=== PATIENT | female | born 1975 | race Caucasian/White ===

== ENCOUNTER → 2017-07-03 13:34 | Outpatient (CLI) | payer OTHER, SELFPAY ==
[2017-07-03 15:07] LABS: Anion Gap 7 (5-15); BUN 10 mg/dL (7-18); BUN/Creat Ratio 12.8 RATIO (10-20); Calcium,Total 8.3 mg/dL (8.5-10.1); Chloride 102 mmol/L (98-107); Creatinine, Serum 0.78 mg/dL (0.55-1.02); EST Glomerular Filtration Rate 86 mL/min (>60); Est Glom Filt Rate - Afr Amer 104 mL/min (>60); Glucose 82 mg/dL (70-110); Potassium 3.9 mmol/L (3.5-5.1); Sodium Level 139 mmol/L (136-145)
== END ==
PROVIDERS: Family Provider Family Medicine; PCP Family Medicine; Visit Provider Family Medicine
DX: R60.9 Edema, unspecified (principal)
CPT/HCPCS: 36415; 80048

== ENCOUNTER → 2017-07-17 10:56 | Outpatient (CLI) | payer OTHER, SELFPAY ==
[2017-07-17 13:10] LABS: Anion Gap 11 (5-15); BUN 9 mg/dL (7-18); Calcium,Total 8.3 mg/dL (8.5-10.1); Chloride 102 mmol/L (98-107); Creatinine, Serum 0.82 mg/dL (0.55-1.02); EST Glomerular Filtration Rate 81 mL/min (>60); Est Glom Filt Rate - Afr Amer 99 mL/min (>60); Glucose 121 mg/dL (74-106); Potassium 3.3 mmol/L (3.5-5.1); Sodium Level 139 mmol/L (136-145)
[2017-07-17 13:15] LABS: BNP,B-Type NATRIURETIC PEPTIDE < 2.0 pg/mL (0-100)
== END ==
PROVIDERS: Family Provider Family Medicine; PCP Family Medicine; Visit Provider Family Medicine
DX: R10.9 Unspecified abdominal pain (principal); R60.9 Edema, unspecified
CPT/HCPCS: 36415; 80048; 83880; 87086; 87088

== ENCOUNTER → 2017-07-28 11:32 | Outpatient (CLI) | payer OTHER, SELFPAY ==
[2017-07-28 14:01] LABS: Anion Gap 4 (5-15); BUN 7 mg/dL (7-18); BUN/Creat Ratio 7.5 RATIO (10-20); Calcium,Total 8.4 mg/dL (8.5-10.1); Chloride 105 mmol/L (98-107); Creatinine, Serum 0.94 mg/dL (0.55-1.02); EST Glomerular Filtration Rate 69 mL/min (>60); Est Glom Filt Rate - Afr Amer 84 mL/min (>60); Glucose 84 mg/dL (74-106); Potassium 4.2 mmol/L (3.5-5.1); Sodium Level 141 mmol/L (136-145)
== END ==
PROVIDERS: Family Provider Family Medicine; PCP Family Medicine; Visit Provider Family Medicine
DX: R60.9 Edema, unspecified (principal)
CPT/HCPCS: 36415; 80048

== ENCOUNTER → 2017-07-30 16:43 | Outpatient (CLI) | payer OTHER, SELFPAY ==
--- NOTE | 2017-07-30 16:46 | RAD_ITS ---
STUDY: X-RAY - ABDOMEN/PELVIS REASON FOR EXAM: Female, 41 years old. Left-sided hip pain TECHNIQUE: 4 views COMPARISON: None. FINDINGS: Normal visualized lung bases. There is an unremarkable bowel gas pattern. There is no demonstrated free abdominal air. The visualized liver, spleen and kidneys are grossly normal in size and morphology. Surgical clips in the pelvis likely from tubal ligation Normal soft tissue structures. Normal visualized osseous structures. RAD/Abd Inc Decub and/or Erect IMPRESSION: Normal x-ray examination of the abdomen and pelvis. Electronically Signed: Karan Santana MD at 10:33 EST , Service support ,
== END ==
PROVIDERS: Family Provider Family Medicine; PCP Family Medicine; Visit Provider Family Medicine
DX: R10.9 Unspecified abdominal pain (principal)
CPT/HCPCS: 74019

== ENCOUNTER → 2017-08-11 08:52 | Outpatient (CLI) | payer OTHER, SELFPAY ==
--- NOTE | 2017-08-11 08:53 | RAD_ITS ---
XR Spine Lumbar Min 4 Views INDICATION: back pain, no injury COMPARISON: None TECHNIQUE: 5 views of the lumbar spine FINDINGS: There is minimal left convex scoliosis of the lumbar spine. There are 5 lumbar type nonrib-bearing vertebral bodies. There is normal lumbar lordosis. Height of the vertebral bodies and intervertebral disc spaces is preserved. There is normal alignment at the facet joints. Cholecystectomy clips are noted. RAD/L/S Spine Min 4 Views IMPRESSION: Minimal left convex scoliosis of the lower spine. Otherwise unremarkable exam. at 1922 Reported and signed by: Bettie Jean MD Electronically Signed: Bettie Jean MD at 18:20 EST Tel , Service support ,
== END ==
PROVIDERS: Family Provider Family Medicine; PCP Family Medicine; Visit Provider Family Medicine
DX: M54.9 Dorsalgia, unspecified (principal)
CPT/HCPCS: 72110

== ENCOUNTER → 2017-08-18 13:28 | Outpatient (CLI) | payer OTHER, SELFPAY ==
--- NOTE | 2017-08-18 13:31 | ECHOCS_ITS ---
Reason For Study: EDEMA Procedure This was a 2D Doppler, Color Flow transthoracic echocardiogram. The study was technically difficult. Due to body habitus. Contrast injection was performed. Exam performed in department. Left Ventricle Normal LV size. Left ventricular systolic function is normal. The estimated ejection fraction is 60 %. Normal diastology for age. No regional wall motion abnormalities noted. Right Ventricle Normal RV size. Normal systolic function. Atria Normal left atrium. Normal right atrium. Mitral Valve Normal mitral valve. Tricuspid Valve Normal tricuspid valve. Mild (1+) tricuspid valve insufficiency. Pulmonary artery systolic pressure is 26 mmHg. Aortic Valve The aortic valve is not well visualized. Pulmonic Valve The pulmonic valve is not well visualized. Great Vessels Normal aortic root. The pulmonary artery is normal size. Normal inferior vena cava. Pericardium/Pleural No pericardial effusion. Medication 22 gauge I.V. with prn adaptor inserted into right arm. Diluted definity 3.0ml given slow IV push to enhance endocardial definition. MMode/2D Measurements & Calculations LVIDd: 5.2 cm IVSd: 1.1 cm Ao root diam: 2.8 cm LVIDs: 3.6 cm LVPWd: 1.4 cm LA dimension: 4.5 cm RVDd: 3.3 cm FS: 31.9 % LAV(MOD-bp): 56.2 ml LAV(MOD-bp) Indexed: 21.8 ml/m2 LA A4 area: 21.2 cm2 LAV(MOD-sp2): 48.1 ml LAV(MOD-sp4): 54.0 ml Doppler Measurements & Calculations MV E max juan josé: 96.8 cm/sec Lat Peak E' Juan José: 20.2 cm/sec Med Peak E' Juan José: 15.3 cm/sec MV A max juan josé: 64.2 cm/sec E/E' lat: 4.8 E/E' med: 6.3 MV E/A: 1.5 Ao V2 max: 161.8 cm/sec LV V1 max: 114.9 cm/sec PA V2 max: 110.2 cm/sec Ao max P.5 mmHg LV V1 max P.3 mmHg TR max juan josé: 229.0 cm/sec TR max P.0 mmHg Interpretation Summary Normal LV size. Left ventricular systolic function is normal. The estimated ejection fraction is 60 %. Normal diastology for age. Mild (1+) tricuspid valve insufficiency. Ordering Physician: Talon Ag Referring Physician: Talon Ag Performed By: Penelope Emerson, EULALIA, RVT
== END ==
PROVIDERS: Family Provider Family Medicine; PCP Family Medicine; Visit Provider Family Medicine
DX: R60.9 Edema, unspecified (principal); I07.1 Rheumatic tricuspid insufficiency
CPT/HCPCS: 93306; Q9957; A4216; C8929

== ENCOUNTER → 2017-09-02 10:14 | Outpatient (CLI) | payer OTHER, SELFPAY ==
--- NOTE | 2017-09-02 10:45 | MRI_ITS ---
STUDY: MRI LUMBAR SPINE WITHOUT CONTRAST REASON FOR EXAM: Female, 41 years old. back pain, leg pain,swelling; nki TECHNIQUE: Standardized fat and water weighted pulse sequences were obtained in the sagittal and axial planes. COMPARISON: X-ray August 11, 2017 FINDINGS: There is an exaggerated lumbar lordosis. There is no substantial scoliosis. Normal conus medullaris that terminates at the L1 level. There is slight retrolisthesis at L5-S1. Disc heights are maintained and discs are normally desiccated. Vertebral body heights are maintained. There is a T12 hemangioma. There is multilevel facet arthropathy and ligamentum flavum hypertrophy. T12/L1: Sagittal images only were obtained. Normal. L1/2: Normal disc. No central canal or neuroforaminal stenosis. L2/3: Normal disc. No central canal or neuroforaminal stenosis. L3/4: Normal disc. No central canal or left neuroforaminal stenosis. There is minimal right neuroforaminal stenosis. L4/5: Normal disc. No central canal or neuroforaminal stenosis. L5/S1: There is minimal diffuse bulge. No central canal or neuroforaminal stenosis. Normal visualized sacral ala. Normal visualized paraspinous soft tissue structures. MRI/Spine Lumbar (Routine) IMPRESSION: There is multilevel facet arthropathy and ligamentum flavum hypertrophy. Mild degenerative disc disease at L5-S1. Electronically Signed: Ivonne Mckenna MD at 12:40 EDT , Service support ,
== END ==
PROVIDERS: Family Provider Family Medicine; PCP Family Medicine; Visit Provider Family Medicine
DX: M54.9 Dorsalgia, unspecified (principal)
CPT/HCPCS: 72148

== ENCOUNTER → 2017-10-03 10:13 | Outpatient (CLI) | payer OTHER, SELFPAY ==
[2017-10-03 12:56] LABS: Chlamydia Trachomatis by PCR Negative (Negative); Neisserai gonorrhoeae by PCR Negative (Negative); Probe Check PASS; Sample Adequacy Control PASS; Specimen Processing Control PASS
== END ==
PROVIDERS: Visit Provider Obstetrics & Gynecology
DX: Z11.3 Encounter for screening for infections with a predominantly sexual mode of transmission (principal)
CPT/HCPCS: 87491; 87591

== ENCOUNTER 2018-03-12 13:27 | Emergency (ER) | payer OTHER, SELFPAY ==
[2018-03-12 13:28] VITALS: BP 131/79; PULSE 81; RESP 15; TEMP 36.7; O2SAT 96; BMI 44.4
--- NOTE | 2018-03-12 13:41 | EKG12_ITS ---
Test Reason : CHEST PAIN Blood Pressure : / mmHG Vent. Rate : 076 BPM Atrial Rate : 076 BPM P-R Int : 134 ms QRS Dur : 108 ms QT Int : 404 ms P-R-T Axes : 043 066 006 degrees QTc Int : 454 ms Normal sinus rhythm Normal ECG Confirmed by ANDRIY CASILLAS, BERTHA ([id number]), primer expeditor and drier MEMO URBINA ([id number]) on 03/16/2018 2:26:51 PM Referred By: DERICK/HARINI Confirmed By:BERTHA ASHRAF MD
--- NOTE | 2018-03-12 13:50 | RAD_ITS ---
STUDY: X-RAY CHEST REASON FOR EXAM: Female, 42 years old. SUDDEN ONSET CHEST PAIN RADIATING UP NECK TECHNIQUE: Single AP portable view of the chest. COMPARISON: None. FINDINGS: The lungs are clear and expanded. There is no demonstrated pleural abnormality. Normal size heart. Normal mediastinum and benjamin. Normal visualized pulmonary arteries. Normal visualized aortic arch and descending thoracic aorta. Normal visualized thoracic spine. Normal visualized ribs, clavicles, and shoulders. There is no demonstrated abnormality of the visualized soft tissue structures of the upper abdomen. RAD/Chest 1 View (Portable) IMPRESSION: Normal x-ray examination of the chest. Electronically Signed: Michael Maier MD at 14:09 EDT Tel , Service support ,
--- NOTE | 2018-03-12 13:55 | ED.DCSUM_ITS ---
- ER Visit Summary Date of Service: 03/12/18 Chief Complaint: [] Left-sided chest pressure today at work History of Present Illness: The patient is a 42 F [] depression hypothyroidism reports she was feeling fine today she works in a factory at a press she was not exerting herself she began experience left-sided chest pressure that went into her left neck she felt tired, notified coworkers and she was brought to the hospital she was given 4 baby aspirin. She indicates the symptoms lasted for a few minutes they have resolved now she is back to baseline she has no symptoms at this time. She has no history of AL PE DVT she indicates had a cardiac echo in the summer related to leg edema that was unremarkable, she is never had a cardiac stress test she has no history of exertional chest pain no fever no cough bowel bladder habits have been normal review of systems are negative and again she is resting comfortably in bed with no symptoms, she was found to have dependent edema related to her size this summer as part of workup for the edema Physical Examination: [] Her vital signs are within normal range she is resting comforting the bed her BMI 45, HEENT exam is unremarkable neck is supple the lungs are clear the heart tones are normal the abdomen is soft nontender the chest wall is nontender her lower extremities reveal 2-3+ symmetric edema that she states is not different she is moving all 4 extremities her chest wall is nontender her skin exam unremarkable pulses are symmetric bilaterally Test Results: [] Emergency Department Course and Treatment: [] EKG shows a sinus rhythm nothing acute we explained the long differential to the patient she understands she states she feels fine and really would just like to go home I explained her that given her symptoms we would recommend admission for further management if the initial ED evaluation was negative, she indicates she understands the risk of sudden cardiac families in the room with her however she reports she is feeling fine does not wish to be admitted but is agreeable to obtaining some screening labs and is willing to stay under ED observation to make sure symptoms do not recur Patient's lab studies are all generally unremarkable see those reports, chest x- ray unremarkable, on reevaluation she remains pain-free she has no symptoms He is in the room, we again strongly recommended admission given her chest pain we discussed the concept of sudden cardiac or from other life- threatening conditions she voiced clear understanding, she is able to read back to me my concerns, she indicated however she did not wish to be admitted she preferred outpatient management, at this time given all the above she will be asked to take an adult strength aspirin every day she will follow with her physicians to have an outpatient stress test and other management options pursued and she does agree to return for further management should her pain recur. In addition she indicates because of financial reasons she would like to go back to work even though I suggest that she not do that, and she is asking that I give her a light work slip, and she understands that for me light work basically means that she will sit in a chair and answer a phone or similar activity. Treatment Plan: [] Disposition: [] Home stable patient refused admission will leave AMA Impression: [] Chest pain etiology unclear This note was generated with [employer] dictation software. It may contain incorrect words, spelling, and punctuation that were not noted in review of the chart prior to signing ED Disposition - Plan for ED Patient: Chief Complaint: Chest Pain Referrals: Talon Ag MD [Primary Care Provider] -
[2018-03-12 14:09] LABS: Basophil# 0.02 X10^3/uL; Basophil% 0.3 % (0-1); Eosinophil# 0.19 X10^3/uL; Eosinophils% 2.8 % (0-5); Hematocrit 42.3 % (37-47); Hemoglobin 13.6 g/dl (12.0-15.0); Mean Corp Hgb Conc 32.2 g/gl (32-36); Mean Corpuscular Hgb 31.4 pg (27.0-32.0); Mean Corpuscular Volume 97.7 fL (81-99); Mean Platelet Vol. 11.2 fl (6.2-12.0); Monocyte# 0.46 X10^3/uL; Monocyte% 6.8 % (0-10); POSITIVE COUNT NO; POSITIVE DIFFERENTIAL NO; POSITIVE MORPHOLOGY NO; Platelet Count 221 K/mm3 (150-450); RBC Distribution Width CV 14.9 % (11.6-14.6); RBC Distribution Width SD 51.9 fl (35.1-43.9); Red Blood Count 4.33 M/mm3 (4.2-5.4); White Blood Count 6.8 K/mm3 (4.4-11.0)
[2018-03-12] MEDS: 0.9% Normal Saline 1,000 ML 150 ML IV (14:14)
[2018-03-12] MEDS: Ondansetron 4 MG/2 ML Vial IV (14:15)
[2018-03-12 14:22] LABS: Anion Gap 7 (5-15); BUN 6 mg/dL (7-18); BUN/Creat Ratio 6.6 RATIO (10-20); Calcium,Total 8.7 mg/dL (8.5-10.1); Chloride 105 mmol/L (98-107); EST Glomerular Filtration Rate 72 mL/min (>60); Est Glom Filt Rate - Afr Amer 87 mL/min (>60); Glucose 92 mg/dL (74-106); Potassium 3.7 mmol/L (3.5-5.1); Sodium Level 139 mmol/L (136-145)
--- NOTE | 2018-03-12 15:26 | ED.DEP ---
ED Disposition - Plan for ED Patient: Chief Complaint: Chest Pain Instructions: ED Chest Pain Atypical Unkn Cause Referrals: Talon Ag MD [Primary Care Provider] - Additional Instructions: Must follow-up with your outpatient providers to obtain further cardiac evaluation return to the ED if your chest pain reoccurs or if you feel sick in any way
[2018-03-12 15:42] VITALS: BP 107/83; PULSE 75; RESP 18; O2SAT 95
--- NOTE | 2018-03-12 15:43 | ED.RN ---
REVIEWED D/C INSTRUCTIONS, FOLLOW UP CARE, AND S/S THAT WOULD WARRANT A RETURN TO THE ED WITH PT. PT VERBALIZED AN UNDERSTANDING AND DENIES FURTHER QUESTIONS FOR THIS RN. PT SKIN P/W/D, RESP EVEN AND UNLABORED, PT A&O X 3, NO DISTRESS NOTED. PT AMBULATED OUT OF ED, GAIT STEADY.
== END 2018-03-12 15:44 | disposition home or self-care (01) ==
LOC: ED 14:50
PROVIDERS: Emergency Provider Emergency Medicine; Family Provider Family Medicine; PCP Family Medicine
DX: R07.9 Chest pain, unspecified (principal); F32.9 Major depressive disorder, single episode, unspecified; E03.9 Hypothyroidism, unspecified
CPT/HCPCS: 71045; 80048; 84484; 85025; 85379; 93005; 99285; J7030; J2405

== ENCOUNTER → 2018-03-24 06:23 | Outpatient (CLI) | payer OTHER, SELFPAY ==
--- NOTE | 2018-03-24 12:23 | STRESSREP ---
Stress Test Report Date: 03/24/2018 Procedure: Exercise tolerance test/imaging study Indications: Chest pain Consent: Per the patient Procedure: The patient exercised on a Sanjay protocol for 6 minutes completing Stage II achieving a peak heart rate of 151 bpm (85 % predicted maximal heart rate) with a peak blood pressure 182/98 mmHg and a peak MET capacity of 7 METs. The baseline ECG demonstrated normal sinus rhythm; subtle nonspecific ST segment abnormality. The peak exercise ECG demonstrated approximately 1 mm of horizontal/downsloping ST segment depression in leads II, III, aVF, and V4 through V6 with gradual resolution towards baseline in recovery. There were no cardiac dysrhythmias pretest, during exercise, or recovery. The functional capacity was considered average. There was no complaint of chest discomfort during exercise or recovery. The examination was discontinued secondary to dyspnea. Impression: 1. Technically adequate (percent predicted maximal heart rate greater than 85%) exercise tolerance test 2. Peak exercise ECG demonstrated approximately 1 mm of horizontal/downsloping ST segment depression in leads II, III, aVF, and V4 through V6 with gradual resolution towards baseline in recovery 3. There were no cardiac dysrhythmias pretest, during exercise, or recovery 4. Nuclear images pending Myocardial perfusion imaging study: Technique: The patient was injected with 14.8 mCi of technetium 99m Cardiolite and subsequently rest SPECT Cardiolite nuclear imaging was obtained in the horizontal long, vertical long, and short axis views. The patient exercised on a Sanjay protocol for 6 minutes completing Stage 2 achieving a peak heart rate of 151 bpm (85 % predicted maximal heart rate) with a peak blood pressure 182/98 mmHg and a peak MET capacity of 7 METs. The patient was injected with 44.7 mCi of technetium 99m Cardiolite and subsequently stress SPECT Cardiolite nuclear imaging was obtained in the horizontal long, vertical long, and short axis views. A gated Cardiolite study at peak stress was obtained. Interpretation: Rest and stress SPECT Cardiolite nuclear imaging status post realignment, normalization, and attenuation correction, status post stress of the appearance of subtle diminished tracer uptake in portions of the basal towards mid anterior and anteroseptal segments. There is end systolic thickening and brightening. The gated Cardiolite study demonstrates myocardial thickening and inward wall motion. The reported LVEF is 66 %. Impression: 1. Rest and stress SPECT Cardiolite nuclear imaging demonstrate status post stress the appearance of subtle diminished tracer uptake in portions of the basal towards mid anterior and anteroseptal segments potentially compatible shifting soft tissue attenuation/artifact, however, an area of myocardial ischemia cannot necessarily be excluded. 2. The gated Cardiolite study reports an LVEF of 66 %. This note was generated with [employer] software. It may contain incorrect words, spelling, and punctuation that were not noted in checking the note before signing.
--- NOTE | 2018-03-24 12:30 | STRESSREP_ITS ---
Stress Test Report Date: 03/24/2018 Procedure: Exercise tolerance test/imaging study Indications: Chest pain Consent: Per the patient Procedure: The patient exercised on a Sanjay protocol for 6 minutes completing Stage II achieving a peak heart rate of 151 bpm (85 % predicted maximal heart rate) with a peak blood pressure 182/98 mmHg and a peak MET capacity of 7 METs. The baseline ECG demonstrated normal sinus rhythm; subtle nonspecific ST segment abnormality. The peak exercise ECG demonstrated approximately 1 mm of horizontal/downsloping ST segment depression in leads II, III, aVF, and V4 through V6 with gradual resolution towards baseline in recovery. There were no cardiac dysrhythmias pretest, during exercise, or recovery. The functional capacity was considered average. There was no complaint of chest discomfort during exercise or recovery. The examination was discontinued secondary to dyspnea. Impression: 1. Technically adequate (percent predicted maximal heart rate greater than 85%) exercise tolerance test 2. Peak exercise ECG demonstrated approximately 1 mm of horizontal/downsloping ST segment depression in leads II, III, aVF, and V4 through V6 with gradual resolution towards baseline in recovery 3. There were no cardiac dysrhythmias pretest, during exercise, or recovery 4. Nuclear images pending Myocardial perfusion imaging study: Technique: The patient was injected with 14.8 mCi of technetium 99m Cardiolite and subsequently rest SPECT Cardiolite nuclear imaging was obtained in the horizontal long, vertical long, and short axis views. The patient exercised on a Sanjay protocol for 6 minutes completing Stage 2 achieving a peak heart rate of 151 bpm (85 % predicted maximal heart rate) with a peak blood pressure 182/98 mmHg and a peak MET capacity of 7 METs. The patient was injected with 44.7 mCi of technetium 99m Cardiolite and subsequently stress SPECT Cardiolite nuclear imaging was obtained in the horizontal long, vertical long, and short axis views. A gated Cardiolite study at peak stress was obtained. Interpretation: Rest and stress SPECT Cardiolite nuclear imaging status post realignment, n ormalization, and attenuation correction, status post stress of the appearance of subtle diminished tracer uptake in portions of the basal towards mid anterior and anteroseptal segments. There is end systolic thickening and brightening. The gated Cardiolite study demonstrates myocardial thickening and inward wall motion. The reported LVEF is 66 %. Impression: 1. Rest and stress SPECT Cardiolite nuclear imaging demonstrate status post stress the appearance of subtle diminished tracer uptake in portions of the basal towards mid anterior and anteroseptal segments potentially compatible shif ting soft tissue attenuation/artifact, however, an area of myocardial ischemia cannot necessarily be excluded. 2. The gated Cardiolite study reports an LVEF of 66 %. This note was generated with [employer] software. It may contain incorrect words, spelling, and punctuation that were not noted in checking the note before signing.
== END ==
PROVIDERS: Family Provider Family Medicine; PCP Family Medicine; Referring Provider Family Medicine; Visit Provider Family Medicine
DX: R07.9 Chest pain, unspecified (principal)
CPT/HCPCS: 78452; 93017; A9500; A4216

== ENCOUNTER → 2018-04-04 07:11 | Outpatient (CLI) | payer OTHER, SELFPAY ==
--- NOTE | 2018-04-04 07:20 | RAD_ITS ---
STUDY: X-RAY CHEST REASON FOR EXAM: Female, 42 years old. Chest pain. TECHNIQUE: PA and lateral views of the chest. COMPARISON: 03/12/2018 FINDINGS: The lungs are somewhat underexpanded. There is basilar minimally increased interstitial thickening/infiltrates again noted, right side more than the left. There is no demonstrated pleural abnormality. Normal size heart. Normal mediastinum and benjamin. Normal visualized pulmonary arteries. Normal visualized aortic arch and descending thoracic aorta. Normal visualized ribs, clavicles, and shoulders. There is no demonstrated abnormality of the visualized soft tissue structures of the upper abdomen. RAD/Chest PA and Lateral IMPRESSION: Bibasilar minimally increased interstitial thickening/infiltrates again noted right side more than the left. No consolidation or vascular congestion. Electronically Signed: Toni Ospina MD at 7:38 EDT Tel , Service support ,
[2018-04-04 08:10] LABS: Absolute Lymphocyte Count 1.51 X10^3/ul (0.83-4.51); Absolute Neutrophil Count 5.1 X10^3/uL (2.0-7.7); Basophil# 0.02 X10^3/uL; Basophil% 0.3 % (0-1); Eosinophil# 0.17 X10^3/uL; Eosinophils% 2.4 % (0-5); Hematocrit 41.8 % (37-47); Lymphocyte # 1.51 X10^3/ul (4.0); Lymphocyte % 20.9 % (19-41); Mean Corp Hgb Conc 31.1 g/gl (32-36); Mean Corpuscular Hgb 30.7 pg (27.0-32.0); Mean Corpuscular Volume 98.6 fL (81-99); Mean Platelet Vol. 10.9 fl (6.2-12.0); Monocyte# 0.39 X10^3/uL; Monocyte% 5.4 % (0-10); Neutrophil # 5.12 X10^3/uL (2.7-7.7); Neutrophil % 70.9 % (47-70); Platelet Count 218 K/mm3 (150-450); RBC Distribution Width CV 14.6 % (11.6-14.6); RBC Distribution Width SD 51.9 fl (35.1-43.9); Red Blood Count 4.24 M/mm3 (4.2-5.4); White Blood Count 7.2 K/mm3 (4.4-11.0)
[2018-04-04 08:12] LABS: POSITIVE COUNT NO; POSITIVE DIFFERENTIAL NO; POSITIVE MORPHOLOGY NO
[2018-04-04 08:27] LABS: Prothrombin Time (Protime)PT. 12.9 SECONDS (11.7-14.9)
[2018-04-04 08:28] LABS: Partial Thromboplast Time 30.2 Seconds (24.1-36.2)
[2018-04-04 08:33] LABS: AST(SGOT) 14 U/L (15-37); Alanine Aminotransfer ALT/SGPT 21 U/L (13-56); Albumin, Serum 3.4 g/dL (3.2-5.0); Alkaline Phosphatase 77 U/L (45-117); Anion Gap 5 (5-15); BUN 10 mg/dL (7-18); BUN/Creat Ratio 11.5 RATIO (10-20); Bilirubin, Direct 0.07 mg/dL (0.00-0.30); Calcium,Total 8.4 mg/dL (8.5-10.1); Chloride 107 mmol/L (98-107); Cholesterol 188 mg/dL (200); Creatinine, Serum 0.87 mg/dL (0.55-1.02); EST Glomerular Filtration Rate 75 mL/min (>60); Est Glom Filt Rate - Afr Amer 91 mL/min (>60); Globulin 4.2 g/dL (2.2-4.2); Glucose 90 mg/dL (74-106); High Density Lipoprotein 40 mg/dL; Potassium 4.2 mmol/L (3.5-5.1); Protein, Total 7.6 g/dL (6.4-8.2); Sodium Level 140 mmol/L (136-145); Triglycerides 139 mg/dL; Very Low Density Lipoprotein 28 mg/dL (5-40)
== END ==
PROVIDERS: Family Provider Family Medicine; PCP Family Medicine; Referring Provider Internal Medicine Cardiovascular Disease; Visit Provider Internal Medicine Cardiovascular Disease
DX: R07.9 Chest pain, unspecified (principal); R94.39 Abnormal result of other cardiovascular function study
CPT/HCPCS: 71046; 80048; 80061; 80076; 85025; 85610; 85730

== ENCOUNTER 2018-04-07 09:50 | Day surgery (SDC) | payer OTHER, SELFPAY ==
[2018-04-06 08:57] VITALS: BMI 47.0
[2018-04-07 09:56] LABS: Pregnancy, Serum, hCG Quali. NEGATIVE Negative (0-9 Nonpreg)
--- NOTE | 2018-04-07 12:11 | CL.D_ITS ---
Patient Name: JAXON ALDRIDGE Study Date: 04/07/2018 Performing: Talon Gotti MD Ht: 68.11 inches 173 cm : 1975 Wt: 308.65 lbs 140 kg Age: 42 Gender: female BSA: 2.46 PROCEDURE(S) PERFORMED KV12-PFE/COR/LV CLINICAL PROFILE AND INDICATIONS Indications: Suspected CAD Heart Failure: None Stress/Imaging Stress Test w/SPECT MPI: Yes Result: PositiveStress Test with SPECT MPI: Positive Angina Classification Anginal Classification w/in 2 Weeks: CCS III CAD Presentations: Other: Chest Pain CONCLUSIONS Elevated Left Ventricular End Diastolic Pressure (mild) Normal LV size, wall motion,and systolic function LVEF: by LV gram 65 % Normal coronary arteries RECOMMENDATIONS Risk factor modification Medical therapy Follow up with primary care physician DESCRIPTION OF PROCEDURE The patient arrived to the procedure lab. The risks and benefits of the procedure as well as a full d escription of our services here and current unavailability of surgical backup were fully explained to the patient and/or their significant other prior to the catheterization. The Timeout was completed, verifying the correct patient and procedure. The patient's procedural site was prepped and draped in the usual fashion. Local anesthetic was given subcutaneously to right radial region with Lidocaine 2% . Using a modified Seldinger technique, arterial access was obtained via the right radial artery, a 6 Fr sheath was inserted. Left Coronary Artery selective angiography was performed in multiple views u sing a 5 Fr. 4.0 [place] catheter. Right Coronary Artery selective angiography was then performed in mu ltiple views using a 5 Fr. 4.0 [place] catheter. Left Ventriculography was performed in DE JESUS projection using a 5 Fr. Pigtail catheter. LV to AO pullback pressures were then recorded.The arterial sheath was pulled and a TR Band was applied for hemostasis w/ 18ml air CORONARY ANGIOGRAPHY DOMINANCE: Right Dominant LEFT HEART ASSESSMENT Left Ventricular Ejection Fraction: by LV Gram 65 % Normal LV wall motion Elevated Left Ventricular End Diastolic Pressure LVEDP: 16 mmHg LEFT MAIN: Angiographically normal LEFT ANTERIOR DECENDING ARTERY: LAD: mid to distal: medium to small caliber vessel, Angiographically normal DIAGONAL 1: Large caliber long vessel: Angiographically normal CIRCUMFLEX ARTERY: Angiographically normal RIGHT CORONARY ARTERY: Vergy Large Dominant Vessel: Angiographically normal VALVE FINDINGS: Normal Aortic Valve function Normal Mitral Valve function AORTIC ROOT: Angiographically normal COMPLICATIONS No Complications PROCEDURE MEDICATIONS Versed 1 mg IV Fentanyl 50 mcg IV Fentanyl 50 mcg IV Versed 1 mg IV Oxygen: 2 L/min via nasal cannula Heparin diluted in 23cc Heparinized saline. Patient given 10cc IA of this solution. 04/07/2018 11:22 :13 Verapamil 2.5mg, Ntg 100mcgs, 2000 units of Heparin diluted in 23cc Heparinized saline. Patient give n 10cc IA of this solution. 04/07/2018 11:22:13 SUMMARY OF HEMODYNAMIC DATA Time AIR REST ECG 10:10:29 ECG 10:11:01 AO 112/77 (91) SA 11:24:55 LV 129/-1, 17 11:31:16 LV 123/2, 16 11:31:22 LV 122/0, 21 11:32:33 LVp 134/0, 18 11:32:37 AOp 123/76 (96) 11:32:42 Signed By Talon Gotti MD On 04/07/2018 12:10:15 Talon Gotti MD
== END 2018-04-07 14:25 | disposition home or self-care (01) ==
LOC: CLSP 09:50
PROVIDERS: Family Provider Family Medicine; PCP Family Medicine; Referring Provider Internal Medicine Cardiovascular Disease; Visit Provider Internal Medicine Cardiovascular Disease
DX: R07.9 Chest pain, unspecified (principal); R94.39 Abnormal result of other cardiovascular function study; R06.02 Shortness of breath; M79.7 Fibromyalgia; F17.200 Nicotine dependence, unspecified, uncomplicated
CPT/HCPCS: 84703; 93458; 99152; 99153; J7040; Q9967; C1769; C1894

== ENCOUNTER → 2018-05-15 17:57 | Outpatient (CLI) | payer OTHER, SELFPAY ==
[2018-05-06 16:02] VITALS: BMI 46.3
[2018-05-15 19:55] LABS: Chlamydia Trachomatis by PCR Negative (Negative); Neisserai gonorrhoeae by PCR Negative (Negative); Probe Check PASS; Sample Adequacy Control PASS; Specimen Processing Control PASS
[2018-05-22 16:19] LABS: HPV HC, High Risk Negative (Negative)
[2018-05-22 16:20] LABS: HPV Reflexed? NOT INDICATED
== END ==
PROVIDERS: Family Provider Family Medicine; PCP Family Medicine; Referring Provider Obstetrics & Gynecology; Visit Provider Obstetrics & Gynecology
DX: Z12.4 Encounter for screening for malignant neoplasm of cervix (principal); Z11.3 Encounter for screening for infections with a predominantly sexual mode of transmission
CPT/HCPCS: 87491; 87591; 88175; G0145

== ENCOUNTER → 2018-07-17 14:39 | Outpatient (CLI) | payer OTHER, SELFPAY ==
[2018-05-06 16:02] VITALS: BMI 46.3
--- NOTE | 2018-07-17 14:43 | BI_ITS ---
MAMMOGRAPHY - BILATERAL SCREENING REASON FOR EXAM: Female, 42 years old. Routine annual screening examination. PERTINENT HISTORY: Non-contributory. TECHNIQUE: Digital bilateral breast torrey (3D mammographic acquisition) in the CC and MLO projections. 2-D mediolateral oblique (MLO) and craniocaudad (CC) views of both breasts were obtained. CAD: Full Field Digital Mammography with Computer Added Detection was performed. COMPARISON: Comparison is made with prior study dated July 02, 2012. FINDINGS: Breast Composition: The breasts are almost entirely fatty. There are no dominant masses or suspicious calcifications. Stable 4.4 mm x 4.9 mm well-defined nodule in the upper lateral portion of the right breast. This may represent either a small cyst or small lymph node. No other significant abnormalities are identified. There has been no significant change since the prior study. BI/SCREENING MAMM (CAD), BILAT IMPRESSION: Stable bilateral screening mammogram. Yearly follow-up mammogram recommended. (A) ASSESSMENT CATEGORY: BIRADS Category 2: Benign. A letter regarding these results will be sent to the patient by the facility within 30 days. Approximately 10% of breast cancers are not detected by mammography. A normal mammogram should not delay biopsy of a clinically suspicious abnormality. [id number] Electronically Signed: Elroy Gallardo MD at 9:03 EST , Service support ,
== END ==
PROVIDERS: Family Provider Family Medicine; PCP Family Medicine; Referring Provider Obstetrics & Gynecology; Visit Provider Obstetrics & Gynecology
DX: Z12.31 Encounter for screening mammogram for malignant neoplasm of breast (principal)
CPT/HCPCS: 77063; 77067

== ENCOUNTER → 2018-11-25 | Outpatient (CLI) | payer OTHER, SELFPAY ==
[2018-05-06 16:02] VITALS: BMI 46.3
[2018-11-25 17:43] LABS: Absolute Lymphocyte Count 1.85 X10^3/ul (0.83-4.51); Absolute Neutrophil Count 3.5 X10^3/uL (2.0-7.7); Basophil# 0.03 X10^3/uL; Basophil% 0.5 % (0-1); Eosinophil# 0.21 X10^3/uL; Eosinophils% 3.5 % (0-5); Hematocrit 41.1 % (37-47); Hemoglobin 12.8 g/dl (12.0-15.0); Lymphocyte # 1.85 X10^3/ul (4.0); Lymphocyte % 30.8 % (19-41); Mean Corp Hgb Conc 31.1 g/gl (32-36); Mean Corpuscular Hgb 29.2 pg (27.0-32.0); Mean Corpuscular Volume 93.6 fL (81-99); Mean Platelet Vol. 10.7 fl (6.2-12.0); Monocyte# 0.42 X10^3/uL; Neutrophil # 3.49 X10^3/uL (2.7-7.7); Platelet Count 255 K/mm3 (150-450); RBC Distribution Width CV 14.7 % (11.6-14.6); RBC Distribution Width SD 48.1 fl (35.1-43.9); Red Blood Count 4.39 M/mm3 (4.2-5.4)
[2018-11-25 17:55] LABS: POSITIVE COUNT NO; POSITIVE DIFFERENTIAL NO; POSITIVE MORPHOLOGY NO
[2018-11-25 18:19] LABS: ALB/GLOB Ratio 1.1 RATIO (0.9-2.4); AST(SGOT) 12 U/L (15-37); Alanine Aminotransfer ALT/SGPT 15 U/L (13-56); Albumin, Serum 3.6 g/dL (3.2-5.0); Alkaline Phosphatase 73 U/L (45-117); Anion Gap 4 (5-15); BUN 8 mg/dL (7-18); Calcium,Total 8.3 mg/dL (8.5-10.1); Chloride 105 mmol/L (98-107); Creatinine, Serum 0.89 mg/dL (0.55-1.02); EST Glomerular Filtration Rate 74 mL/min (>60); Est Glom Filt Rate - Afr Amer 89 mL/min (>60); Globulin 3.3 g/dL (2.2-4.2); Glucose 80 mg/dL (74-106); Potassium 3.9 mmol/L (3.5-5.1); Protein, Total 6.9 g/dL (6.4-8.2); Sodium Level 138 mmol/L (136-145)
== END | disposition home or self-care (01) ==
LOC: MFPLAB 16:22
PROVIDERS: Family Provider Family Medicine; PCP Family Medicine; Referring Provider Family Medicine; Visit Provider Family Medicine
DX: R10.9 Unspecified abdominal pain (principal)
CPT/HCPCS: 36415; 80053; 85025

== ENCOUNTER → 2018-11-27 13:09 | Outpatient (CLI) | payer OTHER, SELFPAY ==
[2018-05-06 16:02] VITALS: BMI 46.3
--- NOTE | 2018-11-27 13:12 | CT_ITS ---
STUDY: CT ABDOMEN AND PELVIS WITH CONTRAST REASON FOR EXAM: Female, 42 years old. Diffuse abdominal pain RADIATION DOSAGE (If Supplied By Facility): CTDIvol = ( 18.74 ) mGy, DLP = ( 1317.48 ) mGycm TECHNIQUE: Transaxial images were obtained from the dome of the diaphragm to the symphysis pubis with oral contrast. 100 ml of Isovue 300 contrast was administered. Sagittal and coronal images were reconstructed. Individualized dose optimization techniques were used for this CT. COMPARISON: 03/16/2015 FINDINGS: The visualized lung bases are clear. The visualized portions of the heart and pericardium are within normal limits. The patient is status post cholecystectomy. The liver is within normal limits. There are no suspicious hepatic lesions. The spleen is normal in size. The pancreas is within normal limits. The adrenal glands are within normal limits. There are no renal or ureteral stones. There is no hydronephrosis. There are no focal renal lesions. Normal visualized stomach. There is no bowel obstruction or inflammation. The appendix is visualized and appears normal. There is a small fat-containing umbilical hernia. There is no bowel containing hernia. The aorta is normal in caliber. There is no abdominal or pelvic free air, free fluid, fluid collection or lymphadenopathy. There are no destructive osseous lesions. CT/Abdomen/Pelvis WITH Contrast IMPRESSION: No acute abdominal or pelvic pathology. Small fat-containing umbilical hernia. Electronically Signed: Vladimir Hewitt, at 15:21 EDT Tel , Service support ,
== END ==
LOC: CT 13:11
PROVIDERS: Family Provider Family Medicine; PCP Family Medicine; Referring Provider Family Medicine; Visit Provider Family Medicine
DX: R10.9 Unspecified abdominal pain (principal)
CPT/HCPCS: 74177; Q9967

== ENCOUNTER → 2019-01-16 10:05 | Outpatient (CLI) | payer OTHER, SELFPAY ==
[2018-05-06 16:02] VITALS: BMI 46.3
[2019-01-16 11:12] LABS: Anion Gap 5 (5-15); BUN 7 mg/dL (7-18); Calcium,Total 8.5 mg/dL (8.5-10.1); Chloride 108 mmol/L (98-107); Cholesterol 182 mg/dL (200); Creatinine, Serum 0.87 mg/dL (0.55-1.02); EST Glomerular Filtration Rate 75 mL/min (>60); Est Glom Filt Rate - Afr Amer 91 mL/min (>60); Glucose 90 mg/dL (74-106); High Density Lipoprotein 37 mg/dL; Potassium 3.9 mmol/L (3.5-5.1); Sodium Level 140 mmol/L (136-145); Thyroid Stim Hormone (TSH) 9.89 uIU/mL (0.358-3.74); Triglycerides 162 mg/dL; Very Low Density Lipoprotein 32 mg/dL (5-40)
[2019-01-18 10:59] LABS: Vitamin D,25 Hydroxy 10.4 ng/mL (29.95-100.01)
== END ==
PROVIDERS: Family Provider Family Medicine; PCP Family Medicine; Referring Provider Family Medicine; Visit Provider Family Medicine
DX: Z00.00 Encounter for general adult medical examination without abnormal findings (principal); E03.9 Hypothyroidism, unspecified
CPT/HCPCS: 36415; 80048; 80061; 82306; 84443

== ENCOUNTER → 2019-12-24 09:49 | Outpatient (CLI) | payer OTHER, SELFPAY ==
[2018-05-06 16:02] VITALS: BMI 46.3
[2019-12-24 12:12] LABS: Absolute Lymphocyte Count 1.65 X10^3/uL (0.83-4.51); Absolute Neutrophil Count 4.5 X10^3/uL (2.0-7.7); Basophil# 0.04 X10^3/uL; Basophil% 0.6 % (0-1); Eosinophil# 0.15 X10^3/uL; Eosinophils% 2.2 % (0-5); Hematocrit 40.3 % (37-47); Hemoglobin 12.8 g/dL (12.0-15.0); Lymphocyte # 1.65 X10^3/ul (4.0); Lymphocyte % 24.6 % (19-41); Mean Corp Hgb Conc 31.8 g/dL (32-36); Mean Corpuscular Hgb 31.1 pg (27.0-32.0); Mean Corpuscular Volume 98.1 fL (81-99); Mean Platelet Vol. 11.7 fl (6.2-12.0); Monocyte# 0.39 X10^3/uL; Monocyte% 5.8 % (0-10); NRBC Flagged by Analyzer 0 % (0-5); Neutrophil # 4.46 X10^3/uL (2.7-7.7); Neutrophil % 66.5 % (47-70); Platelet Count 242 K/mm3 (150-450); RBC Distribution Width CV 14.6 % (11.6-14.6); RBC Distribution Width SD 52.5 fl (35.1-43.9); Red Blood Count 4.11 M/mm3 (4.2-5.4); White Blood Count 6.7 K/mm3 (4.4-11.0)
[2019-12-24 12:39] LABS: Anion Gap 5 (5-15); BUN 7 mg/dL (7-18); BUN/Creat Ratio 8.6 RATIO (10-20); Calcium,Total 7.9 mg/dL (8.5-10.1); Chloride 105 mmol/L (98-107); Creatinine, Serum 0.81 mg/dL (0.55-1.02); EST Glomerular Filtration Rate 81 mL/min (>60); Est Glom Filt Rate - Afr Amer 98 mL/min (>60); Free T3 2.4 pg/mL (2.18-3.98); Glucose 132 mg/dL (74-106); Potassium 3.6 mmol/L (3.5-5.1); Sodium Level 136 mmol/L (136-145); T4 Total, Thyroxin 5.6 ug/dL (4.8-13.9); Thyroid Stim Hormone (TSH) 8.77 uIU/mL (0.358-3.74)
== END ==
PROVIDERS: PCP Family Medicine; Visit Provider Family Medicine
DX: E03.9 Hypothyroidism, unspecified (principal); R53.83 Other fatigue
CPT/HCPCS: 36415; 80048; 84436; 84443; 84481; 85025

== ENCOUNTER → 2020-01-21 09:40 | Outpatient (CLI) | payer OTHER, SELFPAY ==
[2018-05-06 16:02] VITALS: BMI 46.3
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
== END ==
LOC: MTLAB 09:42 → MTRAD 09:42
PROVIDERS: PCP Family Medicine; Referring Provider Family Medicine; Visit Provider Family Medicine
DX: S89.91XA Unspecified injury of right lower leg, initial encounter (principal)
CPT/HCPCS: 73562

== ENCOUNTER → 2020-02-12 08:52 | Outpatient (CLI) | payer OTHER, SELFPAY ==
[2018-05-06 16:02] VITALS: BMI 46.3
[2020-02-12 09:56] LABS: Anion Gap 2 (5-15); BUN 10 mg/dL (7-18); BUN/Creat Ratio 10.6 RATIO (10-20); Calcium,Total 8.5 mg/dL (8.5-10.1); Chloride 107 mmol/L (98-107); Creatinine, Serum 0.94 mg/dL (0.55-1.02); EST Glomerular Filtration Rate 68 mL/min (>60); Est Glom Filt Rate - Afr Amer 83 mL/min (>60); Glucose 96 mg/dL (74-106); Potassium 4.5 mmol/L (3.5-5.1); Sodium Level 140 mmol/L (136-145); Thyroid Stim Hormone (TSH) 6.09 uIU/mL (0.358-3.74)
== END ==
PROVIDERS: PCP Family Medicine; Referring Provider Family Medicine; Visit Provider Family Medicine
DX: E03.9 Hypothyroidism, unspecified (principal); R73.01 Impaired fasting glucose
CPT/HCPCS: 36415; 80048; 84443

== ENCOUNTER 2020-10-19 09:51 | Day surgery (SDC) | payer OTHER, SELFPAY ==
[2020-10-10 08:37] VITALS: BMI 46.3
--- NOTE | 2020-10-18 10:30 | EKG12_ITS ---
Test Reason : PRE OP Blood Pressure : / mmHG Vent. Rate : 082 BPM Atrial Rate : 082 BPM P-R Int : 134 ms QRS Dur : 102 ms QT Int : 394 ms P-R-T Axes : 060 058 020 degrees QTc Int : 460 ms Normal sinus rhythm Low voltage QRS Nonspecific ST abnormality Confirmed by DANIEL CASILLAS, ADRIEN ([id number]), photographic editor JOANN HERMAN ([id number]) on 10/19/2020 1:53:50 PM Referred By: Lillian Gallo Confirmed By:ADRIEN SANCHEZ MD
[2020-10-18 11:18] LABS: Hematocrit 41.9 % (37-47); Hemoglobin 12.9 g/dL (12.0-15.0); Mean Corp Hgb Conc 30.8 g/dL (32-36); Mean Corpuscular Hgb 29.1 pg (27.0-32.0); Mean Corpuscular Volume 94.4 fL (81-99); Mean Platelet Vol. 10.6 fl (6.2-12.0); Platelet Count 267 K/mm3 (150-450); RBC Distribution Width CV 14.4 % (11.6-14.6); RBC Distribution Width SD 49.8 fl (35.1-43.9); Red Blood Count 4.44 M/mm3 (4.2-5.4); White Blood Count 7.1 K/mm3 (4.4-11.0)
[2020-10-18 11:25] LABS: Prothrombin Time (Protime)PT. 12.4 SECONDS (11.7-14.9)
[2020-10-18 11:26] LABS: Partial Thromboplast Time 31.4 Seconds (24.1-36.2)
[2020-10-18 11:54] LABS: AST(SGOT) 11 U/L (15-37); Alanine Aminotransfer ALT/SGPT 19 U/L (13-56); Albumin, Serum 3.5 g/dL (3.2-5.0); Alkaline Phosphatase 77 U/L (45-117); Bilirubin, Direct 0.11 mg/dL (0.00-0.30); Globulin 4.1 g/dL (2.2-4.2); Protein, Total 7.6 g/dL (6.4-8.2); Thyroid Stim Hormone (TSH) 7.47 uIU/mL (0.358-3.74)
[2020-10-19] VITALS (9 sets, daily range): BP systolic 123–161; BP diastolic 76–92; PULSE 86–106; RESP 18–24; TEMP 36.6–37.7; O2SAT 85–99; BMI 40.8
--- NOTE | 2020-10-19 09:04 | HP_ITS ---
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 Lillian Gallo MD) Abnormal stress test Anxiety Chest pain Depression Fatigue Fibromyalgia Nausea Umbilical pain Surgical History (Updated 10/10/20 @ 08:34 by Desire López) History of cholecystectomy History of colonoscopy History of eye surgery History of lumpectomy of left breast History of tubal ligation Family History (Updated 10/10/20 @ 08:34 by Desire López) Father Heart disease Hypertension Aunt Heart disease Uncle Heart disease Mother Cancer Social History (Updated 10/10/20 @ 08:35 by Desire López) Smoking Status: Current every day smoker alcohol intake: current details: rare substance use type: does not use caffeine: Yes what type of physical activity do you participate in: none frequency: does not exercise HPI HPI HPI: JAXON ALDRIDGE, is a 44 F who presents to the office today for HPI HPI HPI: JAXON ALDRIDGE is a 44 F who presents to the office today for hernia at her umbilicus. Patient states she has noticed this for about 2 years states it has increased in size more recently. Occasionally gets some sharp pain at the area and then have some nausea. Patient states occasionally it can go back in but patient has not tried to push it back in for quite a while. Patient has had a previous laparoscopic cholecystectomy and also a tubal ligation. Hernias at the site of previous incision. Patient did have a CAT scan from 2019 that did show this hernia. ROS General General: Yes weight change and fatigue; No appetite, colon cancer, breast cancer or weakness HEENT HEENT: Yes eye surgery; No difficulty swallowing, eye injury, swollen glands or hoarseness Endo Endocrine: Yes thyroid disease; No diabetes mellitus, thyroid cancer, Hair loss, heat intolerance or cold intolerance Skin Skin: No rash or changing moles Musc Musculoskeletal: No back problems, arthritis, rheumatoid arthritis, gout or joint pain Cardio Cardiovascular: No pacemaker, heart disease, atrial fibrillation, high blood pressure, heart attack, heart stent, palpitations, shortness of breat with exertion or chest pain Psych Psychiatric: Yes depression and anxiety; No hearing voices Resp Respiratory: No shortness of breath, No sleep apnea, No cough, No COPD, No asthma, No emphysema and No wheezing Gastro Gastrointestinal: Yes abdominal pain, Yes nausea or vomiting, No diarrhea, No constipation, No blood in stool, No acid reflux, No hemorrhoids, No ulcers, No gallbladder problem and No black,tarry stools Shady Hematologic: No blood thinners, No blood disorders, No bleeding, No anemia and No blood clots Neuro Neurologic: No weakness Exam Const General: cooperative, healthy appearing, comfortable and no acute distress Neck Neck: normal visual inspection Resp Effort & Inspection: normal respiratory effort Cardio Rate: regular rate GI Inspection: non-distended and obesity Palpation: soft, no guarding, hernia (Incisional at umbilicus unable to completely reduce due to discomfort) and tender (At incisional hernia) Skin General: no rashes or lesions noted Neuro General: patient oriented x3 Psych Affect: normal affect COVID (Procedure Consent) Procedure Criteria Procedure Criteria: Yes Elective The surgeon/proceduralist and patient have discussed in detail the risk of exposure to and/or potential harm posed by the COVID-19 virus with having a surgery/procedure at this time versus the risk of? delaying the surgery/procedure. It is not possible to know either the risk of delaying the surgery or procedure or chance of getting an infection with perfect accuracy, but a joint decision was made between the patient and the surgeon/proceduralist ?to proceed at this time with the scheduled surgery/procedure as indicated on the consent form. Assessment and Plan Assessment and Plan (1) Incisional hernia of anterior abdominal wall without obstruction or gangrene: Status: Acute Plan - Dr. Lillian Gallo MD: Asked patient to hold her Excedrin/ASA for 5 days before surgery Plan to do an incisional hernia repair with mesh. Reviewed the procedure with the patient including the risks, including but not limited to infection, bleeding, injury to the small bowel, and recurrence. All questions were answered. Also, discussed risk of strangulated bowel. Cautioned the patient that if she has N/V, ABD distention, increased umbilical pain or changes of the skin over the hernia she needs to go to the ER. Patient no further question this time. Lillian Gallo M.D. Pager: [phone] [facility] [address] [place] [address], [address] [place] [address] Office: [phone] Coding Level of Care Code Off vis,new,level 3 Diagnoses Incisional hernia of anterior abdominal wall without obstruction or gangrene K43.2
--- NOTE | 2020-10-19 11:01 | HP.PCM_ITS ---
History and Physical Date of Admission: 10/19/20 Date of Service: 10/10/20 MR#:[id number]: [id number][id number] Provider:Devi Yoo/Sex: 44/F [facility] Intake Vital Signs 10/10/20 08:35 10/10/20 08:37 Height 5 ft 7 in Weight: 284 lb BMI 44.4 46.3 BP 127/87 H Blood Pressure Location Rt brachial Position Sitting Respiration 16 Pulse 80 Pulse Source Monitor Temp 97.8 F Temp Source Temporal Pulse Oximetry (%) 100 Oxygen Delivery Method room air Intake Visit Reasons: Umbilical Hernia Chief Complaint: Umbilical hernia 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 Lillian Gallo MD) Abnormal stress test Anxiety Chest pain Depression Fatigue Fibromyalgia Nausea Umbilical pain Surgical History (Updated 10/10/20 @ 08:34 by Desire López) History of cholecystectomy History of colonoscopy History of eye surgery History of lumpectomy of left breast History of tubal ligation Family History (Updated 10/10/20 @ 08:34 by Desire López) Father Heart disease Hypertension Aunt Heart disease Uncle Heart disease Mother Cancer Social History (Updated 10/10/20 @ 08:35 by Desire López) Smoking Status: Current every day smoker alcohol intake: current details: rare substance use type: does not use caffeine: Yes what type of physical activity do you participate in: none frequency: does not exercise HPI HPI HPI: JAXON ALDRIDGE, is a 44 F who presents to the office today for HPI HPI HPI: JAXON ALDRIDGE is a 44 F who presents to the office today for hernia at her umbilicus. Patient states she has noticed this for about 2 years states it has increased in size more recently. Occasionally gets some sharp pain at the area and then have some nausea. Patient states occasionally it can go back in but patient has not tried to push it back in for quite a while. Patient has had a previous laparoscopic cholecystectomy and also a tubal ligation. Hernias at the site of previous incision. Patient did have a CAT scan from 2019 that did show this hernia. ROS General General: Yes weight change and fatigue; No appetite, colon cancer, breast cancer or weakness HEENT HEENT: Yes eye surgery; No difficulty swallowing, eye injury, swollen glands or hoarseness Endo Endocrine: Yes thyroid disease; No diabetes mellitus, thyroid cancer, Hair loss, heat intolerance or cold intolerance Skin Skin: No rash or changing moles Musc Musculoskeletal: No back problems, arthritis, rheumatoid arthritis, gout or joint pain Cardio Cardiovascular: No pacemaker, heart disease, atrial fibrillation, high blood pressure, heart attack, heart stent, palpitations, shortness of breat with exertion or chest pain Psych Psychiatric: Yes depression and anxiety; No hearing voices Resp Respiratory: No shortness of breath, No sleep apnea, No cough, No COPD, No asthma, No emphysema and No wheezing Gastro Gastrointestinal: Yes abdominal pain, Yes nausea or vomiting, No diarrhea, No constipation, No blood in stool, No acid reflux, No hemorrhoids, No ulcers, No gallbladder problem and No black,tarry stools Shady Hematologic: No blood thinners, No blood disorders, No bleeding, No anemia and No blood clots Neuro Neurologic: No weakness Exam Const General: cooperative, healthy appearing, comfortable and no acute distress Neck Neck: normal visual inspection Resp Effort & Inspection: normal respiratory effort Cardio Rate: regular rate GI Inspection: non-distended and obesity Palpation: soft, no guarding, hernia (Incisional at umbilicus unable to completely reduce due to discomfort) and tender (At incisional hernia) Skin General: no rashes or lesions noted Neuro General: patient oriented x3 Psych Affect: normal affect COVID (Procedure Consent) Procedure Criteria Procedure Criteria: Yes Elective The surgeon/proceduralist and patient have discussed in detail the risk of exposure to and/or potential harm posed by the COVID-19 virus with having a surgery/procedure at this time versus the risk of delaying the surgery/procedure. It is not possible to know either the risk of delaying the surgery or procedure or chance of getting an infection with perfect accuracy, but a joint decision was made between the patient and the surgeon/proceduralist to proceed at this time with the scheduled surgery/procedure as indicated on the consent form. Assessment and Plan Assessment and Plan (1) Incisional hernia of anterior abdominal wall without obstruction or gangrene: Status: Acute Plan - Dr. Lillian Gallo MD: Asked patient to hold her Excedrin/ASA for 5 days before surgery Plan to do an incisional hernia repair with mesh. Reviewed the procedure with the patient including the risks, including but not limited to infection, bleeding, injury to the small bowel, and recurrence. All questions were answered. Also, discussed risk of strangulated bowel. Cautioned the patient that if she has N/V, ABD distention, increased umbilical pain or changes of the skin over the hernia she needs to go to the ER. Patient no further question this time. Lillian Gallo M.D. Pager: [phone] [facility] [address] [place] [address], [address] [place] [address] Office: [phone] Coding Level of Care Code Off vis,new,level 3 Diagnoses Incisional hernia of anterior abdominal wall without obstruction or gangrene K43.2 10/10/20 0912<Electronically signed by Lillian Gallo MD>Date Lillian Gallo MD
[2020-10-19] MEDS: Lactated Ringers 1,000 ML 100 ML IV ×2 (11:10→12:30)
--- NOTE | 2020-10-19 11:30 | HERN_PTH ---
PATIENT: JAXON ALDRIDGE LOC: [facility] U#:[id number] AGE/SX: 44/F ROOM: RE10/19/[address]: Dr. Lillian Gallo MD : 1975 BED: DIS: 10/19/2020 SPEC #: [id number] RECD: 10/19/20 13:20 STATUS: LUCNIA REEugene #: [id number] FLIP: 10/19/20 11:[address]: Lillian Gallo DEPT: SURGICAL PATHOLOGY RECD BY: Mulu Caldwell ENTERED: 10/19/20 13:56 SP TYPE: Hernia OTHR DR: Dr. Talon Ag MD Tissues: HERNIA Procedures: Surgery Specimen Level II HEADER OPERATION: Incisional hernia repair with mesh PRE-OP DIAGNOSIS: Incisional hernia of anterior abdominal wall TISSUE SUBMITTED: Hernia sac MICROSCOPIC DIAGNOSIS Hernia sac: Pieces of fibroadipose and fibroconnective tissue, consistent with hernia sac with focal mild chronic inflammation. SJ:curtis 10/20/2020 MICROSCOPIC DESCRIPTION Slides are reviewed. GROSS DESCRIPTION Received in fixative is one container labeled with the patient's name and designated hernia sac. The specimen consists of two pieces of cortes-pink soft tissue measuring in aggregate 6 x 2.5 x 0.5 cm. No mass lesion is identified. Multimedia Specialist sections are submitted in one cassette. / HARINI:curtis 10/19/20 TC:2 CPT: 26684
[2020-10-19] MEDS: Bupiv/Epi 0.25% 30 ML Vial (12:20)
--- NOTE | 2020-10-19 12:25 | OP.PCM_ITS ---
Report of Operation Date of Procedure: 10/19/20 Pre-Operative Diagnosis: Incarcerated incisional hernia Post-Operative Diagnosis: Same Surgery/Procedure Performed:: Insert incarcerated incisional hernia repair with mesh technical director: Romy Miller Type of Anesthesia: General/Supplemental Anesthesiologist: Phoenix Moreira Special Medications: Ancef 3 g IV x1 Specimen's removed: Hernia sac Estimated Blood Loss (mL): < 10 cc Fluids Replaced: Per anesthesia Description of Procedure: Patient was brought into the room placed supine on the operating table. Correct patient, procedure, site, positioning, special, was verified prior to procedure. General anesthesia was induced. The abdomen was prepped draped in usual sterile fashion. A curvilinear incision was made below the umbilicus with a 15 blade scalpel. This was deepened with electrocautery. A hemostat was used to go around the stalk of the umbilicus and Metzenbaum scissors was used to carefully divide the hernia sac from the skin of the umbilicus. The intra-abdominal fat as well as omentum was reduced back into the abdomen. The fascia around the hernia defect was cleared and the hernia defect measured 1.5 cm x 1.[address] hernia patch medium 6.4 cm (lot [id number] ref [id number]) was used. 1-0 Nurolon suture was used to secure the tails of the mesh to the fascia, defect was also closed with 2 eoyefm-ez-murdj 1-0 Nurolon sutures. The wound was irrigated with saline. Hemostasis was assured. The skin of the umbilicus was secured to the fascia using 3-0 Vicryl suture interrupted. The incision was closed with 3-0 Vicryl subdermal interrupted sutures and the skin was closed with interrupted 4-0 Monocryl sutures. Steri-Strips and Tegaderm and OpSite were placed over the incision once sterile cotton balls were placed in the umbilicus. Patient was extubated. Patient tolerated procedure well and was taken to the postanesthesia care unit in stable condition. Grafts/Implants Used: Ventralex ST hernia patch medium 6.4 cm (lot [id number] ref [id number]) Complications None
--- NOTE | 2020-10-19 12:29 | EX.PCM.DISCH ---
Discharge Instructions Diet Discharge Diet: Light diet - advance as tolerated Activity Discharge Activity: May not drive while taking narcotic pain medications. May shower in (days): 5 (Keep umbilical dressing clean dry and intact for 5 days. Okay to tape off with a Ziploc bag to shower. Or lower shower and upper sponge bath.) Lifting Restrictions: no lifting >20 lbs x 2 wks, no strenuous exercise for 4 wks Additional Activity Instructions:: - Dressing / Incision Call your doctor if your incision/area has: Continuous Slow Oozing, Sudden Increased Bleeding, Increased Pain/ Swelling, Increased Redness, Foul Smelling Discharge and Swelling at the incision site Call your doctor if you observe: Fever of 101 or Higher Remove Dressing in: 5 days (After 5 days okay to remove surgical dressing. Place cotton ball or rolled up gauze in bellybutton and retape daily for 2 more days.) Cleanse incision/area with: Do not get Incision Wet (for 5 days) Additional Dressing/Incision Instructions:: Steri-Strips will fall off in 7 to 10 days, if they do not fall off okay to remove after 10 days. Follow Up Care Please Follow Up With: Lillian Gallo MD When: Call the office for a follow-up appointment 2 weeks; after 5 PM and on the weekends call [phone] with any concerns. Test Results: Test results from this visit will be discussed in further detail at your follow-up appointment, if applicable. Discharge Plan Admission Primary Reason for Your Visit: Incarcerated incisional hernia Attending Provider: Lillian Gallo Primary Care Provider: Talon Ag Instructions Patient Instructions: ED Chest Pain, Noncardiac Discharge Orders/Prescriptions Prescriptions: New oxycodone-acetaminophen [Percocet] 5-325 mg tablet 1 - 2 tab PO Q6H PRN (Reason: pain) 3 Days Qty: 14 RF: 0 Continued levothyroxine 75 mcg tablet 75 mcg PO DAILY RF: 0 Held Excedrin Extra Strength 250-250-65 mg tablet 3 tab PO Q6H PRN (Reason: pain) Qty: 1 RF: 0 Hold Instructions: Resume on 10/23/20. Hold 2 to 3 days after surgery Referrals / Follow Up: Talon Ag MD [Primary Care Provider] - Disposition Disposition (needs filled in before D/C Order can be placed): Home, self care
[2020-10-19] MEDS: Ipratropium/Albuterol Sulfate 3 ML AMPUL.NEB INHALATION (13:15)
== END 2020-10-19 14:39 | disposition home or self-care (01) ==
LOC: SDC 09:51 → AC 09:52
PROVIDERS: Anesthesiology; PCP Family Medicine; Referring Provider Surgery; Visit Provider Surgery
PROC: (CPT 49561; principal; 2020-10-19 11:15)
DX: K43.2 Incisional hernia without obstruction or gangrene (principal); F17.200 Nicotine dependence, unspecified, uncomplicated; Z90.49 Acquired absence of other specified parts of digestive tract
CPT/HCPCS: 00832; 49561; 49568; 36415; 80076; 84443; 85027; 85610; 85730; 87426; 88302; 93005; 94640; C1781; C9803; J7120; J2405

== ENCOUNTER → 2021-03-31 09:29 | Outpatient (CLI) | payer OTHER, SELFPAY ==
[2021-03-31 10:34] LABS: Anion Gap 4 (5-15); BUN 8 mg/dL (7-18); BUN/Creat Ratio 9.2 RATIO (10-20); Calcium,Total 8.4 mg/dL (8.5-10.1); Chloride 106 mmol/L (98-107); Cholesterol 183 mg/dL (200); Creatinine, Serum 0.87 mg/dL (0.55-1.02); EST Glomerular Filtration Rate 75 mL/min (>60); Est Glom Filt Rate - Afr Amer 90 mL/min (>60); Free T3 2.4 pg/mL (2.18-3.98); Glucose 95 mg/dL (74-106); High Density Lipoprotein 41 mg/dL; Potassium 4.1 mmol/L (3.5-5.1); Sodium Level 141 mmol/L (136-145); T4 Free Direct 0.61 ng/dL (0.76-1.46); Triglycerides 167 mg/dL; Very Low Density Lipoprotein 33 mg/dL (5-40)
== END ==
PROVIDERS: PCP Family Medicine; Referring Provider Family Medicine; Visit Provider Family Medicine
DX: Z00.00 Encounter for general adult medical examination without abnormal findings (principal); E03.9 Hypothyroidism, unspecified
CPT/HCPCS: 36415; 80048; 80061; 84439; 84443; 84481

== ENCOUNTER 2021-06-19 10:58 | Outpatient (CLI) | payer OTHER, SELFPAY | END 2021-06-19 23:59 | disposition short-term general hospital (02) | LOC: LABSPEC 10:59 | PROVIDERS: PCP Family Medicine; Visit Provider Physician Assistant Surgical | DX: Z20.822 Contact with and (suspected) exposure to COVID-19 (principal) | CPT/HCPCS: 87635; U0003; U0005 ==

== ENCOUNTER → 2021-10-10 | Outpatient (CLI) | payer OTHER, SELFPAY ==
[2021-10-10 17:55] LABS: Absolute Neutrophil Count 3.5 X10^3/uL (2.0-7.7); Basophil# 0.04 X10^3/uL; Basophil% 0.6 % (0-1); Eosinophil# 0.21 X10^3/uL; Eosinophils% 3.4 % (0-5); Hematocrit 41.2 % (37-47); Hemoglobin 12.8 g/dL (12.0-15.0); Lymphocyte % 32.4 % (19-41); Mean Corp Hgb Conc 31.1 g/dL (32-36); Mean Corpuscular Hgb 28.8 pg (27.0-32.0); Mean Corpuscular Volume 92.8 fL (81-99); Mean Platelet Vol. 11.4 fl (6.2-12.0); Monocyte# 0.42 X10^3/uL; Monocyte% 6.8 % (0-10); NRBC Flagged by Analyzer 0 % (0-5); Neutrophil % 56.6 % (47-70); Platelet Count 249 K/mm3 (150-450); RBC Distribution Width CV 14.7 % (11.6-14.6); RBC Distribution Width SD 50.6 fl (35.1-43.9); Red Blood Count 4.44 M/mm3 (4.2-5.4); White Blood Count 6.2 K/mm3 (4.4-11.0)
[2021-10-10 18:19] LABS: Anion Gap 4 (5-15); BUN 10 mg/dL (7-18); BUN/Creat Ratio 11.3 RATIO (10-20); Calcium,Total 8.9 mg/dL (8.5-10.1); Chloride 108 mmol/L (98-107); Creatinine, Serum 0.88 mg/dL (0.55-1.02); EST Glomerular Filtration Rate 73 mL/min (>60); Est Glom Filt Rate - Afr Amer 88 mL/min (>60); Free T3 2.3 pg/mL (2.18-3.98); Glucose 81 mg/dL (74-106); Potassium 3.6 mmol/L (3.5-5.1); Sodium Level 139 mmol/L (136-145); Thyroid Stim Hormone (TSH) 8.05 uIU/mL (0.358-3.74)
== END | disposition home or self-care (01) ==
LOC: MTLAB 16:11
PROVIDERS: PCP Family Medicine; Referring Provider Family Medicine; Visit Provider Family Medicine
DX: E03.9 Hypothyroidism, unspecified (principal); R53.83 Other fatigue
CPT/HCPCS: 36415; 80048; 84439; 84443; 84481; 85025

== ENCOUNTER → 2021-10-26 | Outpatient (CLI) | payer OTHER, SELFPAY ==
[2021-11-01 08:20] LABS: HPV Reflexed? NOT INDICATED
== END | disposition home or self-care (01) ==
PROVIDERS: PCP Family Medicine; Referring Provider Nurse Practitioner Family; Visit Provider Nurse Practitioner Family
DX: Z12.4 Encounter for screening for malignant neoplasm of cervix (principal)
CPT/HCPCS: 88175; G0145

== ENCOUNTER → 2022-04-19 | Outpatient (CLI) | payer OTHER, SELFPAY ==
[2022-04-19 10:00] LABS: Absolute Lymphocyte Count 1.79 X10^3/uL (0.83-4.51); Absolute Neutrophil Count 6.2 X10^3/uL (2.0-7.7); Basophil# 0.05 X10^3/uL; Basophil% 0.6 % (0-1); Eosinophil# 0.23 X10^3/uL; Eosinophils% 2.6 % (0-5); Hematocrit 37.6 % (37-47); Hemoglobin 11.9 g/dL (12.0-15.0); Lymphocyte # 1.79 X10^3/ul (0.83-4.51); Lymphocyte % 20.5 % (19-41); Mean Corp Hgb Conc 31.6 g/dL (32-36); Mean Corpuscular Hgb 28.7 pg (27.0-32.0); Mean Corpuscular Volume 90.8 fL (81-99); Mean Platelet Vol. 11.2 fl (6.2-12.0); Monocyte# 0.51 X10^3/uL; Monocyte% 5.8 % (0-10); NRBC Flagged by Analyzer 0 % (0-5); Neutrophil # 6.15 X10^3/uL (2.7-7.7); Neutrophil % 70.4 % (47-70); Platelet Count 235 K/mm3 (150-450); RBC Distribution Width CV 14.7 % (11.6-14.6); RBC Distribution Width SD 49.2 fl (35.1-43.9); Red Blood Count 4.14 M/mm3 (4.2-5.4); White Blood Count 8.7 K/mm3 (4.4-11.0)
[2022-04-19 10:40] LABS: Anion Gap 8 (5-15); BUN 12 mg/dL (7-18); BUN/Creat Ratio 15.8 RATIO (10-20); Calcium,Total 8.4 mg/dL (8.5-10.1); Chloride 107 mmol/L (98-107); Cholesterol 143 mg/dL (200); Creatinine, Serum 0.76 mg/dL (0.55-1.02); EST Glomerular Filtration Rate 87 mL/min (>60); Est Glom Filt Rate - Afr Amer 105 mL/min (>60); Free T3 1.9 pg/mL (2.18-3.98); Glucose 108 mg/dL (74-106); High Density Lipoprotein 41 mg/dL; Potassium 3.9 mmol/L (3.5-5.1); Sodium Level 139 mmol/L (136-145); T4 Free Direct 0.82 ng/dL (0.76-1.46); Triglycerides 114 mg/dL; Very Low Density Lipoprotein 23 mg/dL (5-40)
== END | disposition home or self-care (01) ==
LOC: MTLAB 07:12
PROVIDERS: PCP Family Medicine; Referring Provider Family Medicine; Visit Provider Family Medicine
DX: Z00.00 Encounter for general adult medical examination without abnormal findings (principal); E03.9 Hypothyroidism, unspecified; N92.0 Excessive and frequent menstruation with regular cycle
CPT/HCPCS: 36415; 80048; 80061; 84439; 84443; 84481; 85025

== ENCOUNTER → 2022-08-12 | Outpatient (CLI) | payer OTHER, SELFPAY ==
[2022-08-12 18:08] LABS: Free T3 1.6 pg/mL (2.18-3.98); T4 Free Direct 0.73 ng/dL (0.76-1.46); Thyroid Stim Hormone (TSH) 9.67 uIU/mL (0.358-3.74)
== END | disposition home or self-care (01) ==
LOC: MFPLAB 15:43
PROVIDERS: PCP Family Medicine; Visit Provider Family Medicine
DX: E03.9 Hypothyroidism, unspecified (principal)
CPT/HCPCS: 36415; 84439; 84443; 84481

== ENCOUNTER → 2023-02-13 | Outpatient (CLI) | payer OTHER, SELFPAY ==
[2023-02-13 18:02] LABS: Anion Gap 7 (5-15); BUN 16 mg/dL (7-18); Calcium,Total 8.9 mg/dL (8.5-10.1); Chloride 107 mmol/L (98-107); Cholesterol 200 mg/dL (200); Creatinine, Serum 0.94 mg/dL (0.55-1.02); EST Glomerular Filtration Rate 68 mL/min (>60); Est Glom Filt Rate - Afr Amer 82 mL/min (>60); Free T3 2.4 pg/mL (2.18-3.98); Glucose 91 mg/dL (74-106); High Density Lipoprotein 45 mg/dL; Potassium 3.8 mmol/L (3.5-5.1); Sodium Level 139 mmol/L (136-145); T4 Free Direct 0.79 ng/dL (0.76-1.46); Triglycerides 195 mg/dL; Very Low Density Lipoprotein 39 mg/dL (5-40)
== END | disposition home or self-care (01) ==
LOC: MFPLAB 16:11
PROVIDERS: PCP Family Medicine; Visit Provider Family Medicine
DX: Z00.00 Encounter for general adult medical examination without abnormal findings (principal); E03.9 Hypothyroidism, unspecified
CPT/HCPCS: 36415; 80048; 80061; 84439; 84443; 84481

== ENCOUNTER → 2023-06-25 | Outpatient (CLI) | payer OTHER, SELFPAY ==
--- OUTSIDE RECORDS SUMMARY | 2023-06-25 09:30 | XMS RPT_ITS | CCD ---
Author Name Unknown Address [address] [place] [address] Organization [facility] Care Team Providers Care Photovoltaic Subcontractor Name Role Phone Rodolfo Sheth Unavailable EVANGELINA INTERIANO Unavailable Unavailable ADRIEN ENCISO Unavailable Unavailable LANDRY RAMIREZ Unavailable Unavailable ADRIEN ENCISO Unavailable Unavailable JOSE SANTOS (MANAGER INTELLIGENCE) Unavailable Unavailable JOSE SANTOS (MANAGER INTELLIGENCE) Unavailable Unavailable Saloni Marinelli Unavailable Rodolfo Sheth Unavailable Medications Completed/Discontinued Medications Medication Drug Class(es) Dates Sig (Normalized) Sig (Original) DULoxetine 30 mg delayed release oral capsule (3 sources) Serotonin and Norepinephrine Reuptake Inhibitor Start: 06-07-2016 CYMBALTA 30 MG CPEP DULOXETINE HCL [id number] Rodolfo Sheth FLUoxetine 40 mg oral capsule (3 sources) Serotonin Reuptake Inhibitor Start: 06-07-2016 PROZAC 40 MG CAPS FLUOXETINE HCL [id number] Rodolfo Sheth levothyroxine sodium 0.125 mg oral tablet (3 sources) l-Thyroxine Start: 06-07-2016 LEVOTHYROXINE SODIUM 125 MCG TABS LEVOTHYROXINE SODIUM [id number] Rodolfo Sheth Problems Active Problems Problem Classification Problem Date Documented Da te Episodic/Chronic Joint disorders and dislocations; trauma-related (3 sources) Derangement of knee; Translations: [Unspecified internal derangement of right knee] Onset: 06-07-2016 06-17-2016 Chronic Past or Other Problems Problem Classification Problem Date Documented Da te Episodic/Chronic Joint disorders and dislocations; trauma-related (3 sources) Other tear of lateral meniscus, current injury, right knee, initial encounter; Translations: [Other tear of lateral meniscus, current injury, right knee, initial encounter] Onset: 06-07-2016 06-17-2016 Episodic Other connective tissue disease (5 sources) Impingement syndrome of shoulder region; Translations: [Pain in left shoulder] Onset: 06-07-2016 08-12-2016 Episodic Other connective tissue disease (3 sources) Disorder of rotator cuff; Translations: [Bicipital tendinitis, left shoulder] Onset: 07-22-2016 12-30-2016 Episodic Other connective tissue disease (2 sources) Bicipital tendinitis, left shoulder; Translations: [Bicipital tendinitis, left shoulder] Onset: 07-22-2016 08-12-2016 Episodic Other non-traumatic joint disorders (2 sources) Pain in left shoulder; Translations: [Pain in left shoulder] Onset: 07-22-2016 07-22-2016 Episodic Other non-traumatic joint disorders (2 sources) Knee pain; Translations: [Pain in right knee] Onset: 06-07-2016 06-07-2016 Episodic Sprains and strains (3 sources) Strain of muscle(s) and tendon(s) of the rotator cuff of left shoulder, initial encounter; Translations: [Strain of muscle(s) and tendon(s) of the rotator cuff of left shoulder, initial encounter] Onset: 07-22-2016 08-12-2016 Episodic Unclassified (1 source) Encounter for screening mammogram for malignant neoplasm of breast; Translations: [Encounter for screening mammogram for malignant neoplasm of breast] Onset: 04-07-2017 Episodic Results Test Name Value Interpretation Reference Range Facil it Vital Signs Date Time Vital Sign Value Performing Clinician Timmy delgado 06-07-2016 15:11-0500 BMI (Body Mass Index) 48.65 kg/m2 [facility] Work Phone: 06-07-2016 15:11-0500 Height 172.72 cm [facility] Work Phone: 06-07-2016 15:11-0500 Weight 145.15 kg [facility] Work Phone: Encounters Encounter Date Encounter Type Care Provider Facility Start: 07-27-2017 End: 07-27-2017 Emergency department patient visit LANDRY RAMIREZ Facility:B Start: 06-16-2017 End: 06-16-2017 Emergency department patient visit EVANGELINA INTERIANO Facility:B Start: 04-07-2017 End: 04-07-2017 Ambulatory JOSE (MANAGER INTELLIGENCE) [facility] Start: 03-03-2017 End: 03-03-2017 Ambulatory JOSE (MANAGER INTELLIGENCE) [facility] Procedures Date Procedure Procedure Detail Performing Clinician Start: 09-02-2016 End: 09-15-2016 Drain/inject, joint/bursa Rodolfo Sheth Work Phone: Start: 06-07-2016 End: 06-17-2016 Drain/inject, joint/bursa Rodolfo Sheth Work Phone: Plan of Treatment Date Care Activity Detail Author Start: 01-09-2017 End: 01-09-2017 Appointment Appointment [facility] Work Phone: Start: 12-30-2016 End: 12-30-2016 Mri joint upr extrem w/o dye MRI Joint Upper Extremity [facility] Work Phone: Start: 07-31-2016 End: 07-31-2016 Physical Therapy General Physical Therapy [facility], [address] [place] [address], [phone] [facility] Work Phone: Start: 07-22-2016 End: 07-22-2016 X-ray exam of shoulder X-Ray, Shoulder [facility] Work Phone: Patient Education KNEE%20[facility] Work Phone: Payers Date Payer Category Payer Unknown [id number] Summary Purpose Family History No Family History Records FoundNo Family History Records Found Advance Directives No Advanced Directives Records FoundNo Advanced Directives Records Found Additional Source Comments INFORMATION SOURCE (unrecogn ized section and content) DATE CREATED AUTHOR AUTHOR'S BASILIA ROLLINSGABRIEL 12/02/2017 [facility] FOR RECORDS PERTAINING TO PATIENTS WHO ARE OR HAVE BEEN ENROLLED IN A CHEMICAL DEPENDENCY/SUBSTANCEABUSE PROGRAM, SOME INFORMATION MAY BE OMITTED. This clinical summary was aggregated from multiple sources. Caution should be exercised in using it in the provision of clinical care. This summary normalizes information from multiple sources, and as a consequence, information in this document may materially change the coding, format and clinical context of patient data. In addition, data may be omitted in some cases. CLINICAL DECISIONS SHOULD BE BASED ON THE PRIMARY CLINICAL RECORDS. [employer] provides no warranty or guarantee of the accuracy or completeness of information in this document.
[2023-06-25 11:07] LABS: Anion Gap 3 (5-15); BUN 10 mg/dL (7-18); BUN/Creat Ratio 12.2 RATIO (10-20); Calcium,Total 9.6 mg/dL (8.5-10.1); Chloride 110 mmol/L (98-107); Creatinine, Serum 0.82 mg/dL (0.55-1.02); EST Glomerular Filtration Rate 79 mL/min (>60); Est Glom Filt Rate - Afr Amer 96 mL/min (>60); Glucose 88 mg/dL (74-106); Potassium 4.3 mmol/L (3.5-5.1); Sodium Level 140 mmol/L (136-145)
== END | disposition home or self-care (01) ==
LOC: MFPLAB 08:55
PROVIDERS: PCP Family Medicine; Visit Provider Family Medicine
DX: R60.9 Edema, unspecified (principal)
CPT/HCPCS: 36415; 80048

== ENCOUNTER → 2023-07-25 | Outpatient (CLI) | payer OTHER, SELFPAY ==
--- OUTSIDE RECORDS SUMMARY | 2023-07-25 10:41 | XMS RPT_ITS | CCD ---
Author Name Unknown Address [address] [place] [address] Organization [facility] Care Team Providers Care Shellfish Processing Laborer Name Role Phone Rodolfo Sheth Unavailable EVANGELINA INTERIANO Unavailable Unavailable ADRIEN ENCISO Unavailable Unavailable LANDRY RAMIREZ Unavailable Unavailable ADRIEN ENCISO Unavailable Unavailable JOSE SANTOS (LEVER MILLER) Unavailable Unavailable JOSE SANTOS (LEVER MILLER) Unavailable Unavailable Saloni Marinelli Unavailable Rodolfo Sheth Unavailable Medications Completed/Discontinued Medications Medication Drug Class(es) Dates Sig (Normalized) Sig (Original) DULoxetine 30 mg delayed release oral capsule (3 sources) Serotonin and Norepinephrine Reuptake Inhibitor Start: 06-07-2016 CYMBALTA 30 MG CPEP DULOXETINE HCL [id number] Rodolfo Sheth FLUoxetine 40 mg oral capsule (3 sources) Serotonin Reuptake Inhibitor Start: 06-07-2016 PROZAC 40 MG CAPS FLUOXETINE HCL [id number] Rodolfo Sheth levothyroxine sodium 0.125 mg oral tablet (3 sources) l-Thyroxine Start: 06-07-2016 LEVOTHYROXINE SODIUM 125 MCG TABS LEVOTHYROXINE SODIUM [id number] Rodolfo Sheth Problems Active Problems Problem Classification [...] 15:11-0500 BMI (Body Mass Index) 48.65 kg/m2 [facility] Work Phone: 06-07-2016 15:11-0500 Height 172.72 cm [facility] Work Phone: 06-07-2016 15:11-0500 Weight 145.15 kg [facility] Work Phone: Encounters Encounter Date Encounter Type Care Provider Facility Start: 07-27-2017 End: 07-27-2017 Emergency department patient visit LANDRY RAMIREZ Facility:B Start: 06-16-2017 End: 06-16-2017 Emergency department patient visit EVANGELINA INTERIANO Facility:B Start: 04-07-2017 End: 04-07-2017 Ambulatory JOSE (LEVER MILLER) [facility] Start: 03-03-2017 End: 03-03-2017 Ambulatory JOSE (LEVER MILLER) [facility] Procedures Date Procedure Procedure Detail Performing Clinician [...] Therapy General Physical Therapy General Rehab Services, [address] [place] [address], [id number] [facility] Work Phone: Start: 07-22-2016 End: 07-22-2016 X-ray exam of shoulder X-Ray, Shoulder [facility] Work Phone: Patient Education KNEE%20[facility]IN [facility] Work Phone: Payers Date Payer Category Payer Unknown [id number] Summary Purpose Family History No Family History Records FoundNo Family History Records Found Advance Directives No Advanced Directives Records FoundNo Advanced Directives Records Found Additional Source Comments INFORMATION SOURCE (unrecogn ized section and content) DATE CREATED AUTHOR AUTHOR'S BASILIA WORKMAN 12/02/2017 [facility] FOR RECORDS PERTAINING TO PATIENTS WHO [...] BE BASED ON THE PRIMARY CLINICAL RECORDS. [facility] [employer] provides no warranty or guarantee of the accuracy or completeness of information in this document.
[2023-07-25 13:49] LABS: Anion Gap 5 (5-15); BUN 11 mg/dL (7-18); BUN/Creat Ratio 13.2 RATIO (10-20); Calcium,Total 9.3 mg/dL (8.5-10.1); Chloride 111 mmol/L (98-107); Creatinine, Serum 0.83 mg/dL (0.55-1.02); EST Glomerular Filtration Rate 78 mL/min (>60); Est Glom Filt Rate - Afr Amer 94 mL/min (>60); Glucose 96 mg/dL (74-106); Sodium Level 140 mmol/L (136-145)
== END | disposition home or self-care (01) ==
LOC: MTLAB 10:19
PROVIDERS: PCP Family Medicine; Referring Provider Family Medicine; Visit Provider Family Medicine
DX: R60.9 Edema, unspecified (principal)
CPT/HCPCS: 36415; 80048

== ENCOUNTER → 2023-08-06 | Outpatient (CLI) | payer OTHER, SELFPAY ==
--- NOTE | 2023-08-06 12:35 | US_ITS ---
STUDY: ULTRASOUND BREAST - LEFT REASON FOR EXAM: Female, 47 years old. Nipple discharge. TECHNIQUE: Axial and longitudinal images of the LEFT breast were performed with a high resolution ultrasound transducer. # OF IMAGES: 15 COMPARISON: Bilateral mammogram dated 07/02/2012 and left breast ultrasound dated 07/02/2012. Bilateral screening mammogram performed today. FINDINGS: LEFT Breast: Examination of the retroareolar region shows normal proximal and fatty replaced breast tissue. Sebaceous cyst described on prior ultrasound is no longer present. US/Breast Limited Unilateral IMPRESSION: No abnormality identified. Yearly follow-up screening mammogram recommended. ASSESSMENT CATEGORY: BIRADS Category 2: Benign. A letter regarding these results will be sent to the patient by the facility within 30 days. Electronically Signed: José Miguel Graham MD at 15:06 EST ,
--- NOTE | 2023-08-06 12:35 | BI_ITS ---
MAMMOGRAPHY - BILATERAL DIAGNOSTIC REASON FOR EXAM: Female, 47 years old. Left breast lump with nipple discharge. PERTINENT HISTORY: Aunt with breast cancer. TECHNIQUE: Digital bilateral breast torrey (3D mammographic acquisition) in the CC and MLO projections. 2-D mediolateral oblique (MLO) and craniocaudad (CC) views of both breasts were obtained. CAD: Full Field Digital Mammography with Computer Added Detection was performed. COMPARISON: Comparison is made with prior study of July 2018. FINDINGS: Breast Composition: The breasts are almost entirely fatty. There are no dominant masses or suspicious calcifications. Stable small benign-appearing left axillary lymph nodes. No other significant abnormalities are identified. There has been no significant change since the prior study. BI/DIAG MAMM W/CAD, BILAT IMPRESSION: Stable bilateral diagnostic mammogram. With the patient''s history of a left retroareolar palpable lump, correlation with ultrasound is recommended. ASSESSMENT CATEGORY: BIRADS Category 0: Incomplete. Need additional imaging evaluation. A letter regarding these results will be sent to the patient by the facility within 30 days. Approximately 10% of breast cancers are not detected by mammography. A normal mammogram should not delay biopsy of a clinically suspicious abnormality. Electronically Signed: Elroy Gallardo MD at 13:37 EST ,
== END | disposition home or self-care (01) ==
PROVIDERS: PCP Family Medicine; Referring Provider Family Medicine; Visit Provider Family Medicine
DX: N63.20 Unspecified lump in the left breast, unspecified quadrant (principal); Z80.3 Family history of malignant neoplasm of breast
CPT/HCPCS: 76642; 77062; 77066; G0279

== ENCOUNTER → 2023-08-23 | Outpatient (CLI) | payer OTHER, SELFPAY ==
--- OUTSIDE RECORDS SUMMARY | 2023-08-23 08:19 | XMS RPT_ITS | CCD ---
Author Name Unknown Address [address] [place] [address] Organization [facility] Care Team Providers Care Rn Intern Name Role Phone Rodolfo Sheth Unavailable EVANGELINA INTERIANO Unavailable Unavailable ADRIEN ENCISO Unavailable Unavailable LANDRY RAMIREZ Unavailable Unavailable ADRIEN ENCISO Unavailable Unavailable JOSE SANTOS (RELIGIOUS EDUCATION TEACHER) Unavailable Unavailable JOSE SANTOS (RELIGIOUS EDUCATION TEACHER) Unavailable Unavailable Saloni Marinelli Unavailable Rodolfo Sheth Unavailable Medications Completed/Discontinued Medications Medication Drug Class(es) Dates Sig (Normalized) Sig (Original) DULoxetine 30 mg delayed release oral capsule (3 sources) Serotonin and Norepinephrine Reuptake Inhibitor Start: 06-07-2016 CYMBALTA 30 MG CPEP DULOXETINE HCL [id number] Rodolfo Sheth FLUoxetine 40 mg oral capsule (3 sources) Serotonin Reuptake Inhibitor Start: 06-07-2016 PROZAC 40 MG CAPS FLUOXETINE HCL [id number] Rodolfo Sheth levothyroxine sodium 0.125 mg oral tablet (3 sources) l-Thyroxine Start: 06-07-2016 LEVOTHYROXINE SODIUM 125 MCG TABS LEVOTHYROXINE SODIUM [id number] Rodolfo Sheth Problems Active Problems Problem Classification [...] Test Name Value Interpretation Reference Range Facil ity
[2023-08-23 10:04] LABS: Anion Gap 6 (5-15); BUN 11 mg/dL (7-18); BUN/Creat Ratio 12.9 RATIO (10-20); Calcium,Total 8.9 mg/dL (8.5-10.1); Chloride 104 mmol/L (98-107); Cholesterol 228 mg/dL (200); Creatinine, Serum 0.86 mg/dL (0.55-1.02); EST Glomerular Filtration Rate 75 mL/min (>60); Est Glom Filt Rate - Afr Amer 91 mL/min (>60); Free T3 2.2 pg/mL (2.18-3.98); Glucose 89 mg/dL (74-106); High Density Lipoprotein 55 mg/dL; Sodium Level 139 mmol/L (136-145); T4 Free Direct 0.78 ng/dL (0.76-1.46); Thyroid Stim Hormone (TSH) 7.81 uIU/mL (0.358-3.74); Triglycerides 216 mg/dL; Very Low Density Lipoprotein 43 mg/dL (5-40)
== END | disposition home or self-care (01) ==
LOC: LAB 08:16
PROVIDERS: PCP Family Medicine; Referring Provider Family Medicine; Visit Provider Family Medicine
DX: Z00.00 Encounter for general adult medical examination without abnormal findings (principal); E03.9 Hypothyroidism, unspecified
CPT/HCPCS: 36415; 80048; 80061; 84439; 84443; 84481

== ENCOUNTER → 2023-12-27 | Outpatient (CLI) | payer OTHER, SELFPAY ==
[2023-12-27 09:16] LABS: ALB/GLOB Ratio 0.8 RATIO (0.9-2.4); AST(SGOT) 25 U/L (15-37); Alanine Aminotransfer ALT/SGPT 20 U/L (13-56); Albumin, Serum 3.3 g/dL (3.2-5.0); Alkaline Phosphatase 80 U/L (45-117); Anion Gap 5 (5-15); BUN 8 mg/dL (7-18); BUN/Creat Ratio 9.2 RATIO (10-20); Calcium,Total 8.8 mg/dL (8.5-10.1); Chloride 108 mmol/L (98-107); Cholesterol 185 mg/dL (200); Creatinine, Serum 0.87 mg/dL (0.55-1.02); EST Glomerular Filtration Rate 74 mL/min (>60); Est Glom Filt Rate - Afr Amer 89 mL/min (>60); Free T3 2.1 pg/mL (2.18-3.98); Globulin 4.3 g/dL (2.2-4.2); Glucose 104 mg/dL (74-106); High Density Lipoprotein 48 mg/dL; Potassium 4.6 mmol/L (3.5-5.1); Protein, Total 7.6 g/dL (6.4-8.2); Sodium Level 139 mmol/L (136-145); T4 Free Direct 0.81 ng/dL (0.76-1.46); Thyroid Stim Hormone (TSH) 9.36 uIU/mL (0.358-3.74); Triglycerides 179 mg/dL; Very Low Density Lipoprotein 36 mg/dL (5-40)
== END | disposition home or self-care (01) ==
LOC: LAB 08:04
PROVIDERS: PCP Family Medicine; Referring Provider Family Medicine; Visit Provider Family Medicine
DX: E78.5 Hyperlipidemia, unspecified (principal); E03.9 Hypothyroidism, unspecified
CPT/HCPCS: 36415; 80053; 80061; 84439; 84443; 84481

== ENCOUNTER → 2024-01-07 | Outpatient (CLI) | payer OTHER, SELFPAY ==
--- NOTE | 2024-01-07 16:50 | US_ITS ---
INDICATION: Abnormal uterine bleeding EXAMINATION: Ultrasound US Pelvis Non-OB Complete TECHNIQUE: Transabdominal and transvaginal pelvic ultrasound was performed. Grayscale, spectral waveform, and color flow Doppler evaluation of the adnexa. COMPARISON: No relevant prior comparison study available FINDINGS: UTERUS: Anteverted. The uterus measures 10.6 x 5.8 x 4.6 cm. There is no uterine mass. The endometrial stripe measures 7 mm in AP diameter which is within normal limits. RIGHT OVARY: Not visualized. LEFT OVARY: 2.2 x 1.7 x 1.3 cm. Non-enlarged, normal echogenicity. There is normal arterial inflow and venous outflow present in the left ovary. FREE FLUID: None. US/Pelvic (Non ) IMPRESSION: 1. No significant abnormality. 2. Nonvisualization of the left ovary. Electronically Signed: Rick Ceja MD at 11:09 EDT ,
== END | disposition home or self-care (01) ==
LOC: US 16:44
PROVIDERS: PCP Family Medicine; Referring Provider Family Medicine; Visit Provider Family Medicine
DX: N93.9 Abnormal uterine and vaginal bleeding, unspecified (principal)
CPT/HCPCS: 76856

== ENCOUNTER → 2024-02-02 | Outpatient (CLI) | payer OTHER, SELFPAY ==
--- NOTE | 2024-02-02 16:57 | RAD_ITS ---
INDICATION: PAIN EXAMINATION/TECHNIQUE: X-RAY - LEFT XR Foot Min 3 Views 3 VIEWS COMPARISON: No relevant prior comparison study available FINDINGS: SOFT TISSUES: No soft tissue swelling or gas. No radiopaque foreign body. BONES/JOINTS: There is normal bony alignment. Mild osteophyte formation. No fracture or dislocation. There is a plantar spur.. . No sclerotic or destructive changes observed. RAD/Foot min 3 Views IMPRESSION: 1. Mild degenerative change and osteophyte formation in the midfoot. Plantar spur also noted. 2. No acute fracture dislocation or destructive bony process. Electronically Signed: Levi Hawley MD at 21:37 EDT ,
== END | disposition home or self-care (01) ==
LOC: MTRAD 16:56
PROVIDERS: PCP Family Medicine; Referring Provider Family Medicine; Visit Provider Family Medicine
DX: M79.673 Pain in unspecified foot (principal)
CPT/HCPCS: 73630

== ENCOUNTER 2024-06-01 07:00 | Outpatient (RCR) | payer OTHER, SELFPAY ==
--- NOTE | 2024-05-05 19:01 | HP.PTEVAL_ITS ---
Patient's Visit Information Visit Information Visit Information: JAXON ALDRIDGE is a 48 year old F referred to Physical Therapy by Dr. 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 Date of Evaluation: 05/05/24 Physical Therapist: MASOUD Chawla Visit Plan Frequency: 2-3x /Week Duration: 6 Weeks Plan: 2-3X/ week for 6 weeks for stretching of the L piriformis, 90/90 nerve root stretching, Prone to JESSICA and progression, core stability, MT if needed to L piriformis, gait training, balance and ankle stabilization, ankle strength, US if needed for pain on the L foot with HEP HEP: Standing wall calf stretch, LTR, Prone to JESSICA, seated piriformis stretch, seated toe towel curls, and ankle DF/PF Subjective Subjective: She has orthotics and they are helping. Her pain is mostly in the L foot. This has been going on for a long time and it got to the point she could not walk or tie her shoe. She has had the orthotics for about 2 months and she is on her feet a lot and has bought a second pain. She is not stretching. Right now she she has 3/10 pain from her back down her whole leg. The sciatic started the whole foot pain. No images were done on her back. She has LBP but pain is mostly in her buttocks and her whole L leg is just achy. She gets sharp pain if she does too much bending/twisting etc. Sometimes she will be sitting there and get a sharp pain all the way down the leg. She gets tingling mostly in her leg. The pain sometimes wakes her up at night. She thinks that transitioning from sitting to standing hurts the worse. Sitting increases her pain more than walking as far as the sciatica goes. Pain L hip/L leg pain: Pain Intensity (Out of 10): 2 L foot pain: Pain Intensity (Out of 10): 4 R foot pain: Pain Intensity (Out of 10): 0 Objective Objective: Gait: walks with decrease stance time on the L LE L ankle DF 0 and PF 42 degrees.... with DF pt felt a big pull in her calf. Patellar DTR: 0/3 B + SLUMP test on the L for pain down the whole L leg and + SLR on the L for pain on the L side Prone to JESSICA X 10... less pull the more she did. LE MMT: R hip flex 8.7 and L 8.1 R knee ext 8.8 and L 7.2 R knee flex 6 and L 6.5 Palpation: increase tenderness over L piriformis, greater trochanter, and IT band Worked on bringing L knee to R shoulder and able to loosen up some with less pain but pain at first LTR: pt had increase pain at first but did loosen up the more she did Pt walked out after eval and felt much looser Balance/Special Test Scores Lower Extremity Functional Score: 25 Goals Goal 1:: I HEP Goal Time Frame: 6-8 Weeks Goal 2:: Decrease L leg and foot pain by 50% Goal Time Frame: 6-8 Weeks Goal 3:: Be able to stretch L piriformis without pain and increase ROM Goal Time Frame: 6-8 Weeks Goal 4:: Walk with no antalgic gait Goal Time Frame: 6-8 Weeks Rehabilitation Potential Rehabilitation Potential: Good Anticipated Interventions Patient/Client Instruction: Educate patient on: Condition and Plan of Care For the Purpose of:: To decrease pain, To increase ROM, To improve nutrient delivery to tissue, To improve muscle performance and motor function, To improve ability to perform ADL's, To increase tolerance to activity/condition/position, To improve performance and independence with ADL's, To decrease level of supervision to perform tasks, To improve ability of physical actions for home/community/work/leisure, To improve gait and locomotor functions, To improve health of tissue, To decrease soft tissue restriction, To increase flexibil ity/ROM, To improve balance and To improve safety with gait Therapeutic Exercise to Include: Strength training, Endurance training, Balance training, Postural training, Flexibilty training, Gait and locomotor training, Neuromotor development, Active ROM and Dynamic Lumbar Stabilization For the Purpose of:: To decrease pain, To increase ROM, To improve nutrient delivery to tissue, To improve muscle performance and motor function, To improve ability to perform ADL's, To increase tolerance to activity/condition/position, To improve performance and independence with ADL's, To improve ability of physical actions for home/community/work/leisure, To improve gait and locomotor functions, To improve health of tissue, To increase flexibility/ROM, To improve endurance and To improve safety with gait Functional Training to Include: Gait training For the Purpose of:: To improve gait and locomotor functions Manual Therapy Techniques to Include: Passive ROM and Soft tissue mobilization For the Purpose of:: To decrease pain, To increase ROM, To improve nutrient delivery to tissue and To improve muscle performance and motor function Cryotherapy (ice pack, ice massage): Yes Thermo therapy (hot pack): Yes Ultrasound (thermal/non thermal): Yes For the Purpose of:: To decrease pain, To decrease swelling/inflammation, To increase ROM and To improve nutrient delivery to tissue Text: Thank you for the opportunity to evaluate your patient. For Medicare and Medicare HMO plans, please review the plan of care and approve it. It will need to be FAXED BACK to us at [phone] for Medicare purposes. For Medicare only, by signing this I certify the plan of care. Please let me know if there are questions or concerns regarding this plan of care. Physician Signature: Date:
--- NOTE | 2024-06-01 07:35 | HP.PTDCSUM ---
Discharge Summary D/C summary: It has been my pleasure to treat JAXON ALDRIDGE referred by Dr. 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 Discharge Date: 06/01/24 Please see the following information for a summary of their discharge status. Subjective Subjective: Pt is doing better and PT seems to be working. The pain is less frequent. It bothers her if she sits too long. She feels that the stretching with the towel helps a lot. Pt wants to continue to do her HEP for now. Pain L hip/L leg pain: Pain Intensity (Out of 10): 3 L foot pain: Pain Intensity (Out of 10): 3 R foot pain: Pain Intensity (Out of 10): Unrated Overall Improvement % Improvement: 80 Objective Objective/Function: Gait: walks with shorter stride length but equal stance time Piriformis stretch: Pt is still pretty tight B but worse L than R. Stairs: hard to ascend the step with the L leg but able to go up and down recip with 2 hand rails Pt reports full understanding of HEP Goals Goal 1:: I HEP Goal Progress: Goal Met Goal 2:: Decrease L leg and foot pain by 50% Goal Progress: Goal Met Goal 3:: Be able to stretch L piriformis without pain and increase ROM Goal Progress: Progressing Goal 4:: Walk with no antalgic gait Goal Progress: Goal Met Plan Plan: DC PT to HEP per pt request. D/C Information Discharge Comments: DC PT to HEP d/c sentence: If there are questions or concerns regarding this patient's physical therapy, please feel free to call me at [phone]. Thank you for the referral of this patient. Sincerely, Gertrude Westbrook, MPT Balance/Gait/Functional tests Balance/Special Test Scores Lower Extremity Functional Score: 34 Improvement % Improvement: 80
== END 2024-06-01 09:18 | disposition home or self-care (01) ==
LOC: PT 07:00
PROVIDERS: PCP Family Medicine; Referring Provider Student in an Organized Health Care Education/Training Program; Visit Provider Student in an Organized Health Care Education/Training Program
DX: M19.90 Unspecified osteoarthritis, unspecified site (principal); M54.30 Sciatica, unspecified side; M21.6X1 Other acquired deformities of right foot; M21.6X2 Other acquired deformities of left foot
CPT/HCPCS: 97110; 97162; 97530

== ENCOUNTER → 2024-06-22 | Outpatient (CLI) | payer OTHER, SELFPAY ==
--- NOTE | 2024-06-22 09:58 | RAD_ITS ---
INDICATION: ABDOMINAL PAIN EXAMINATION/TECHNIQUE: X-RAY - XR Abdomen 1 View COMPARISON: CT dated November 27, 2018 FINDINGS: BOWEL GAS PATTERN: Non-obstructive. No bowel or stomach distention. FREE AIR: Not assessed on a single supine view. ORGANOMEGALY: Not seen. CALCIFICATIONS: No abnormal calcifications observed. LOWER CHEST: No acute pathology. BONES AND SOFT TISSUES: No acute pathology. There are surgical clips within the right upper quadrant consistent with prior cholecystectomy. There are tubal ligation clips in place. RAD/Abdomen Single View IMPRESSION: Nonspecific bowel gas pattern. Electronically Signed: Kathy Otto MD at 9:06 EST ,
[2024-06-22 13:08] LABS: ALB/GLOB Ratio 0.8 RATIO (0.9-2.4); AST(SGOT) 8 U/L (15-37); Alanine Aminotransfer ALT/SGPT 17 U/L (13-56); Albumin, Serum 3.3 g/dL (3.2-5.0); Alkaline Phosphatase 88 U/L (45-117); Anion Gap 2 (5-15); BUN 9 mg/dL (7-18); BUN/Creat Ratio 10.5 RATIO (10-20); Calcium,Total 9.4 mg/dL (8.5-10.1); Chloride 105 mmol/L (98-107); Creatinine, Serum 0.85 mg/dL (0.55-1.02); EST Glomerular Filtration Rate 75 mL/min (>60); Est Glom Filt Rate - Afr Amer 91 mL/min (>60); Globulin 4.4 g/dL (2.2-4.2); Glucose 95 mg/dL (74-106); Lipase 29 U/L (13-75); Potassium 3.9 mmol/L (3.5-5.1); Protein, Total 7.7 g/dL (6.4-8.2); Sodium Level 137 mmol/L (136-145)
[2024-06-22 15:11] LABS: Absolute Neutrophil Count 5.1 X10^3/uL (2.0-7.7); Basophil# 0.05 X10^3/uL; Basophil% 0.6 % (0-1); Eosinophil# 0.24 X10^3/uL; Hematocrit 41.9 % (37-47); Hemoglobin 13.2 g/dL (12.0-15.0); Lymphocyte % 25.4 % (19-41); Mean Corp Hgb Conc 31.5 g/dL (32-36); Mean Corpuscular Volume 95.2 fL (81-99); Mean Platelet Vol. 11.2 fl (6.2-12.0); Monocyte# 0.42 X10^3/uL; Monocyte% 5.3 % (0-10); NRBC Flagged by Analyzer 0 % (0-5); Neutrophil # 5.13 X10^3/uL (2.7-7.7); Neutrophil % 65.3 % (47-70); Platelet Count 229 K/mm3 (150-450); RBC Distribution Width CV 14.6 % (11.6-14.6); RBC Distribution Width SD 51.1 fl (35.1-43.9); White Blood Count 7.9 K/mm3 (4.4-11.0)
== END | disposition home or self-care (01) ==
PROVIDERS: PCP Family Medicine
DX: R10.32 Left lower quadrant pain (principal)

== ENCOUNTER → 2024-11-18 | Outpatient (CLI) | payer OTHER, SELFPAY ==
[2024-11-18 18:24] LABS: Cholesterol 180 mg/dL (<=200); Free T3 2.7 pg/mL (2.18-3.98); High Density Lipoprotein 42 mg/dL; Low Density Lipoprotein Calc. 113 mg/dL; Triglycerides 124 mg/dL; Very Low Density Lipoprotein 25 mg/dL (5-40); cholesterol:hdl ratio screen 4.26
[2024-11-18 18:26] LABS: Anion Gap 13 (5-15); BUN 11 mg/dL (4-19); BUN/Creat Ratio 13.2 RATIO (10-20); Carbon Dioxide 23.3 mmol/L (21.0-32.0); Chloride 104 mmol/L (98-108); Creatinine, Serum 0.81 mg/dL (0.70-1.20); EST Glomerular Filtration Rate 90 (>60); Glucose 89 mg/dL (70-99); Potassium 4.1 mmol/L (3.3-5.1); Sodium Level 140 mmol/L (133-145)
== END | disposition home or self-care (01) ==
LOC: MFPLAB 16:47
PROVIDERS: PCP Family Medicine; Referring Provider Family Medicine; Visit Provider Family Medicine
DX: E03.9 Hypothyroidism, unspecified (principal); E66.9 Obesity, unspecified
CPT/HCPCS: 36415; 80048; 80061; 84439; 84443; 84481

== ENCOUNTER → 2024-12-22 | Outpatient (CLI) | payer OTHER, SELFPAY ==
--- NOTE | 2024-12-22 16:46 | RAD_ITS ---
EXAM: XR Bilateral Hips With Pelvis When Performed, 2 or 3 Views CLINICAL INDICATION: PAIN TECHNIQUE: Three or four views of the bilateral hips with pelvis when performed. COMPARISON: No relevant prior studies available. FINDINGS: BONES/JOINTS: Mild degenerative change of the hip joints, bilaterally. No acute fracture. No dislocation. SOFT TISSUES: Unremarkable. RAD/Hips B/L min 2 views w/ Pelvis IMPRESSION: Degenerative changes as above. Reading Location: [facility]
--- NOTE | 2024-12-22 16:46 | RAD_ITS ---
EXAM: XR Bilateral Hips With Pelvis When Performed, 2 or 3 Views CLINICAL INDICATION: PAIN TECHNIQUE: Three or four views of the bilateral hips with pelvis when performed. COMPARISON: No relevant prior studies available. FINDINGS: BONES/JOINTS: Mild degenerative change of the hip joints, bilaterally. No acute fracture. No dislocation. SOFT TISSUES: Unremarkable. RAD/Hips B/L min 2 views w/ Pelvis IMPRESSION: Degenerative changes as above. Reading Location: [facility]
== END | disposition home or self-care (01) ==
LOC: MTRAD 16:42
PROVIDERS: PCP Family Medicine; Referring Provider Family Medicine; Visit Provider Family Medicine
DX: M25.551 Pain in right hip (principal)
CPT/HCPCS: 73521

== ENCOUNTER 2024-12-23 10:41 | Emergency (ER) | payer OTHER, SELFPAY ==
[2024-12-23 10:42] VITALS: BP 145/93; PULSE 82; RESP 16; TEMP 36.7; O2SAT 94; BMI 44.0
--- NOTE | 2024-12-23 11:08 | EDS_ITS ---
<Statement entered by Erick Hunt DO - 12/23/24 16:41> Patient was seen and examined with physician sales office assistant Latasha All components of the history and physical confirmed and agreed. History of present illness and physical exam: Patient is a 48-year-old female past medical hypothyroidism, anxiety who presented to the emergency department chief complaint of lightheadedness that occurred while she was at work earlier today. States that she got her job around 8 AM and notes that her job is very physical and states that she took her first break around 9:30 AM and started to feel weak and lightheaded. She states that when she stood up both of her legs felt rubbery and felt like she may pass out so she sat down and therefore she did not do so. She denies any chest pain shortness of breath dizziness during this episode. Per the patient the boss called EMS to brought her here for further evaluation management. States that recently she injured her right hip while at work and took a muscle relaxer latest night as well as meloxicam this morning. Review of systems: Agree with above Physical exam: Agree with above MDM Patient is a 48-year-old female who presented to the emergency department the chief complaint of lightheadedness and near syncope. On the differential diagnose includes but not limited to near syncope, orthostatic hypotension, dehydration, electrolyte abnormality, arrhythmia. Once workup is obtained reviewed she will be reevaluated. Patient CBC reviewed showed no evidence leukocytosis white blood count about 7, he was 12.8, platelet count 213. Patient sodium is normal 141, potassium normal 4.3, creatinine normal at 0.91. Patient test was negative. Patient's EKG reviewed and showed sinus rhythm rate of 83 bpm. Patient on reevaluation is feeling much better she would like to go home at this point in time. She is advised to continue to hydrate orally with plenty of fluids and return with worsening symptoms or any other concerns. She is agreeable to plan all course concerns answered she was discharged home in stable condition. Final impression: Lightheadedness Dehydration Near syncope Disposition: Patient will be discharged home in stable condition Supervising attending attestation: Erick Hunt D.O. HPI History of Present Illness Chief Complaint: Dizziness Narrative Narrative: 48-year-old female with past medical history of hypothyroidism, anxiety presents with lightheadedness that occurred at work. 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 She states the job is very physical and not her first break around 9:30 AM she started to feel weak and lightheaded. When she stood up both legs felt rubbery like she might pass out so she sat down. She had no chest pain, shortness breath, palpitations or syncope. No headache or nausea or vomiting or abdominal pain. No recent black or bloody stools or urinary symptoms. Her boss called EMS who brought her in for evaluation. Patient states a couple days ago she injured her right hip at work and took a muscle relaxer last night and tressa oxicam this morning. [facility] Medical History (Updated 12/23/24 @ 12:00 by ROSANA Velasquez) Respiratory clearance examination, encounter for Loose, teeth Bipolar disorder Blister Hypothyroidism Chronic cough Hoarseness Smoker Pain aggravated by walking Edema Hx of echocardiogram Easy bruising Migraine headache Back pain Injury of head and neck Fatigue Anxiety Depression Nausea Umbilical pain Fibromyalgia Abnormal stress test Chest pain Home Medications ?Medication ?Instructions ?Recorded ?Last Taken ?Type vedicvd-ernaufcztdwta-leapxavw 250 3 tab PO Q6H PRN pa in #1 TAB 05/06/18 Unknown Rx mg-250 mg-65 mg tablet (Excedrin Extra Strength) Held on 10/19/20. Instructions: Resume on 10/23/20. Hold 2 to 3 days after surgery buspirone 7.5 mg tablet 7.5 mg PO BID 08/26/23 Unkno wn History duloxetine 30 mg capsule,delayed 30 mg PO DAILY Unknown History release fluoxetine 20 mg capsule (Prozac) 20 mg PO BID 4 Unknown History furosemide 20 mg tablet 20 mg PO QDAY 08/26/23 Unkno wn History levothyroxine 125 mcg tablet 125 mcg PO QDAY 08/26/23 Unknown History levothyroxine 150 mcg tablet 150 mcg PO QDAY 08/26/23 Unknown History meloxicam 15 mg tablet 15 mg PO QDAY 08/26/23 Unkno wn History norgestimate-ethinyl estradiol 1 tab PO QDAY 08/26/23 Unknown History 0.18mg/0.215mg/0.25mg-0.035mg(28)tablet (Tri-Linyah) oxybutynin chloride 5 mg tablet 5 mg PO QDAY 08/26/23 Unknown History spironolactone 50 mg tablet 50 mg PO DAILY 08/26/23 Un known History (Aldactone) terbinafine HCl 250 mg tablet 250 mg PO QDAY 08/26/23 Unknown History Allergy/AdvReac Type Severity Reaction Status Date / Time No Known Allergies Allergy Verified 12/23/24 10:46 Family History Father Heart disease Hypertension Aunt Heart disease Uncle Heart disease Mother Cancer Surgical History History of umbilical hernia repair (~11/2020) Hx of cardiac catheterization History of colonoscopy History of tubal ligation History of cholecystectomy History of lumpectomy of left breast History of eye surgery Social History Smoking Status: Current every day smoker tobacco type: cigarettes alcohol intake: current details: rare substance use type: does not use caffeine: Yes what type of physical activity do you participate in: none frequency: does not exercise ROS ROS ED ROS Narrative Constitutional: Negative for fever, chills, malaise. CVS: Negative for palpitations, chest pain, syncope. Respiratory: Negative for shortness of breath, cough. GI: Negative for abdominal pain, nausea, vomiting. EXAM Physical Exam Narrative Exam Narrative: CONST: Patient sitting in no acute distress. EYES: Normal inspection. NECK: Normal inspection. RESP: No respiratory distress, CTAB. CVS: Regular rate and rhythm, no murmur, no gallop. ABD: Soft and nontender, no guarding or rebound, nondistended. SKIN: Color normal, no rash, warm, dry, intact. EXTREMITIES: Normal appearance, no pedal edema. NEURO: Alert and answering questions appropriately. PSYCH: Normal affect. Const Vital Signs: 12/23/24 10:42 12/23/24 12:41 Temperature 98.1 F Temperature Source Oral Pulse Rate 82 Pulse Rate [Lying] 78 Pulse Rate [Sitting (for 1 minute prior to obtaining)] 83 Pulse Rate [Standing (for 1 minute prior to obtaining)] 83 Respiratory Rate 16 Blood Pressure 145/93 H Blood Pressure [Lying] 123/77 H Blood Pressure [Sitting (for 1 minute prior to obtaining)] 150/95 H Blood Pressure [Standing (for 1 minute prior to obtaining)] 138/89 H Blood Pressure Mean 110 Blood Pressure Mean [Lying] 92 Blood Pressure Mean [Sitting (for 1 minute prior to obtaining)] 113 Blood Pressure Mean [Standing (for 1 minute prior to obtaining)] 105 Pulse Ox 94 Oxygen Delivery Method Room Air MDM MDM MDM Narrative Medical decision making narrative: Differential includes but not limited to dehydration, orthostatic hypotension, electrolyte derangement, arrhythmia 48-year-old female who was at work for several hours and felt lightheaded and both legs felt weak. No syncope. No chest pain or shortness of breath. She is awake and alert no distress. Vital stable. Overall her exam is benign. Orthostatic vital signs were negative and she was given IV fluids while blood work was obtained. CBC and BMP are unremarkable. negative. Again she has no OCP, SOB, palpitations etc. so I do not think cardiac workup is indicated. After fluids she feels better is ambulatory in the department and comfortable with discharge. I discussed return precautions and she was discharged in stable condition. History & Record Review Discussion w/independent historian: Patient Additional record(s) reviewed:: Prior ED visit and Prior labs Lab Data Attestation: I reviewed the patient's lab results. Labs: Laboratory Results - last 24 hr 12/23/24 11:15 WBC 7.0 RBC 4.28 Hgb 12.8 Hct 40.5 MCV 94.6 MCH 29.9 MCHC 31.6 L RDW Std Deviation 51.7 H RDW Coeff of New 14.8 H Plt Count 213 MPV 10.4 Immature Gran % (Auto) 0.100 Neut % (Auto) 64.5 Lymph % (Auto) 23.4 [place] % (Auto) 7.9 Eos % (Auto) 3.4 Baso % (Auto) 0.7 Absolute Neuts (auto) 4.5 Absolute Lymphs (auto) 1.63 Nucleated RBC % 0 Sodium 141 Potassium 4.3 Chloride 103 Carbon Dioxide 27.2 Anion Gap 11 BUN 13 Creatinine 0.91 Estim Creat Clear Calc 107.36 Est GFR (MDRD) Non-Af 77 BUN/Creatinine Ratio 14.4 Glucose 99 Calcium 9.2 Serum , Qual NEGATIVE EKG Initial EKG: Attestation: I personally reviewed and interpreted this EKG as follows: Interpretation: Sinus Rhythm and No Acute Injury Pattern Comments: Normal sinus rhythm 83 bpm Normal intervals, no acute ischemic changes Discharge Plan Triage Chief Complaint: Dizziness ED Midlevel Provider: Latasha Joe ED Provider: Erick Hunt Dx/Rx/DC Orders Clinical Impression: Lightheadedness Instructions: Dizziness Fainting Causes Prescriptions: No Action Excedrin Extra Strength 250-250-65 mg tablet 3 tab PO Q6H PRN (Reason: pain) Qty: 1 0RF Rx Instructions: 3 tablets in the AM and 2 tablets in the PM levothyroxine 150 mcg tablet 150 mcg PO QDAY oxybutynin chloride 5 mg tablet 5 mg PO QDAY furosemide 20 mg tablet 20 mg PO QDAY norgestimate-ethinyl estradiol [Tri-Linyah] 0.18/0.215/0.25 mg-35 mcg (28) tablet 1 tab PO QDAY buspirone 7.5 mg tablet 7.5 mg PO BID meloxicam 15 mg tablet 15 mg PO QDAY levothyroxine 125 mcg tablet 125 mcg PO QDAY terbinafine HCl 250 mg tablet 250 mg PO QDAY spironolactone [Aldactone] 50 mg tablet 50 mg PO DAILY duloxetine 30 mg capsule,delayed release(DR/EC) 30 mg PO DAILY fluoxetine [Prozac] 20 mg capsule 20 mg PO BID Rx Instructions: administer in the morning and at noon/midday Primary Care Provider: Talon Ag Referrals: Talon Ag MD [Primary Care Provider] - Activity Restrictions/Additional Instructions: All of your blood work and EKG look normal. I suspect you may have been dehydrated. Rest, drink plenty fluids, return if any symptoms worsen. Print Language: Chadian Disposition Disposition: Home, Self Care
[2024-12-23 11:26] LABS: Hematocrit 40.5 % (37-47); Hemoglobin 12.8 g/dL (12.0-15.0); Immature Granulocytes Count 0.010 X10^3/uL (0.0-0.0); Mean Corp Hgb Conc 31.6 g/dL (32-36); Mean Corpuscular Volume 94.6 fL (81-99); Mean Platelet Vol. 10.4 fl (6.2-12.0); NRBC Flagged by Analyzer 0 % (0-5); Platelet Count 213 K/mm3 (150-450); RBC Distribution Width CV 14.8 % (11.6-14.6); RBC Distribution Width SD 51.7 fl (35.1-43.9); Red Blood Count 4.28 M/mm3 (4.2-5.4); White Blood Count 7.0 K/mm3 (4.4-11.0)
[2024-12-23 11:40] LABS: Internal QC Validated? YES +Cl - CLEAR BKGD; Pregnancy, Serum, hCG Quali. NEGATIVE Negative; Record Kit Lot#, Serum Preg. 0000962302
[2024-12-23 11:45] LABS: Anion Gap 11 (5-15); BUN 13 mg/dL (4-19); BUN/Creat Ratio 14.4 RATIO (10-20); Calcium,Total 9.2 mg/dL (7.6-11.0); Carbon Dioxide 27.2 mmol/L (21.0-32.0); Chloride 103 mmol/L (98-108); Estimated Creatinine Clearance 107.36 ml/min (50-250); Glucose 99 mg/dL (70-99); Potassium 4.3 mmol/L (3.3-5.1)
[2024-12-23] MEDS: 0.9% Normal Saline (1000mL) 1,000 ML 999 ML IV (12:05)
[2024-12-23 12:41] VITALS: BP 123/77; BP 135/83; BP 138/89; BP 150/95; PULSE 78; PULSE 83; RESP 16; O2SAT 97
[2024-12-23 13:39] VITALS: BP 131/88; PULSE 71; RESP 16; TEMP 36.8; O2SAT 99
== END 2024-12-23 13:39 | disposition home or self-care (01) ==
PROVIDERS: Physician Assistant; Emergency Provider Emergency Medicine; PCP Family Medicine; Visit Provider Emergency Medicine
DX: R42 Dizziness and giddiness (principal); E86.0 Dehydration; R55 Syncope and collapse; F41.9 Anxiety disorder, unspecified; E03.9 Hypothyroidism, unspecified; Z90.49 Acquired absence of other specified parts of digestive tract; Z98.51 Tubal ligation status; F17.210 Nicotine dependence, cigarettes, uncomplicated; M79.7 Fibromyalgia; F32.A Depression, unspecified
CPT/HCPCS: 80048; 84703; 85025; 93005; 96360; 99285; A4216

== ENCOUNTER → 2025-03-01 | Outpatient (CLI) | payer OTHER, SELFPAY ==
--- OUTSIDE RECORDS SUMMARY | 2025-03-01 07:10 | XMS RPT_ITS | CCD ---
Author Organization [facility] Providers Care Varnisher Apprentice Name Role Phone Rodolfo Sheth Unavailable EVANGELINA INTERIANO Unavailable Unavailable TALON ENCISO Unavailable Unavailable LANDRY RAMIREZ Unavailable Unavailable TALON ENCISO Unavailable Unavailable WICHO SANTOS (QUANTITATIVE SOFTWARE ENGINEER) Unavailable Unavailable WICHO SANTOS (QUANTITATIVE SOFTWARE ENGINEER) Unavailable Unavailable Saloni Marinelli Unavailable Rodolfo Sheth Unavailable Dr. Talon Enciso Primary Care Provider [phone] Talon Enciso Referring Provider Dr. Jaswant Lee Attending Provider Dr. Talon Enciso Primary Care Provider Ancelmo, Dr. Hanley Referring Provider Dr. Lillian Gallo Attending Provider Ancelmo CASILLAS, Dr. Hanley Primary Care Provider [phone] Dr. Talon Enciso MD Attending Provider [phone] Ancelmo CASILLAS, Dr. Hanley Referring Provider [phone] Erick Hunt DO Emergency Provider [phone] Vladimir Gonzalez Attending Unavailable Ancelmo, Talon Primary Care Unavailable Enciso, Talon Referring Unavailable Vladimir Gonzalez Attending Unavailable Ancelmo, Talon Primary Care Unavailable Enciso, Talon Referring Unavailable Erick Hunt Attending Unavailable Enciso, Talon Primary Care Unavailable Enciso, Talon Referring Unavailable Enciso, Talon Attending Unavailable Enciso, Talon Primary Care Unavailable Enciso, Talon Referring Unavailable Enciso, Talon Attending Unavailable Enciso, Talon Primary Care Unavailable Enciso, Talon Primary Care Unavailable Enciso, Talon Referring Unavailable Enciso, Talon Attending Unavailable Enciso, Talon Primary Care Unavailable Enciso, Talon Referring Unavailable Talon Enciso Attending Unavailable McMorrow CHRISTAL, Jw Attending Unavailable Talon Enciso Primary Care Unavailable McMorrow Jw SIEGEL Referring Unavailable Rodolfo Linares Referring Unavailable Rodolfo Linares Attending Unavailable Talon Enciso Primary Care Unavailable Medications Current Medications Medication Drug Class(es) Dates Sig (Normalized) Sig (Original) busPIRone hydrochloride 7.5 mg oral tablet (4 sources) Start: 08-26-2023 take 1 tablet by mouth twice daily Buspirone 7.5 mg tablet Active 7.5 mg PO TWICE A DAY August 26, 2023 12:00am DULoxetine 30 mg delayed release oral capsule (20 sources) Serotonin and Norepinephrine Reuptake Inhibitor Start: 08-26-2023 take 1 capsule by mouth once daily Duloxetine 30 mg capsule,delayed release(DR/EC) Active 30 mg PO DAILY August 26, 2023 12:00am Start: 03-25-2018 End: 05-06-2018 take 1 capsule by mouth once daily Duloxetine (Cymbalta) 30 mg capsule,delayed release(DR/EC) Discontinued 30 mg PO DAILY March 25, 2018 12:00am May 06, 2018 5:11pm Start: 06-12-2016 End: 03-25-2018 take 1 capsule by mouth once daily Duloxetine 20 MG capsule Discontinued 20 mg PO DAILY June 12, 2016 1:00am March 25, 2018 11:22am Start: 06-07-2016 CYMBALTA 30 MG [facility] DULOXETINE HCL [id number] Rodolfo Sheth Norgestimate-Ethinyl Estradiol (4 sources) Progestin, Estrogen Start: 08-26-2023 Norgestimate-Ethinyl Estradiol (Tri-Linyah) 0.18/0.215/0.25 mg-35 mcg (28) tablet Active 1 {tbl} PO daily August 26, 2023 12:00am Start: 08-26-2023 take 1 tablet by josemanuel th once daily Norgestimate-Ethinyl Estradiol (Tri-Linyah) 0.18/0.215/0.25 mg-35 mcg (28) tablet Active 1 TABLET PO daily August 26, 2023 12:00am FLUoxetine 20 mg oral capsule (17 sources) Serotonin Reuptake Inhibitor Start: 03-19-2024 take 1 capsule by mouth twice daily in the morning Fluoxetine (Prozac) 20 mg capsule Active 20 mg PO TWICE A DAY August 26, 2023 12:00am administer in the morning and at noon/midday Start: 06-07-2016 PROZAC 40 MG C APS FLUOXETINE HCL [id number] Rodolfo Sheth Start: 08-11-2015 End: 05-06-2018 take 3 capsules by mouth once daily Fluoxetine 20 MG capsule Discontinued 60 mg PO DAILY August 11, 2015 1:00am May 06, 2018 5:11pm Start: 08-11-2015 End: 05-06-2018 take 60 mg by mouth once daily Fluoxetine Discontinued 60 MG PO DAILY August 11, 2015 1:00am May 06, 2018 5:11pm furosemide 20 mg oral tablet (4 sources) Loop Diuretic Start: 08-26-2023 take 1 tablet by mouth once daily Furosemide 20 mg tablet Active 20 mg PO daily August 26, 2023 12:00am levothyroxine sodium 0.15 mg oral tablet (20 sources) l-Thyroxine Start: 08-26-2023 take 1 tablet by mouth once daily Levothyroxine 125 mcg tablet Active 125 ug PO daily August 26, 2023 12:00am Start: 08-26-2023 take 1 tablet by josemanuel th once daily Levothyroxine 150 mcg tablet Active 150 ug PO daily August 26, 2023 12:00am Start: 10-10-2020 End: 08-26-2023 take 1 tablet by mouth once daily Levothyroxine 75 mcg tablet Discontinued 75 ug PO DAILY October 10, 2020 12:00am August 26, 2023 8:37am Start: 03-25-2018 End: 05-06-2018 take 1 tablet by mouth once daily Levothyroxine 200 mcg tablet Discontinued 200 ug PO DAILY March 25, 2018 12:00am May 06, 2018 5:11pm Start: 06-07-2016 LEVOTHYROXINE SODIUM 125 MCG TABS LEVOTHYROXINE SODIUM [id number] Rodolfo Sheth Start: 08-11-2015 End: 03-25-2018 take 5 tablets by mouth once daily Levothyroxine 25 MCG tablet Discontinued 125 ug PO DAILY August 11, 2015 1:00am March 25, 2018 11:22am Start: 08-11-2015 End: 03-25-2018 take 125 ug by mouth once daily Levothyroxine Discbladei nued 125 MCG PO DAILY August 11, 2015 1:00am March 25, 2018 11:22am meloxicam 15 mg oral tablet (4 sources) Nonsteroidal Anti-inflammatory Drug Start: 08-26-2023 take 1 tablet by mouth once daily Meloxicam 15 mg tablet Active 15 mg PO daily August 26, 2023 12:00am oxybutynin chloride 5 mg oral tablet (4 sources) Cholinergic Muscarinic Antagonist Start: 08-26-2023 take 1 tablet by mouth once daily Oxybutynin Chloride 5 mg tablet Active 5 mg PO daily August 26, 2023 12:00am spironolactone 50 mg oral tablet (4 sources) Aldosterone Antagonist Start: 08-26-2023 take 1 tablet by mouth once daily Spironolactone (Aldactone) 50 mg tablet Active 50 mg PO DAILY August 26, 2023 12:00am terbinafine 250 mg oral tablet (4 sources) Allylamine Antifungal Start: 08-26-2023 take 1 tablet by mouth once daily Terbinafine Hcl 250 mg tablet Active 250 mg PO daily August 26, 2023 12:00am Completed/Discontinued Medications Medication Drug Class(es) Dates Sig (Normalized) Sig (Original) acetaminophen 250 mg / aspirin 250 mg / caffeine 65 mg oral tablet (10 sources) Platelet Aggregation Inhibitor, Nonsteroidal Anti-inflammatory Drug, Central Nervous System Stimulant, Methylxanthine Start: 05-06-2018 take 3 tablets by mouth every six hours as needed for pain, then take 2 tablets by mouth in the evening as needed for pain Aspirin-Acetaminoph en-Caffeine (Excedrin Extra Strength) 250-250-65 mg tablet Active 3 {tbl} PO EVERY 6 HOURS as needed for pain 1 0 May 06, 2018 1:00am On Hold: Resume on 10/23/20. Hold 2 to 3 days after surgery 3 tablets in the AM and 2 tablets in the PM acetaminophen 325 mg / oxyCODONE hydrochloride 5 mg oral tablet (10 sources) Opioid Agonist Start: 10-19-2020 End: 11-02-2020 Oxycodone-Acetamino phen (Percocet) 5-325 mg tablet Discontinued 1 - 2 {tbl} PO EVERY 6 HOURS as needed for pain 14 3 0 October 19, 2020 November 02, 2020 8:53am Postoperative pain Other acute postprocedural pain aspirin 81 mg chewable tablet (10 sources) Platelet Aggregation Inhibitor, Nonsteroidal Anti-inflammatory Drug Start: 03-25-2018 End: 05-06-2018 take 1 tablet by mouth once daily Aspirin 81 mg tablet,chewable Discontinued 81 mg PO DAILY 30 3 March 25, 2018 12:00am May 06, 2018 5:11pm Problems Active Problems Problem Classification Problem Date Documented Date Episodic/Chronic Abdominal hernia (20 sources) Ventral incisional hernia; Translations: [Incisional hernia without obstruction or gangrene] 11-02-2020 Episodic Anxiety disorders (10 sources) Anxiety; Translations: [Anxiety disorder, unspecified] 10-18-2020 Chronic Comment on above: no med Conditions associated with dizziness or vertigo (3 sources) Lightheadedness; Translations: [Dizziness and giddiness] Onset: 12-28-2024 12-23-2024 Episodic Joint disorders and dislocations; trauma-related (3 sources) Derangement of knee; Translations: [Unspecified internal derangement of right knee] Onset: 06-07-2016 06-17-2016 Chronic Malaise and fatigue (10 sources) Fatigue; Translations: [Other fatigue] 10-10-2020 Episodic Mood disorders (10 sources) Depressive disorder; Translations: [Depression] 10-18-2020 Chronic Comment on above: no med Nausea and vomiting (10 sources) Nausea; Translations: [Nausea] 10-10-2020 Episodic Nonmalignant breast conditions (3 sources) Discharge from nipple; Translations: [Nipple discharge] 09-05-2023 Episodic Comment on above: Left purulent when s he notices that she has swelling near the nipple and expresses Nonspecific chest pain (10 sources) Chest pain; Translations: [Chest pain, unspecified] 10-18-2020 Episodic Comment on above: had workup 2017 and saw supervisor weaving/pain related to anxiety only Other female genital disorders (1 source) Abnormal uterine and vaginal bleeding, unspecified; Translations: [Abnormal uterine and vaginal bleeding, unspecified] Onset: 02-01-2024 Chronic Other non-traumatic joint disorders (1 source) Pain in right hip; Translations: [Pain in right hip] Onset: 12-27-2024 Episodic Residual codes; unclassified (10 sources) History of colonoscopy; Translations: [Other specified postprocedural states] 10-10-2020 Episodic Thyroid disorders (1 source) Hypothyroidism, unspecified; Translations: [Hypothyroidism, unspecified] Onset: 11-24-2024 Chronic Unclassified (11 sources) Encounter for screening mammogram for malignant neoplasm of breast; Translations: [Cardiovascular stress test abnormal] Onset: 04-07-2017 10-18-2020 Episodic Comment on above: 2018 Past or Other Problems Problem Classification Problem Date Documented Da te Episodic/Chronic Abdominal pain (11 sources) Umbilical pain; Translations: [Periumbilical pain] Onset: 07-14-2024 10-10-2020 Episodic Joint disorders and dislocations; trauma-related (3 sources) [...] left shoulder] Onset: 07-22-2016 08-12-2016 Episodic Other connective tissue disease (1 source) Pain in unspecified foot; Translations: [Pain in unspecified foot] Onset: 02-13-2024 Episodic Other non-traumatic joint disorders (2 sources) [...] shoulder, initial encounter] Onset: 07-22-2016 08-12-2016 Episodic Results Test Name Value Interpretation Reference Range Facility Absolute lymphocyte countOrd ered By: Latasha Heath on 12-23-2024 Lymphocytes Auto (Unsp spec) [#/Vol] 1.63 10*3/uL 0.83-4.51 [facility] Absolute neutrophil countOrd ered By: Latashasofie Joe on 12-23-2024 Neutrophils (Bld) [#/Vol] 4.5 10*3/uL 2.0-7.7 [facility] Anion gap in Serum or Plasma Ordered By: Latasha Joe on 12-23-2024 Anion gap [Moles/Vol] 11 mmol/L 5- [facility] Automated lymphocyte count a s percentage of total leukocytesOrdered By: Latasha Joe on 12-23-2024 Lymphocytes/100 WBC Auto (Unsp spec) 23.4 % - [facility] BUN/creatinine ratioOrdered By: Latasha Joe on 12-23-2024 Urea nitrogen/Creatinine [Mass ratio] 14.4 mg/mg - [facility] Basic Metabolic Profile (BMP )on 12-23-2024 BUN/CRE 14.4 RATIO Normal - [facility] Comment on above: Performed By: #### L 700.6800, L500.2500, L100.0100 ####[facility] [address] [place], [address] Calcium [Mass/Vol] 9.2 mg/dL Normal 7.6-11.0 [facility] Comment on above: Performed By: #### L 700.6800, L500.2500, L100.0100 ####[facility] [address] [place], [address] Chloride [Moles/Vol] 103 mmol/L Normal 98-108 [facility] Comment on above: Performed By: #### L 700.6800, L500.2500, L100.0100 ####[facility] [address] [place], [address] CO2 [Moles/Vol] 27.2 mmol/L Normal 21.0-32.0 [facility] Comment on above: Performed By: #### L 700.6800, L500.2500, L100.0100 ####[facility] [address] [place], [address] Creatinine [Mass/Vol] 0.91 mg/dL Normal 0.70-1.20 [facility] Comment on above: Performed By: #### L 700.6800, L500.2500, L100.0100 ####[facility] [address] [place], [address] ECRCL 107.36 ml/min Normal 50-250 [facility] Comment on above: Performed By: #### L 700.6800, L500.2500, L100.0100 ####[facility] [address] [place], [address] GAP 11 Normal 5-15 [facility] Comment on above: Performed By: #### L 700.6800, L500.2500, L100.0100 ####[facility] [address] [place], [address] GFR/1.73 sq M.predicted among non-blacks MDRD (S/P/Bld) [Vol rate/Area] 77 mL/min/{1.73_m2} Normal >60 [facility] Comment on above: Result Comment: mL/m in/1.73m2 CKD-EPI Creatinine Equation (2020) Performed By: #### L 700.6800, L500.2500, L100.0100 ####[facility] [address] [place], [address] Glucose [Mass/Vol] 99 mg/dL Normal 70-99 [facility] Comment on above: Performed By: #### L 700.6800, L500.2500, L100.0100 ####[facility] [address] [place], [address] Potassium [Moles/Vol] 4.3 mmol/L Normal 3.3-5.1 [facility] Comment on above: Performed By: #### L 700.6800, L500.2500, L100.0100 ####[facility] [address] [place], [address] Sodium [Moles/Vol] 141 mmol/L Normal 133-145 [facility] Comment on above: Performed By: #### L 700.6800, L500.2500, L100.0100 ####[facility] [address] [place], [address] Urea nitrogen [Mass/Vol] 13 mg/dL Normal 4-19 [facility] Comment on above: Performed By: #### L 700.6800, L500.2500, L100.0100 ####[facility] [address] [place], [address] Basophil percentageOrdered B y: Latasha Heath on 12-23-2024 Basophils/100 WBC (Bld) 0.7 % 0-1 [facility] CBC W/Diff, Automatedon 12-07 Absolute Lymph 1.63 X10 3/uL Normal 0.83-4.51 [facility] Comment on above: Performed By: #### L 700.6800, L500.2500, L100.0100 ####[facility] [address] [place], [address] Absolute Neut 4.5 X10 3/uL Normal 2.0-7.7 [facility] Comment on above: Performed By: #### L 700.6800, L500.2500, L100.0100 ####[facility] [address] [place], [address] Basophils/100 WBC (Bld) 0.7 % Normal 0-1 [facility] Comment on above: Performed By: #### L 700.6800, L500.2500, L100.0100 ####[facility] [address] [place], [address] Eosinophils/100 WBC (Bld) 3.4 % Normal 0-5 [facility] Comment on above: Performed By: #### L 700.6800, L500.2500, L100.0100 ####[facility] [address] [place], [address] Erythrocyte distribution width (RBC) [Ratio] 14.8 % High 11.6-14.6 [facility] Comment on above: Performed By: #### L 700.6800, L500.2500, L100.0100 ####[facility] [address] [place], [address] Hematocrit (Bld) [Volume fraction] 40.5 % Normal 37-47 [facility] Comment on above: Performed By: #### L 700.6800, L500.2500, L100.0100 ####[facility] [address] [place], [address] Hemoglobin (Bld) [Mass/Vol] 12.8 g/dL Normal 12.0-15.0 [facility] Comment on above: Performed By: #### L 700.6800, L500.2500, L100.0100 ####[facility] [address] [place], [address] IG% 0.100 Normal 0.0-0.9 [facility] Comment on above: Result Comment: IG% - Immature Granulocytes (promyelocytes, myelocytes and metamyelocytes) > 1% indicates that a LEFT SHIFT is Present. Performed By: #### L 700.6800, L500.2500, L100.0100 ####[facility] [address] [place], [address] Lymphocytes/100 WBC (Bld) 23.4 % Normal 19-41 [facility] Comment on above: Performed By: #### L 700.6800, L500.2500, L100.0100 ####[facility] [address] [place], [address] MCH (RBC) [Entitic mass] 29.9 pg Normal 27.0-32.0 [facility] Comment on above: Performed By: #### L 700.6800, L500.2500, L100.0100 ####[facility] [address] [place], [address] MCHC (RBC) [Mass/Vol] 31.6 g/dL Low 32-36 [facility] Comment on above: Performed By: #### L 700.6800, L500.2500, L100.0100 ####[facility] [address] [place], [address] MCV (RBC) [Entitic vol] 94.6 fL Normal 81-99 [facility] Comment on above: Performed By: #### L 700.6800, L500.2500, L100.0100 ####[facility] [address] [place], [address] Monocytes/100 WBC (Bld) 7.9 % Normal 0-10 [facility] Comment on above: Performed By: #### L 700.6800, L500.2500, L100.0100 ####[facility] [address] [place], [address] Neutrophils/100 WBC (Bld) 64.5 % Normal 47-70 [facility] Comment on above: Performed By: #### L 700.6800, L500.2500, L100.0100 ####[facility] [address] [place], [address] Nucleated RBC (Bld) [#/Vol] 0 10*3/uL Normal 0-5 [facility] Comment on above: Performed By: #### L 700.6800, L500.2500, L100.0100 ####[facility] [address] [place], [address] Platelet mean volume (Bld) [Entitic vol] 10.4 fL Normal 6.2-12.0 [facility] Comment on above: Performed By: #### L 700.6800, L500.2500, L100.0100 ####[facility] [address] [place], [address] Platelets (Bld) [#/Vol] 213 10*3/uL Normal 150-450 [facility] Comment on above: Performed By: #### L 700.6800, L500.2500, L100.0100 ####[facility] [address] [place], [address] RBC (Bld) [#/Vol] 4.28 10*6/uL Normal 4.2-5.4 [facility] Comment on above: Performed By: #### L 700.6800, L500.2500, L100.0100 ####[facility] [address] [place], [address] RDW SD 51.7 fl High 35.1-43.9 [facility] Comment on above: Performed By: #### L 700.6800, L500.2500, L100.0100 ####[facility] [address] [place], [address] WBC (Bld) [#/Vol] 7.0 10*3/uL Normal 4.4-11.0 [facility] Comment on above: Performed By: #### L 700.6800, L500.2500, L100.0100 ####[facility] [address] [place], [address] Carbon dioxide, total [Moles /volume] in Central venous bloodOrdered By: Latasha Joe on 12-23-2024 CO2 [Moles/Vol] 27.2 mmol/L 21.0-32.0 [facility] Chloride assayOrdered By: Julia Joe on 12-23-2024 Chloride [Moles/Vol] 103 mmol/L 98-108 [facility] Emergency Department Summary on 12-23-2024 Emergency Department Summary [facility] Medical Records Department [address] [place] [address] Emergency Department Summary 12/23/24 MR#: [id number] Acct: [id number] Name: SO ALDRIDGE Rep #: [id number] : 1975 48 From: Latasha WAYNE PCP: Dr. Talon Enciso MD Status:DEP ER Location: ED Patient was seen and examined with physician rehab assistant Latasha All components of the history and physical confirmed and agreed. History of present illness and physical exam: Patient is a 48-year-old female past medical hypothyroidism, anxiety who presented to the emergency department chief complaint of lightheadedness that occurred while she was at work earlier today. States that she got her job around 8 AM and notes that her job is very physical and states that she took her first break around 9:30 AM and started to feel weak and lightheaded. She states that when she stood up both of her legs felt rubbery and felt like she may pass out so she sat down and therefore she did not do so. She denies any chest pain shortness of breath dizziness during this episode. Per the patient the boss called EMS to brought her here for further evaluation management. States that recently she injured her right hip while at work and took a muscle relaxer latest night as well as meloxicam this morning. Review of systems: Agree with above Physical exam: Agree with above MDM Patient is a 48-year-old female who presented to the emergency department the chief complaint of lightheadedness and near syncope. On the differential diagnose includes but not limited to near syncope, orthostatic hypotension, dehydration, electrolyte abnormality, arrhythmia. Once workup is obtained reviewed she will be reevaluated. Patient CBC reviewed showed no evidence leukocytosis white blood count about 7, he was 12.8, platelet count 213. Patient sodium is normal 141, potassium normal 4.3, creatinine normal at 0.91. Patient test was negative. Patient's EKG reviewed and showed sinus rhythm rate of 83 bpm. Patient on reevaluation is feeling much better she would like to go home at this point in time. She is advised to continue to hydrate orally with plenty of fluids and return with worsening symptoms or any other concerns. She is agreeable to plan all course concerns answered she was discharged home in stable condition. Final impression: Lightheadedness Dehydration Near syncope Disposition: Patient will be discharged home in stable condition Supervising attending attestation: Erick GARCIA History of Present Illness Chief Complaint: Dizziness Narrative Narrative: 48-year-old female with past medical history of hypothyroidism, anxiety presents with lightheadedness that occurred at work. 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 She states the job is very physical and not her first break around 9:30 AM she started to feel weak and lightheaded. When she stood up both legs felt rubbery like she might pass out so she sat down. She had no chest pain, shortness breath, palpitations or syncope. No headache or nausea or vomiting or abdominal pain. No recent black or bloody stools or urinary symptoms. Her boss called EMS who brought her in for evaluation. Patient states a couple days ago she injured her right hip at work and took a muscle relaxer last night and meloxicam this morning. [facility] Medical History (Updated 12/23/24 @ 12:00 by ROSANA Velasquez) Respiratory clearance examination, encounter for Loose, teeth Bipolar disorder Blister Hypothyroidism Chronic cough Hoarseness Smoker Pain aggravated by walking Edema Hx of echocardiogram Easy bruising Migraine headache Back pain Injury of head and neck Fatigue Anxiety Depression Nausea Umbilical pain Fibromyalgia Abnormal stress test Chest pain Home Medications ???Medication ???Instructions ???Recorded ???Last Taken ???Type rexvbgp-aeixtpzunvkxv-oee feine 250 3 tab PO Q6H PRN pain #1 TAB Unknown Rx mg-250 mg-65 mg tablet (Excedrin Extra Strength) Held on 10/19/20. Instructions: Resume on 10/23/20. Hold 2 to 3 days after surgery buspirone 7.5 mg tablet 7.5 mg PO BID 08/26/23 Unknown His tory duloxetine 30 mg capsule,delayed 30 mg PO DAILY 08/26/23 Unknown Hi story release fluoxetine 20 mg capsule (Prozac) 20 mg PO BID 08/26/23 Unknown His tory furosemide 20 mg tablet 20 mg PO QDAY 08/26/23 Unknown His tory levothyroxine 125 mcg tablet 125 mcg PO QDAY 08/26/23 Unknown H istory levothyroxine 150 mcg tablet 150 mcg PO QDAY 08/26/23 Unknown H istory meloxicam 15 mg tablet 15 mg PO QDAY 08/26/23 Unknown His tory norgestimate-ethinyl estradiol 1 tab PO QDAY 08/26/23 Unknown His tory 0.18mg/0.215mg/0.25mg-0.0 35mg(28)tablet (Tri-Linyah) oxybutynin chloride 5 mg tablet 5 mg PO QDAY (more content not included)... Normal [facility] Eosinophil percentageOrdered By: Latasha Joe on 12-23-2024 Eosinophils/100 WBC (Bld) 3.4 % 0-5 [facility] Erythrocyte distribution wid th ratioOrdered By: Latasha Joe on 12-23-2024 Erythrocyte distribution width (RBC) [Ratio] 14.8 % High 11.6-14.6 [facility] Erythrocyte distribution wid th standard deviationOrdered By: Latasha Joe on 12-23-2024 Erythrocyte distribution width (RBC) [Ratio] 51.7 fl High 35.1-43.9 [facility] Glomerular filtration rate ( GFR) estimation/1.73 sq m using serum, plasma, or whole bOrdered By: Latasha Joe on 12-23-2024 GFR/1.73 sq M.predicted among non-blacks MDRD (S/P/Bld) [Vol rate/Area] 77 mL/min/{1.73_m2} >60 [facility] Comment on above: mL/min/1.73m2 CKD-EP I Creatinine Equation (2020) Hematocrit Auto (Bld) [Volum e fraction]Ordered By: Latasha Joe on 12-23-2024 Hematocrit (Bld) [Volume fraction] 40.5 % 37-47 [facility] Hemoglobin measurementOrdere d By: Latasha Joe on 12-23-2024 Hemoglobin (Bld) [Mass/Vol] 12.8 g/dL 12.0-15.0 [facility] Immature granulocytes/100 WB C Auto (Bld)Ordered By: Latasha Joe on 12-23-2024 Immature granulocytes/100 WBC (Bld) 0.100 % 0.0-0.9 [facility] Comment on above: IG% - Immature Granu locytes (promyelocytes, myelocytes and metamyelocytes) > 1% indicates that a LEFT SHIFT is Present. MCV (mean corpuscular volume ) determinationOrdered By: Latasha Joe on 12-23-2024 MCV (RBC) [Entitic vol] 94.6 fL 81-99 [facility] Mean corpuscular hemoglobin (MCH) determinationOrdered By: Latasha Joe on 12-23-2024 MCH (RBC) [Entitic mass] 29.9 pg 27.0-32.0 [facility] Mean corpuscular hemoglobin concentration (MCHC) determinationOrdered By: Latasha Joe on 12-23-2024 MCHC (RBC) [Mass/Vol] 31.6 g/dL Low 32-36 [facility] Mean platelet volume determi nationOrdered By: Latasha Joe on 12-23-2024 Platelet mean volume (Bld) [Entitic vol] 10.4 fL 6.2-12.0 [facility] Monocyte percentageOrdered B y: Latasha Joe on 12-23-2024 Monocytes/100 WBC (Bld) 7.9 % 0-10 [facility] Neutrophil percentageOrdered By: Latasha Joe on 12-23-2024 Neutrophils/100 WBC (Bld) 64.5 % 47-70 [facility] Nucleated red blood cell per centageOrdered By: Latasha Joe on 12-23-2024 Nucleated RBC/100 WBC (Bld) [Ratio] 0 % 0-5 [facility] Platelet countOrdered By: Julia Joe on 12-23-2024 Platelets (Bld) [#/Vol] 213 10*3/uL 150-450 [facility] Potassium measurement (mass/ volume)Ordered By: Latasha Joe on 12-23-2024 Potassium (Unsp spec) [Mass/Vol] 4.3 mmol/L 3.3-5.1 [facility] ,Serum,hCG Quali.on 12-23-2024 HCG, SERUM QUAL Negative Normal [facility] Comment on above: Performed By: #### L 700.6800, L500.2500, L100.0100 ####[facility] [id number] [place], [address] RBC Auto (Bld) [#/Vol]Ordere d By: Latasha Joe on 12-23-2024 RBC (Bld) [#/Vol] 4.28 10*6/uL 4.2-5.4 [facility] Serum beta-hCG test, qualita tiveOrdered By: Latasha Joe on 12-23-2024 Beta HCG ( test) Ql Negative [facility] Serum creatinine measurement (mass/volume)Ordered By: Latasha Joe on 12-23-2024 Creatinine [Mass/Vol] 0.91 mg/dL 0.70-1.20 [facility] Serum glucose measurement (m ass/volume)Ordered By: Latasha Joe on 12-23-2024 Glucose [Mass/Vol] 99 mg/dL 70-99 [facility] Serum or plasma calcium danilo urement (mass/volume)Ordered By: Latasha Joe on 12-23-2024 Calcium [Mass/Vol] 9.2 mg/dL 7.6-11.0 [facility] Serum or plasma urea nitroge n measurement (mass/volume)Ordered By: Latasha Joe on 12-23-2024 Urea nitrogen [Mass/Vol] 13 mg/dL 4-19 [facility] Sodium levelOrdered By: Latasha Joe on 12-23-2024 Sodium [Moles/Vol] 141 mmol/L 133-145 [facility] White blood cell (WBC) count Ordered By: Latasha Joe on 12-23-2024 WBC (Bld) [#/Vol] 7.0 10*3/uL 4.4-11.0 [facility] Hips B/L min 2 views w/ Pelv mariel 12-22-2024 Hips B/L min 2 views w/ Pelvis [facility] [address] [place], [place] [address] Hips B/L min 2 views w/ Pelvis MR#: [id number] Acct: [id number] Name: SO ALDRIDGE Rep #: [id number] : 1975 F 48 From: Parminder Christianson MD PCP: Dr. Talon Enciso MD Status: REG CLI Study: Hips B/L min 2 views w/ Pelvis Date of Exam: 0 12/22/24 Exam# [id number] Ordering Dr: Talon Enciso MD EXAM: XR Bilateral Hips With Pelvis When Performed, 2 or 3 Views CLINICAL INDICATION: PAIN TECHNIQUE: Three or four views of the bilateral hips with pelvis when performed. COMPARISON: No relevant prior studies available. FINDINGS: BONES/JOINTS: Mild degenerative change of the hip joints, bilaterally. No acute fracture. No dislocation. SOFT TISSUES: Unremarkable. RAD/Hips B/L min 2 views w/ Pelvis IMPRESSION: Degenerative changes as above. Reading Location: [facility] CC: Dr. Talon Enciso MD Clothing Pattern Preparer: Signed Normal [facility] Anion gap in Serum or Plasma Ordered By: Talon Enciso on 11-18-2024 Anion gap [Moles/Vol] 13 mmol/L - [facility] BUN/creatinine ratioOrdered By: Talon Enciso on 11-18-2024 Urea nitrogen/Creatinine [Mass ratio] 13.2 mg/mg - [facility] Basic Metabolic Profile (BMP )on 11-18-2024 BUN/CRE 13.2 RATIO Normal - [facility] Comment on above: Performed By: #### L 506.0400, L501.9520, L501.22233, L500.4100, L500.2500 #### [facility] [address] [place], [address] Calcium [Mass/Vol] 9.0 mg/dL Normal 7.6-11.0 [facility] Comment on above: Performed By: #### L 506.0400, L501.9520, L501.76377, L500.4100, L500.2500 #### [facility] [address] [place], [address] Chloride [Moles/Vol] 104 mmol/L Normal 98-108 [facility] Comment on above: Performed By: #### L 506.0400, L501.9520, L501.24131, L500.4100, L500.2500 #### [facility] [address] [place], [address] CO2 [Moles/Vol] 23.3 mmol/L Normal 21.0-32.0 [facility] Comment on above: Performed By: #### L 506.0400, L501.9520, L501.53453, L500.4100, L500.2500 #### [facility] [address] [place], [address] Creatinine [Mass/Vol] 0.81 mg/dL Normal 0.70-1.20 [facility] Comment on above: Performed By: #### L 506.0400, L501.9520, L501.24448, L500.4100, L500.2500 #### [facility] [address] [place], [address] GAP 13 Normal 5-15 [facility] Comment on above: Performed By: #### L 506.0400, L501.9520, L501.39306, L500.4100, L500.2500 #### [facility] [address] [place], [address] GFR/1.73 sq M.predicted among non-blacks MDRD (S/P/Bld) [Vol rate/Area] 90 mL/min/{1.73_m2} Normal >60 [facility] Comment on above: Result Comment: mL/m in/1.73m2 CKD-EPI Creatinine Equation (2020) Performed By: #### L 506.0400, L501.9520, L501.60167, L500.4100, L500.2500 #### [facility] [address] [place], [address] Glucose [Mass/Vol] 89 mg/dL Normal 70-99 [facility] Comment on above: Performed By: #### L 506.0400, L501.9520, L501.38227, L500.4100, L500.2500 #### [facility] [address] [place], [address] Potassium [Moles/Vol] 4.1 mmol/L Normal 3.3-5.1 [facility] Comment on above: Result Comment: Hemo lysis present, Results??could be affected. ?? Performed By: #### L 506.0400, L501.9520, L501.94217, L500.4100, L500.2500 #### [facility] [address] [place], [address] Sodium [Moles/Vol] 140 mmol/L Normal 133-145 [facility] Comment on above: Performed By: #### L 506.0400, L501.9520, L501.77154, L500.4100, L500.2500 #### [facility] [address] [place], [address] Urea nitrogen [Mass/Vol] 11 mg/dL Normal 4-19 [facility] Comment on above: Performed By: #### L 506.0400, L501.9520, L501.15032, L500.4100, L500.2500 #### [facility] [address] [place], [address] Calculated very low density lipoprotein (VLDL) cholesterol measurementOrdered By: Talon Enciso on 11-18-2024 Calculated very low density lipoprotein (VLDL) cholesterol measurement 25 mg/dL 5-40 [facility] Carbon dioxide, total [Moles /volume] in Central venous bloodOrdered By: Talon Enciso on 11-18-2024 CO2 [Moles/Vol] 23.3 mmol/L 21.0-32.0 [facility] Chloride assayOrdered By: Rosana Enciso on 11-18-2024 Chloride [Moles/Vol] 104 mmol/L 98-108 [facility] Free T3on 11-18-2024 Free T3 [Mass/Vol] 2.7 pg/mL Normal 2.18-3.98 [facility] Comment on above: Performed By: #### L 506.0400, L501.9520, L501.41839, L500.4100, L500.2500 #### [facility] [address] [place], [place], [id number] Free O9Rvlntpr By: Talon price on 11-18-2024 Free T3 [Mass/Vol] 2.7 pg/mL 2.18-3.98 [facility] Glomerular filtration rate ( GFR) estimation/1.73 sq m using serum, plasma, or whole bOrdered By: Talon Enciso on 11-18-2024 GFR/1.73 sq M.predicted among non-blacks MDRD (S/P/Bld) [Vol rate/Area] 90 mL/min/{1.73_m2} >60 [facility] Comment on above: mL/min/1.73m2 CKD-EP I Creatinine Equation (2020) LDL calc ser/plasOrdered By: Talon Enciso on 11-18-2024 Cholesterol in LDL [Mass/Vol] 113 mg/dL [facility] Comment on above: Tewdmnyjku=963-437 m g/dL & Higher Qvwf=528 mg/dL or greater Lipid Profileon 11-18-2024 CHOL:HDL 4.26 Normal [facility] Comment on above: Performed By: #### L 506.0400, L501.9520, L501.16861, L500.4100, L500.2500 #### [facility] [address] [place], [address] Cholesterol [Mass/Vol] 180 mg/dL Normal <=200 [facility] Comment on above: Result Comment: Chol esterol level, Desirable <200 mg/dL Borderline high cholesterol 200-239 mg/dL High cholesterol >=240 mg/dL Recommendations of the NCEP Adult Treatment Panel for the following risk-cutoff thresholds for the [place] population. Performed By: #### L 506.0400, L501.9520, L501.76155, L500.4100, L500.2500 #### [facility] [address] [place], [address] Cholesterol in HDL [Mass/Vol] 42 mg/dL Normal [facility] Comment on above: Result Comment: Lisa onal Cholesterol Education Program (NCEP) guidelines: <40 mg/dL: Low HDL-cholesterol (major risk factor for CHD) >= 60 mg/dL: High HDL-cholesterol (negative risk factor for CHD) HDL-cholesterol is affected by a number of factors, e.g. smoking, exercise, hormones, sex and age. Performed By: #### L 506.0400, L501.9520, L501.79481, L500.4100, L500.2500 #### [facility] [address] [place], [address] Cholesterol in LDL [Mass/Vol] 113 mg/dL Normal [facility] Comment on above: Result Comment: Bord iktszz=826-378 mg/dL Higher Etqi=278 mg/dL or greater Performed By: #### L 506.0400, L501.9520, L501.00237, L500.4100, L500.2500 #### [facility] [address] [place], [address] Cholesterol in VLDL [Mass/Vol] 25 mg/dL Normal 5-40 [facility] Comment on above: Performed By: #### L 506.0400, L501.9520, L501.56309, L500.4100, L500.2500 #### [facility] [address] [place], [address] Triglyceride [Mass/Vol] 124 mg/dL Normal [facility] Comment on above: Result Comment: The drugs N-Acetylcysteine and Metamizole may falsely depress this assay. Normal range: <150 mg/dL Borderline High: 150-199 mg/dL High: 200-499 mg/dL Very High: >500 mg/dL Performed By: #### L 506.0400, L501.9553, L501.99626, L500.4100, L500.2500 #### [facility] [address] [place], [address] Potassium measurement (mass/ volume)Ordered By: Talon Enciso on 11-18-2024 Potassium (Unsp spec) [Mass/Vol] 4.1 mmol/L 3.3-5.1 [facility] Comment on above: Hemolysis present, R esults could be affected. Screening total cholesterol/ high density lipoprotein (HDL) cholesterol ratioOrdered By: Talon Enciso on 11-18-2024 Cholesterol.total/Chol esterol in HDL [Mass ratio] 4.26 {ratio} [facility] Serum creatinine measurement (mass/volume)Ordered By: Talon Enciso on 11-18-2024 Creatinine [Mass/Vol] 0.81 mg/dL 0.70-1.20 [facility] Serum glucose measurement (m ass/volume)Ordered By: Talon Enciso on 11-18-2024 Glucose [Mass/Vol] 89 mg/dL 70-99 [facility] Serum or plasma calcium danilo urement (mass/volume)Ordered By: Talon Enciso on 11-18-2024 Calcium [Mass/Vol] 9.0 mg/dL 7.6-11.0 [facility] Serum or plasma cholesterol in HDL measurement (mass/volume)Ordered By: Talon Enciso on 11-18-2024 Cholesterol in HDL [Mass/Vol] 42 mg/dL >40 [facility] Comment on above: National Cholesterol Education Program (NCEP) guidelines:<40 mg/dL: Low HDL-cholesterol (major risk factor for CHD)>= 60 mg/dL: High HDL-cholesterol (negative risk factor for CHD)HDL-cholesterol is affected by a number of factors, e.g. smoking, exercise, hormones, sex and age. Serum or plasma cholesterol measurement (mass/volume)Ordered By: Talon Enciso on 11-18-2024 Cholesterol [Mass/Vol] 180 mg/dL <201 [facility] Comment on above: Cholesterol level, D esirable <200 mg/dLBorderline high cholesterol 200-239 mg/dLHigh cholesterol >=240 mg/dLRecommendations of the NCEP Adult Treatment Panel for the following risk-cutoff thresholds for the [place] population. Serum or plasma urea nitroge n measurement (mass/volume)Ordered By: Talon Enciso on 11-18-2024 Urea nitrogen [Mass/Vol] 11 mg/dL 4-19 [facility] Sodium levelOrdered By: Talon Enciso on 11-18-2024 Sodium [Moles/Vol] 140 mmol/L 133-145 [facility] T4 Free Directon 11-18-2024 T4 FREE DIRECT 0.50 ng/dL Low 0.76-1.46 [facility] Comment on above: Performed By: #### L 506.0400, L501.9520, L501.54031, L500.4100, L500.2500 #### [facility] [address] [place], [place], [id number] T4 freeOrdered By: Talon price on 11-18-2024 Free T4 [Mass/Vol] 0.50 ng/dL Low 0.76-1.46 [facility] TSH DL <= 0.005 mIU/L QnOrde red By: Talon Enciso on 11-18-2024 TSH Qn 22.000 uIU/mL High 0.300-4.20 0 [facility] Thyroid Stim Hormone (TSH)on 11-18-2024 TSH 22.000 uIU/mL High 0.300-4.20 0 [facility] Comment on above: Performed By: #### L 506.0400, L501.9520, L501.04676, L500.4100, L500.2500 #### [facility] [address] [place], [place], [id number] Triglycerides measurementOrd ered By: Talon Enciso on 11-18-2024 Triglyceride [Mass/Vol] 124 mg/dL <199 [facility] Comment on above: The drugs N-Acetylcy steine and Metamizole may falsely depress this assay. Normal range: <150 mg/dLBorderline High: 150-199 mg/dLHigh: 200-499 mg/dLVery High: >500 mg/dL Abdomen Single Viewon 2024 Abdomen Single View [facility] [address] [place], [place] [address] Abdomen Single View MR#: [id number] Acct: [id number] Name: OS ALDRIDGE Rep #: [id number] : 1975 F 48 From: Kathy Otto MD PCP: Dr. Talon Enciso MD Status: REG CLI Study: Abdomen Single View Date of Exam: 06/22/24 Exam# [id number] Ordering Dr: Jw Flowers NP [employer] -C 266:[id number] INDICATION: ABDOMINAL PAIN EXAMINATION/TECHNIQUE: X-RAY - XR Abdomen 1 View COMPARISON: CT dated November 27, 2018 FINDINGS: BOWEL GAS PATTERN: Non-obstructive. No bowel or stomach distention. FREE AIR: Not assessed on a single supine view. ORGANOMEGALY: Not seen. CALCIFICATIONS: No abnormal calcifications observed. LOWER CHEST: No acute pathology. BONES AND SOFT TISSUES: No acute pathology. There are surgical clips within the right upper quadrant consistent with prior cholecystectomy. There are tubal ligation clips in place. RAD/Abdomen Single View IMPRESSION: Nonspecific bowel gas pattern. Electronically Signed: Kathy Otto MD at 9:06 EST , CC: Jw SIEGEL NP-C Lionel; Dr. Talon Enciso MD Clothing Pattern Preparer: Signed Normal [facility] CBC W/Diff, Automatedon 06-09 Absolute Lymph 2.00 X10 3/uL Normal 0.83-4.51 [facility] Comment on above: Order Comment: Order Date: 06/22/24 Order Info: 0184-1 - CBCD Performed By: #### L 100.0100 #### [facility] [address] [place], [id number] Absolute Neut 5.1 X10 3/uL Normal 2.0-7.7 [facility] Comment on above: Order Comment: Order Date: 06/22/24 Order Info: 0184-1 - CBCD Performed By: #### L 100.0100 #### [facility] [address] [place], [id number] Basophils/100 WBC (Bld) 0.6 % Normal 0-1 [facility] Comment on above: Order Comment: Order Date: 06/22/24 Order Info: 0184-1 - CBCD Performed By: #### L 100.0100 #### [facility] [address] [place], [id number] Eosinophils/100 WBC (Bld) 3.0 % Normal 0-5 [facility] Comment on above: Order Comment: Order Date: 06/22/24 Order Info: 0184-1 - CBCD Performed By: #### L 100.0100 #### [facility] [address] [place], [id number] Erythrocyte distribution width (RBC) [Ratio] 14.6 % Normal 11.6-14.6 [facility] Comment on above: Order Comment: Order Date: 06/22/24 Order Info: 0184-1 - CBCD Performed By: #### L 100.0100 #### [facility] [address] [place], [id number] Hematocrit (Bld) [Volume fraction] 41.9 % Normal 37-47 [facility] Comment on above: Order Comment: Order Date: 06/22/24 Order Info: 0184-1 - CBCD Performed By: #### L 100.0100 #### [facility] [address] [place], [id number] Hemoglobin (Bld) [Mass/Vol] 13.2 g/dL Normal 12.0-15.0 [facility] Comment on above: Order Comment: Order Date: 06/22/24 Order Info: 0184-1 - CBCD Performed By: #### L 100.0100 #### [facility] [address] [place], [id number] IG% 0.400 Normal 0.0-0.9 [facility] Comment on above: Order Comment: Order Date: 06/22/24 Order Info: 0184-1 - CBCD Result Comment: IG% - Immature Granulocytes (promyelocytes, myelocytes and metamyelocytes) > 1% indicates that a LEFT SHIFT is Present. Performed By: #### L 100.0100 #### [facility] [address] [place], [id number] Lymphocytes/100 WBC (Bld) 25.4 % Normal 19-41 [facility] Comment on above: Order Comment: Order Date: 06/22/24 Order Info: 0184-1 - CBCD Performed By: #### L 100.0100 #### [facility] [address] [place], [id number] MCH (RBC) [Entitic mass] 30.0 pg Normal 27.0-32.0 [facility] Comment on above: Order Comment: Order Date: 06/22/24 Order Info: 0184-1 - CBCD Performed By: #### L 100.0100 #### [facility] [address] [place], [id number] MCHC (RBC) [Mass/Vol] 31.5 g/dL Low 32-36 [facility] Comment on above: Order Comment: Order Date: 06/22/24 Order Info: 0184-1 - CBCD Performed By: #### L 100.0100 #### [facility] [address] [place], [id number] MCV (RBC) [Entitic vol] 95.2 fL Normal 81-99 [facility] Comment on above: Order Comment: Order Date: 06/22/24 Order Info: 0184-1 - CBCD Performed By: #### L 100.0100 #### [facility] [address] [place], [address] Monocytes/100 WBC (Bld) 5.3 % Normal 0-10 [facility] Comment on above: Order Comment: Order Date: 06/22/24 Order Info: 0184-1 - CBCD Performed By: #### L 100.0100 #### [facility] [address] [place], [address] Neutrophils/100 WBC (Bld) 65.3 % Normal 47-70 [facility] Comment on above: Order Comment: Order Date: 06/22/24 Order Info: 0184-1 - CBCD Performed By: #### L 100.0100 #### [facility] [address] [place], [id number] Nucleated RBC (Bld) [#/Vol] 0 10*3/uL Normal 0-5 [facility] Comment on above: Order Comment: Order Date: 06/22/24 Order Info: 0184-1 - CBCD Performed By: #### L 100.0100 #### [facility] [address] [place], [address] Platelet mean volume (Bld) [Entitic vol] 11.2 fL Normal 6.2-12.0 [facility] Comment on above: Order Comment: Order Date: 06/22/24 Order Info: 0184-1 - CBCD Performed By: #### L 100.0100 #### [facility] [address] [place], [address] Platelets (Bld) [#/Vol] 229 10*3/uL Normal 150-450 [facility] Comment on above: Order Comment: Order Date: 06/22/24 Order Info: 0184-1 - CBCD Performed By: #### L 100.0100 #### [facility] [address] [place], [address] RBC (Bld) [#/Vol] 4.40 10*6/uL Normal 4.2-5.4 [facility] Comment on above: Order Comment: Order Date: 06/22/24 Order Info: 0184-1 - CBCD Performed By: #### L 100.0100 #### [facility] [address] [place], [id number] RDW SD 51.1 fl High 35.1-43.9 [facility] Comment on above: Order Comment: Order Date: 06/22/24 Order Info: 0184- - CBCD Performed By: #### L 100.0100 #### [facility] [address] [place], [id number] WBC (Bld) [#/Vol] 7.9 10*3/uL Normal 4.4-11.0 [facility] Comment on above: Order Comment: Order Date: 06/22/24 Order Info: 0184- - CBCD Performed By: #### L 100.0100 #### [facility] [address] [place], [id number] Comprehensive Metabolic Prof [facility] 06-22-2024 Albumin [Mass/Vol] 3.3 g/dL Normal 3.2-5.0 [facility] Comment on above: Order Comment: Order Date: 06/22/24 Order Info: 0786-1 - CMP Order Info: 3040-3 - LIPASE Performed By: #### L 500.4050 #### [facility] [address] [place], [id number] Albumin/Globulin [Mass ratio] 0.8 {ratio} Low 0.9-2.4 [facility] Comment on above: Order Comment: Order Date: 06/22/24 Order Info: 0786-1 - CMP Order Info: 3040-3 - LIPASE Performed By: #### L 500.4050 #### [facility] [address] [place], [id number] ALK P 88 U/L Normal 45-117 [facility] Comment on above: Order Comment: Order Date: 06/22/24 Order Info: 0786-1 - CMP Order Info: 3040-3 - LIPASE Performed By: #### L 500.4050 #### [facility] [address] [place], [id number] ALT [Catalytic activity/Vol] 17 U/L Normal 13-56 [facility] Comment on above: Order Comment: Order Date: 06/22/24 Order Info: 0786-1 - CMP Order Info: 3040-3 - LIPASE Performed By: #### L 500.4050 #### [facility] [address] [place], [id number] AST [Catalytic activity/Vol] 8 U/L Low 15-37 [facility] Comment on above: Order Comment: Order Date: 06/22/24 Order Info: 0786-1 - CMP Order Info: 3040-3 - LIPASE Performed By: #### L 500.4050 #### [facility] [address] [place], [id number] Bilirubin [Mass/Vol] 0.40 mg/dL Normal 0.20-1.00 [facility] Comment on above: Order Comment: Order Date: 06/22/24 Order Info: 0786-1 - CMP Order Info: 3040-3 - LIPASE Result Comment: For patients on eltrombopag therapy, use of Dimension [place] TBIL is not recommended. Performed By: #### L 500.4050 #### [facility] [address] [place], [id number] BUN/CRE 10.5 RATIO Normal 10-20 [facility] Comment on above: Order Comment: Order Date: 06/22/24 Order Info: 0786-1 - CMP Order Info: 3040-3 - LIPASE Performed By: #### L 500.4050 #### [facility] [address] [place], [id number] CA,Total 9.4 mg/dL Normal 8.5-10.1 [facility] Comment on above: Order Comment: Order Date: 06/22/24 Order Info: 0786-1 - CMP Order Info: 3040-3 - LIPASE Performed By: #### L 500.4050 #### [facility] [address] [place], [place], [id number] (608) Chloride [Moles/Vol] 105 mmol/L Normal 98-107 [facility] Comment on above: Order Comment: Order Date: 06/22/24 Order Info: 0786-1 - CMP Order Info: 3040-3 - LIPASE Performed By: #### L 500.4050 #### [facility] [address] [place], [address] CO2 [Moles/Vol] 30.0 mmol/L Normal 21.0-32.0 [facility] Comment on above: Order Comment: Order Date: 06/22/24 Order Info: 07-1 - CMP Order Info: 3040-3 - LIPASE Performed By: #### L 500.4050 #### [facility] [address] [place], [address] Creatinine [Mass/Vol] 0.85 mg/dL Normal 0.55-1.02 [facility] Comment on above: Order Comment: Order Date: 06/22/24 Order Info: 0786-1 - CMP Order Info: 3040-3 - LIPASE Result Comment: The validity of the calculated GFR GFRAA in patients over 70 years has not been determined. Clinical correlation is essential. Performed By: #### L 500.4050 #### [facility] [address] [place], [address] EST GFR - AA 91 mL/min Normal >60 [facility] Comment on above: Order Comment: Order Date: 06/22/24 Order Info: 0786-1 - CMP Order Info: 3040-3 - LIPASE Result Comment: Afri can Egyptian GFR Calc Performed By: #### L 500.4050 #### [facility] [address] [place], [id number] GAP 2 Low 5-15 [facility] Comment on above: Order Comment: Order Date: 06/22/24 Order Info: 0786-1 - CMP Order Info: 3040-3 - LIPASE Performed By: #### L 500.4050 #### [facility] [address] [place], [id number] GFR/1.73 sq M.predicted among non-blacks MDRD (S/P/Bld) [Vol rate/Area] 75 mL/min/{1.73_m2} Normal >60 [facility] Comment on above: Order Comment: Order Date: 06/22/24 Order Info: 0786-1 - CMP Order Info: 3040-3 - LIPASE Result Comment: Non- GFR Calc Performed By: #### L [id number] #### [facility] [address] [place], [place], [address] Globulin (S) [Mass/Vol] 4.4 g/dL High 2.2-4.2 [facility] Comment on above: Order Comment: Order Date: 06/22/24 Order Info: 0786-1 - CMP Order Info: 3040-3 - LIPASE Performed By: #### L [id number] #### [facility] [address] [place], [id number] Glucose [Mass/Vol] 95 mg/dL Normal 74-106 [facility] Comment on above: Order Comment: Order Date: 06/22/24 Order Info: 0786-1 - CMP Order Info: 3040-3 - LIPASE Performed By: #### L [id number] #### [facility] [address] [place], [place], [address] (914 Potassium [Moles/Vol] 3.9 mmol/L Normal 3.5-5.1 [facility] Comment on above: Order Comment: Order Date: 06/22/24 Order Info: 0786-1 - CMP Order Info: 3040-3 - LIPASE Performed By: #### L [id number] #### [facility] [address] [place], [id number] Sodium [Moles/Vol] 137 mmol/L Normal 136-145 [facility] Comment on above: Order Comment: Order Date: 06/22/24 Order Info: 0786-1 - CMP Order Info: 3040-3 - LIPASE Performed By: #### L [id number] #### [facility] [address] [place], [id number] T PROT 7.7 g/dL Normal 6.4-8.2 [facility] Comment on above: Order Comment: Order Date: 06/22/24 Order Info: 0786-1 - CMP Order Info: 3040-3 - LIPASE Performed By: #### L [id number] #### [facility] [address] [place], [id number] Urea nitrogen [Mass/Vol] 9 mg/dL Normal 7-18 [facility] Comment on above: Order Comment: Order Date: 06/22/24 Order Info: 0786-1 - CMP Order Info: 3040-3 - LIPASE Performed By: #### L [id number] #### [facility] [address] [place], [id number] Lipaseon 06-22-2024 Lipase [Catalytic activity/Vol] 29 U/L Normal 13-75 [facility] Comment on above: Order Comment: Order Date: 06/22/24Order Info: 0786-1 - CMPOrder Info: 3040-3 - LIPASE Result Comment: Zechariah winkler note: LIPASE revised reference range effective 22. New Lipase methodology. Expected to produce lower values than the previous assay method. NEW Reference Range: 13 - 75 U/L Performed By: #### L 501.2450 ####[facility] [address] [place], [address] PT D/C Summary (1)on 06-01- 024 PT D/C Summary (1) [facility] [address] [place] [address] / REHABILITATION SERVICES DISCHARGE SUMMARY MR#: [id number] Acct: [id number] Name: SO ALDRIDGE Rep #: [id number] : 1975 48 From: Gertrude MEREDITH Referring Dr.: MUKUND Linares Status: RE G RCR Insurance: [facility] SELF PAY INSURANCE Discharge Summary D/C summary: It has been my pleasure to treat SO ALDRIDGE referred by Dr. 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 Discharge Date: 06/01/24 Please see the following information for a summary of their discharge status. Subjective Subjective: Pt is doing better and PT seems to be working. The pain is less frequent. It bothers her if she sits too long. She feels that the stretching with the towel helps a lot. Pt wants to continue to do her HEP for now. Pain L hip/L leg pain: Pain Intensity (Out of 10): 3 L foot pain: Pain Intensity (Out of 10): 3 R foot pain: Pain Intensity (Out of 10): Unrated Overall Improvement % Improvement: 80 Objective Objective/Function: Gait: walks with shorter stride length but equal stance time Piriformis stretch: Pt is still pretty tight B but worse L than R. Stairs: hard to ascend the step with the L leg but able to go up and down recip with 2 hand rails Pt reports full understanding of HEP Goals Goal 1:: I HEP Goal Progress: Goal Met Goal 2:: Decrease L leg and foot pain by 50% Goal Progress: Goal Met Goal 3:: Be able to stretch L piriformis without pain and increase ROM Goal Progress: Progressing Goal 4:: Walk with no antalgic gait Goal Progress: Goal Met Plan Plan: DC PT to HEP per pt request. D/C Information Discharge Comments: DC PT to HEP d/c sentence: If there are questions or concerns regarding this patient's physical therapy, please feel free to call me at [phone]. Thank you for the referral of this patient. Sincerely, MASOUD Chawla Balance/Gait/Functional tests Balance/Special Test Scores Lower Extremity Functional Score: 34 Improvement % Improvement: 80 06/01/24 0735 CC: MUKUND Linares; Dr. Talon Enciso MD Signed Normal [facility] Inital Evaluation (1) - PTon 05-05-2024 Inital Evaluation (1) - PT [facility] [address] [place] [address] / REHABILITATION SERVICES INITIAL EVALUATION MR#: [id number] Acct: [id number] Name: SO ALDRIDGE Rep #: [id number] : 1975 48 From: Gertrude MEREDITH Referring Dr.: Rodolfo Linares DPM Status: RE G RCR Insurance: [facility] SELF PAY INSURANCE Patient's Visit Information Visit Information Visit Information: SO ALDRIDGE is a 48 year old F referred to Physical Therapy by Dr. 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 Date of Evaluation: 05/05/24 Physical Therapist: MASOUD Chawla Visit Plan Frequency: 2-3x /Week Duration: 6 Weeks Plan: 2-3X/ week for 6 weeks for stretching of the L piriformis, 90/90 nerve root stretching, Prone to JESSICA and progression, core stability, MT if needed to L piriformis, gait training, balance and ankle stabilization, ankle strength, US if needed for pain on the L foot with HEP HEP: Standing wall calf stretch, LTR, Prone to JESSICA, seated piriformis stretch, seated toe towel curls, and ankle DF/PF Subjective Subjective: She has orthotics and they are helping. Her pain is mostly in the L foot. This has been going on for a long time and it got to the point she could not walk or tie her shoe. She has had the orthotics for about 2 months and she is on her feet a lot and has bought a second pain. She is not stretching. Right now she she has 3/10 pain from her back down her whole leg. The sciatic started the whole foot pain. No images were done on her back. She has LBP but pain is mostly in her buttocks and her whole L leg is just achy. She gets sharp pain if she does too much bending/twisting etc. Sometimes she will be sitting there and get a sharp pain all the way down the leg. She gets tingling mostly in her leg. The pain sometimes wakes her up at night. She thinks that transitioning from sitting to standing hurts the worse. Sitting increases her pain more than walking as far as the sciatica goes. Pain L hip/L leg pain: Pain Intensity (Out of 10): 2 L foot pain: Pain Intensity (Out of 10): 4 R foot pain: Pain Intensity (Out of 10): 0 Objective Objective: Gait: walks with decrease stance time on the L LE L ankle DF 0 and PF 42 degrees.... with DF pt felt a big pull in her calf. Patellar DTR: 0/3 B + SLUMP test on the L for pain down the whole L leg and + SLR on the L for pain on the L side Prone to JESSICA X 10... less pull the more she did. LE MMT: R hip flex 8.7 and L 8.1 R knee ext 8.8 and L 7.2 R knee flex 6 and L 6.5 Palpation: increase tenderness over L piriformis, greater trochanter, and IT band Worked on bringing L knee to R shoulder and able to loosen up some with less pain but pain at first LTR: pt had increase pain at first but did loosen up the more she did Pt walked out after eval and felt much looser Balance/Special Test Scores Lower Extremity Functional Score: 25 Goals Goal 1:: I HEP Goal Time Frame: 6-8 Weeks Goal 2:: Decrease L leg and foot pain by 50% Goal Time Frame: 6-8 Weeks Goal 3:: Be able to stretch L piriformis without pain and increase ROM Goal Time Frame: 6-8 Weeks Goal 4:: Walk with no antalgic gait Goal Time Frame: 6-8 Weeks Rehabilitation Potential Rehabilitation Potential: Good Anticipated Interventions Patient/Client Instruction: Educate patient on: Condition and Plan of Care For the Purpose of:: To decrease pain, To increase ROM, To improve nutrient delivery to tissue, To improve muscle performance and motor function, To improve ability to perform ADL's, To increase tolerance to activity/condition/positi on, To improve performance and independence with ADL's, To decrease level of supervision to perform tasks, To improve ability of physical actions for home/community/work/leisu re, To improve gait and locomotor functions, To improve health of tissue, To decrease soft tissue restriction, To increase flexibility/ROM, To improve balance and To improve safety with gait Therapeutic Exercise to Include: Strength training, Endurance training, Balance training, Postural training, Flexibilty training, Gait and locomotor training, Neuromotor development, Active ROM and Dynamic Lumbar Stabilization For the Purpose of:: To decrease pain, To increase ROM, To improve nutrient delivery to tissue, To improve muscle performance and motor function, To improve ability to perform ADL's, To increase tolerance to activity/condition/positi on, To improve performance and independence with ADL's, To improve ability of physical actions for home/community/work/leisu re, To improve gait and locomotor functions, To improve health of tissue, To increase flexibility/ROM, To improve endurance and To improve safety with gait Functional Training to Include: Gait training For the Purpose of (more content not included)... 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 Chief Complaint: cyst left breast Allergies No Known Allergies Allergy (Verified 08/26/23 08:32) Office Procedures [facility] Billing Sheet Testing Pre-Employment PE: Yes Respirator Fit Testing: Yes 04/26/24 0638 Date Vladimir Lewisigncarol Signature: Date (if applicable) CC: Normal [facility] Office Visit Reporton 2023 Office Visit Report [facility] [place] [address] OFFICE VISIT Date of Service: 04/14/24 MR#: [id number] Acct: [id number] Patient: SO ALDRIDGE Rep #: [id number] : 1975 Provider: ROSANA Hirsch Age/Sex: 48/F Location: [facility] [place] Status: Signed Intake Vital Signs 08/26/23 08:31 Height 5 ft 8 in Intake Visit Reasons: RES FIT TESTING/SIXTO IND Chief Complaint: cyst left breast Allergies No Known Allergies Allergy (Verified 08/26/23 08:32) [facility] Procedures [facility] Billing Sheet Testing Respirator Fit Testing: Yes 04/19/24811 Date Vladimir Calero Signature: Date (if applicable) CC: Normal [facility] Urgent Care Visit Reporton 1 06-14-2023 Urgent Care Visit Report [facility] [address], [address] [place] [address] OFFICE VISIT Date of Service: 04/14/24 MR#: [id number] Acct: [id number] Name: SO ALDRIDGE Rep #: [id number] : 1975 Provider: ROSANA Hirsch Age/Sex: 48/F Location: [facility] [place] Status: Signed Intake Vital Signs 08/26/23 08:31 Height 5 ft 8 in Intake 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 Chief Complaint: cyst left breast Allergies No Known Allergies Allergy (Verified 08/26/23 08:32) [facility] Medical History (Updated 04/14/24 @ 10:01 by Vladimir WAYNE PA) Respiratory clearance examination, encounter for Loose, teeth Bipolar disorder Blister Hypothyroidism Chronic cough Hoarseness Smoker Pain aggravated by walking Edema Hx of echocardiogram Easy bruising Migraine headache Back pain Injury of head and neck Fatigue Anxiety Depression Nausea Umbilical pain Fibromyalgia Abnormal stress test Chest pain Surgical History History of umbilical hernia repair ( 11/2020) Hx of cardiac catheterization History of colonoscopy History of tubal ligation History of cholecystectomy History of lumpectomy of left breast History of eye surgery Family History Father Heart disease Hypertension Aunt Heart disease Uncle Heart disease Mother Cancer Social History Smoking Status: Current every day smoker alcohol intake: current details: rare substance use type: does not use caffeine: Yes what type of physical activity do you participate in: none frequency: does not exercise HPI HPI Chief Complaint: cyst left breast Details: SO ALDRIDGE, is a 48 F who presents to the office today for Office Procedures Physical Exam Coding PE Coding Pre-employment PE: Yes Additional Details: respiratory exam Coding Level of Care Code No Charge Diagnoses Respiratory clearance examination, encounter for Z01.89 Assessment and Plan Assessment and Plan (1) Respiratory clearance examination, encounter for: Status: Acute 04/14/24 1001 Date Vladimir WAYNE Cosigner Signature: Date (if applicable) CC: Normal [facility] Foot min 3 Viewson 4 Foot min 3 Views [facility] [address] [place], [place] [address] Foot min 3 Views MR#: [id number] Acct: [id number] Name: LUIS CARLOSSO Rep #: [id number] : 1975 F 48 From: Levi Holder PCP: Dr. Talon Enciso MD Status: REG CLI Study: Foot min 3 Views Date of Exam: 02/02/24 Exam# [id number] Ordering Dr: Talon Enciso MD [id number] INDICATION: PAIN EXAMINATION/TECHNIQUE: X-RAY - LEFT XR Foot Min 3 Views 3 VIEWS COMPARISON: No relevant prior comparison study available FINDINGS: SOFT TISSUES: No soft tissue swelling or gas. No radiopaque foreign body. BONES/JOINTS: There is normal bony alignment. Mild osteophyte formation. No fracture or dislocation. There is a plantar spur.. . No sclerotic or destructive changes observed. RAD/Foot min 3 Views IMPRESSION: 1. Mild degenerative change and osteophyte formation in the midfoot. Plantar spur also noted. 2. No acute fracture dislocation or destructive bony process. Electronically Signed: Levi Hawley MD at 21:37 EDT , CC: Dr. Talon Encsio MD Clothing Pattern Preparer: Signed Normal [facility] Pelvic (Non )on 12-09 Pelvic (Non ) [facility] [address] [place] [id number] Pelvic (Non ) MR#: [id number] Acct: [id number] Name: SO ALDRIDGE Rep #: [id number] : 1975 F 48 From: Rick Holder PCP: Dr. Talon Enciso MD Status: REG CLI Study: Pelvic (Non ) Date of Exam: 01/07/24 Exam# [id number] Ordering Dr: Talon Enciso MD [id number] INDICATION: Abnormal uterine bleeding EXAMINATION: Ultrasound US Pelvis Non-OB Complete TECHNIQUE: Transabdominal and transvaginal pelvic ultrasound was performed. Grayscale, spectral waveform, and color flow Doppler evaluation of the adnexa. COMPARISON: No relevant prior comparison study available FINDINGS: UTERUS: Anteverted. The uterus measures 10.6 x 5.8 x 4.6 cm. There is no uterine mass. The endometrial stripe measures 7 mm in AP diameter which is within normal limits. RIGHT OVARY: Not visualized. LEFT OVARY: 2.2 x 1.7 x 1.3 cm. Non-enlarged, normal echogenicity. There is normal arterial inflow and venous outflow present in the left ovary. FREE FLUID: None. US/Pelvic (Non ) IMPRESSION: 1. No significant abnormality. 2. Nonvisualization of the left ovary. Electronically Signed: Rick Ceja MD at 11:09 EDT , CC: Dr. Talon Enciso MD Clothing Pattern Preparer: Signed Normal [facility] Basophil percentageOrdered B y: Talon Enciso on 08-23-2023 Chloride [Moles/Vol] 104 mmol/L 98-107 [facility] Cholesterol [Mass/Vol] 228 mg/dL <200 [facility] Comment on above: <200 mg/dL Desirable 200-240 mg/dL Borderline >240 mg/dL High Risk Glucose [Mass/Vol] 89 mg/dL 74-106 [facility] Potassium [Moles/Vol] 4.0 mmol/L 3.5-5.1 [facility] Sodium [Moles/Vol] 139 mmol/L 136-145 [facility] Triglyceride [Mass/Vol] 216 mg/dL <199 [facility] Comment on above: The drugs N-Acetylcy steine and Metamizole may falsely depress this assay.Serum Triglycerides Reference Interval Normal <150 mg/dL Borderline high 150 - 199 mg/dL High 200 - 499 mg/dL Very High > or = 500 mg/dL Laboratory - Chemistry and C hemistry - challengeOrdered By: Talon Enciso on 08-23-2023 Cholesterol in HDL [Mass/Vol] 55 mg/dL >40 [facility] Comment on above: The drugs N-Acetylcy steine and Metamizole may falsely depress this assay. Reference Range HDL <40 mg/dL Low HDL Cholesterol HDL >or= 60 mg/dL High HDL Cholesterol Cholesterol in LDL [Mass/Vol] 130 mg/dL 0-130 [facility] CO2 [Moles/Vol] 29.0 mmol/L 21.0-32.0 [facility] Urea nitrogen/Creatinine [Mass ratio] 12.9 mg/mg 10-20 [facility] No Panel InformationOrdered By: Talon Enciso on 08-23-2023 Estimated GFR (MDRD) Amer 91 mL/min >60 [facility] Comment on above: GFR Calc Estimated GFR (MDRD) Non-Af Amer 75 mL/min >60 [facility] Comment on above: Non- GFR Calc Free Triiodothyronine (T3) pg/dL 2.2 pg/mL 2.18-3.98 [facility] VLDL Cholesterol 43 mg/dL 5-40 [facility] Serum or plasma calcium danilo urement (mass/volume)Ordered By: Talon Enciso on 08-23-2023 Calcium [Mass/Vol] 8.9 mg/dL 8.5-10.1 [facility] Serum or plasma creatinine m easurement (mass/volume)Ordered By: Talon Enciso on 08-23-2023 Creatinine [Mass/Vol] 0.86 mg/dL 0.55-1.02 [facility] Comment on above: The validity of the calculated GFR & GFRAA in patients over 70 years has not been determined. Clinical correlation is essential. Serum or plasma thyroid stim ulating hormone (TSH) measurement (units/volume)Ordered By: Talon Enciso on 08-23-2023 TSH Qn 7.81 uIU/mL 0.358-3.74 [facility] Serum or plasma urea nitroge n measurement (mass/volume)Ordered By: Talon Enciso on 08-23-2023 Urea nitrogen [Mass/Vol] 11 mg/dL 7-18 [facility] Thin prep Papanicolaou smear with manual screeningOrdered By: Talon Enciso on 08-23-2023 Thin prep Papanicolaou smear with manual screening 6 5-15 [facility] Thin prep Papanicolaou smear with manual screening 0.78 ng/dL 0.76-1.46 [facility] Basophil percentageOrdered B y: Talon Enciso on 07-25-2023 Chloride [Moles/Vol] 111 mmol/L 98-107 [facility] Glucose [Mass/Vol] 96 mg/dL 74-106 [facility] Potassium [Moles/Vol] 5.0 mmol/L 3.5-5.1 [facility] Comment on above: Slight Hemolysis, Re sult may be falsely increased. Sodium [Moles/Vol] 140 mmol/L 136-145 [facility] Laboratory - Chemistry and C hemistry - challengeOrdered By: Talon Enciso on 07-25-2023 CO2 [Moles/Vol] 24.0 mmol/L 21.0-32.0 [facility] Urea nitrogen/Creatinine [Mass ratio] 13.2 mg/mg 10-20 [facility] No Panel InformationOrdered By: Talon Enciso on 07-25-2023 Estimated GFR (MDRD) Amer 94 mL/min >60 [facility] Comment on above: GFR Calc Estimated GFR (MDRD) Non-Af Amer 78 mL/min >60 [facility] Comment on above: Non- GFR Calc Serum or plasma calcium danilo urement (mass/volume)Ordered By: Talon Enciso on 07-25-2023 Calcium [Mass/Vol] 9.3 mg/dL 8.5-10.1 [facility] Serum or plasma creatinine m easurement (mass/volume)Ordered By: Talon Enciso on 07-25-2023 Creatinine [Mass/Vol] 0.83 mg/dL 0.55-1.02 [facility] Comment on above: The validity of the calculated GFR & GFRAA in patients over 70 years has not been determined. Clinical correlation is essential. Serum or plasma urea nitroge n measurement (mass/volume)Ordered By: Talon Enciso on 07-25-2023 Urea nitrogen [Mass/Vol] 11 mg/dL 7-18 [facility] Thin prep Papanicolaou smear with manual screeningOrdered By: Talon Enciso on 07-25-2023 Thin prep Papanicolaou smear with manual screening 5 5-15 [facility] Basophil percentageOrdered B y: Talon Enciso on 06-25-2023 Chloride [Moles/Vol] 110 mmol/L 98-107 [facility] Glucose [Mass/Vol] 88 mg/dL 74-106 [facility] Potassium [Moles/Vol] 4.3 mmol/L 3.5-5.1 [facility] Sodium [Moles/Vol] 140 mmol/L 136-145 [facility] Laboratory - Chemistry and C hemistry - challengeOrdered By: Talon Enciso on 06-25-2023 CO2 [Moles/Vol] 27.0 mmol/L 21.0-32.0 [facility] Urea nitrogen/Creatinine [Mass ratio] 12.2 mg/mg 10-20 [facility] No Panel InformationOrdered By: Talon Enciso on 06-25-2023 Estimated GFR (MDRD) Amer 96 mL/min >60 [facility] Comment on above: GFR Calc Estimated GFR (MDRD) Non-Af Amer 79 mL/min >60 [facility] Comment on above: Non- GFR Calc Serum or plasma calcium danilo urement (mass/volume)Ordered By: Talon Enciso on 06-25-2023 Calcium [Mass/Vol] 9.6 mg/dL 8.5-10.1 [facility] Serum or plasma creatinine m easurement (mass/volume)Ordered By: Talon Enciso on 06-25-2023 Creatinine [Mass/Vol] 0.82 mg/dL 0.55-1.02 [facility] Comment on above: The validity of the calculated GFR & GFRAA in patients over 70 years has not been determined. Clinical correlation is essential. Serum or plasma urea nitroge n measurement (mass/volume)Ordered By: Talon Enciso on 06-25-2023 Urea nitrogen [Mass/Vol] 10 mg/dL 7-18 [facility] Thin prep Papanicolaou smear with manual screeningOrdered By: Talon Enciso on 01-17-2024 Thin prep Papanicolaou smear with manual screening 3 5-15 [facility] Absolute lymphocyte counton 04-19-2022 Lymphocytes Auto (Unsp spec) [#/Vol] 1.79 10*3/uL 0.83-4.51 [facility] Work Phone: Basophil percentageon 2021 Basophils/100 WBC (Bld) 0.6 % 0-1 [facility] Work Phone: Chloride [Moles/Vol] 107 mmol/L 98-107 [facility] Work Phone: Cholesterol [Mass/Vol] 143 mg/dL <200 [facility] Work Phone: Comment on above: <200 mg/dL Desirable 200-240 mg/dL Borderline >240 mg/dL High Risk Eosinophils/100 WBC (Bld) 2.6 % 0-5 [facility] Work Phone: Glucose [Mass/Vol] 108 mg/dL 74-106 [facility] Work Phone: Comment on above: Fasting Glucose resu lt from 100 to 125 mg/dL suggests IMPAIRED HOMEOSTASIS per A.D.A. criteria. Neutrophils (Bld) [#/Vol] 6.2 10*3/uL 2.0-7.7 [facility] Work Phone: Neutrophils/100 WBC (Bld) 70.4 % 47-70 [facility] Work Phone: Potassium [Moles/Vol] 3.9 mmol/L 3.5-5.1 [facility] Work Phone: Sodium [Moles/Vol] 139 mmol/L 136-145 [facility] Work Phone: Triglyceride [Mass/Vol] 114 mg/dL <199 [facility] Work Phone: Comment on above: The drugs N-Acetylcy steine and Metamizole may falsely depress this assay.Serum Triglycerides Reference Interval Normal <150 mg/dL Borderline high 150 - 199 mg/dL High 200 - 499 mg/dL Very High > or = 500 mg/dL WBC (Bld) [#/Vol] 8.7 10*3/uL 4.4-11.0 [facility] Work Phone: Blood erythrocytes count (nu mber/volume)on 04-19-2022 RBC (Bld) [#/Vol] 4.14 10*6/uL 4.2-5.4 [facility] Work Phone: Blood hemoglobin measurement (mass/volume)on 04-19-2022 Hemoglobin (Bld) [Mass/Vol] 11.9 g/dL 12.0-15.0 [facility] Work Phone: Blood lymphocytes/100 leukoc yteson 04-19-2022 Lymphocytes/100 WBC (Bld) 20.5 % 19-41 [facility] Work Phone: Blood monocytes/100 leukocyt eson 04-19-2022 Monocytes/100 WBC (Bld) 5.8 % 0-10 [facility] Work Phone: Blood platelet mean volumeon 04-19-2022 Platelet mean volume (Bld) [Entitic vol] 11.2 fL 6.2-12.0 [facility] Work Phone: Determination of erythrocyte mean corpuscular volume (MCV)on 04-19-2022 MCV (RBC) [Entitic vol] 90.8 fL 81-99 [facility] Work Phone: Hematocrit Auto (Bld) [Volum e fraction]on 04-19-2022 Hematocrit (Bld) [Volume fraction] 37.6 % 37-47 [facility] Work Phone: Laboratory - Chemistry and C hemistry - challengeon 04-19-2022 CO2 [Moles/Vol] 24.0 mmol/L 21.0-32.0 [facility] Work Phone: Free T4 [Mass/Vol] 0.82 ng/dL 0.76-1.46 [facility] Work Phone: Urea nitrogen/Creatinine [Mass ratio] 15.8 mg/mg 10-20 [facility] Work Phone: Laboratory - Hematology and Cell countson 04-19-2022 Erythrocyte distribution width (RBC) [Entitic vol] 49.2 fL 35.1-43.9 [facility] Work Phone: Erythrocyte distribution width (RBC) [Ratio] 14.7 % 11.6-14.6 [facility] Work Phone: Immature granulocytes/100 WBC (Bld) 0.100 % 0.0-0.9 [facility] Work Phone: Comment on above: IG% - Immature Granu locytes (promyelocytes, myelocytes and metamyelocytes) > 1% indicates that a LEFT SHIFT is Present. MCH (RBC) [Entitic mass] 28.7 pg 27.0-32.0 [facility] Work Phone: Nucleated RBC/100 WBC (Bld) [Ratio] 0 % 0-5 [facility] Work Phone: MCHC Auto (RBC) [Mass/Vol]on 04-19-2022 MCHC (RBC) [Mass/Vol] 31.6 g/dL 32-36 [facility] Work Phone: No Panel Informationon 04-19 Estimated GFR (MDRD) Amer 105 mL/min >60 [facility] Work Phone: Comment on above: GFR Calc Estimated GFR (MDRD) Non-Af Amer 87 mL/min >60 [facility] Work Phone: Comment on above: Non- GFR Calc Free Triiodothyronine (T3) pg/dL 1.9 pg/mL 2.18-3.98 [facility] Work Phone: Thyroid Stimulating Hormone (TSH) 10.10 uIU/mL 0.358-3.74 [facility] Work Phone: Platelets bldon 04-19-2022 Platelets (Bld) [#/Vol] 235 10*3/uL 150-450 [facility] Work Phone: Serum or plasma calcium danilo urement (mass/volume)on 04-19-2022 Calcium [Mass/Vol] 8.4 mg/dL 8.5-10.1 [facility] Work Phone: Serum or plasma cholesterol in HDL measurement (mass/volume)on 04-19-2022 Cholesterol in HDL [Mass/Vol] 41 mg/dL >40 [facility] Work Phone: Comment on above: The drugs N-Acetylcy steine and Metamizole may falsely depress this assay. Reference Range HDL <40 mg/dL Low HDL Cholesterol HDL >or= 60 mg/dL High HDL Cholesterol Serum or plasma cholesterol in VLDL measurement (mass/volume)on 04-19-2022 Cholesterol in VLDL [Mass/Vol] 23 mg/dL 5-40 [facility] Work Phone: Serum or plasma creatinine m easurement (mass/volume)on 04-19-2022 Creatinine [Mass/Vol] 0.76 mg/dL 0.55-1.02 [facility] Work Phone: Comment on above: The validity of the calculated GFR & GFRAA in patients over 70 years has not been determined. Clinical correlation is essential. Serum or plasma low density lipoprotein (LDL) cholesterol measurement (mass/volume)on 04-19-2022 Cholesterol in LDL [Mass/Vol] 79 mg/dL 0-130 [facility] Work Phone: Serum or plasma urea nitroge n measurement (mass/volume)on 04-19-2022 Urea nitrogen [Mass/Vol] 12 mg/dL 7-18 [facility] Work Phone: Thin prep Papanicolaou smear with manual screeningon 04-19-2022 Thin prep Papanicolaou smear with manual screening 8 5-15 [facility] Work Phone: Absolute lymphocyte counton 10-10-2021 Lymphocytes Auto (Unsp spec) [#/Vol] 2.00 10*3/uL 0.83-4.51 [facility] Work Phone: Basophil percentageon 2021 Basophils/100 WBC (Bld) 0.6 % 0-1 [facility] Work Phone: Chloride [Moles/Vol] 108 mmol/L 98-107 [facility] Work Phone: Eosinophils/100 WBC (Bld) 3.4 % 0-5 [facility] Work Phone: Glucose [Mass/Vol] 81 mg/dL 74-106 [facility] Work Phone: [phone] Neutrophils (Bld) [#/Vol] 3.5 10*3/uL 2.0-7.7 [facility] Work Phone: Neutrophils/100 WBC (Bld) 56.6 % 47-70 [facility] Work Phone: Potassium [Moles/Vol] 3.6 mmol/L 3.5-5.1 [facility]: Sodium [Moles/Vol] 139 mmol/L 136-145 [facility] Work Phone: WBC (Bld) [#/Vol] 6.2 10*3/uL 4.4-11.0 [facility] Work Phone: Blood erythrocytes count (nu mber/volume)on 10-10-2021 RBC (Bld) [#/Vol] 4.44 10*6/uL 4.2-5.4 [facility] Work Phone: Blood hemoglobin measurement (mass/volume)on 10-10-2021 Hemoglobin (Bld) [Mass/Vol] 12.8 g/dL 12.0-15.0 [facility] Work Phone: Blood lymphocytes/100 leukoc yteson 10-10-2021 Lymphocytes/100 WBC (Bld) 32.4 % 19-41 [facility] Work Phone: Blood monocytes/100 leukocyt eson 10-10-2021 Monocytes/100 WBC (Bld) 6.8 % 0-10 [facility] Work Phone: Blood platelet mean volumeon 10-10-2021 Platelet mean volume (Bld) [Entitic vol] 11.4 fL 6.2-12.0 [facility] Work Phone: Determination of erythrocyte mean corpuscular volume (MCV)on 10-10-2021 MCV (RBC) [Entitic vol] 92.8 fL 81-99 [facility] Work Phone: Hematocrit Auto (Bld) [Volum e fraction]on 10-10-2021 Hematocrit (Bld) [Volume fraction] 41.2 % 37-47 [facility] Work Phone: Laboratory - Chemistry and C hemistry - challengeon 10-10-2021 CO2 [Moles/Vol] 27.0 mmol/L 21.0-32.0 [facility] Work Phone: Free T4 [Mass/Vol] 0.80 ng/dL 0.76-1.46 [facility] Work Phone: Urea nitrogen/Creatinine [Mass ratio] 11.3 mg/mg 10-20 [facility] Work Phone: Laboratory - Hematology and Cell countson 10-10-2021 Erythrocyte distribution width (RBC) [Entitic vol] 50.6 fL 35.1-43.9 [facility] Work Phone: Erythrocyte distribution width (RBC) [Ratio] 14.7 % 11.6-14.6 [facility] Work Phone: Immature granulocytes/100 WBC (Bld) 0.200 % 0.0-0.9 [facility] Work Phone: Comment on above: IG% - Immature Granu locytes (promyelocytes, myelocytes and metamyelocytes) > 1% indicates that a LEFT SHIFT is Present. MCH (RBC) [Entitic mass] 28.8 pg 27.0-32.0 [facility] Work Phone: Nucleated RBC/100 WBC (Bld) [Ratio] 0 % 0-5 [facility] Work Phone: MCHC Auto (RBC) [Mass/Vol]on 10-10-2021 MCHC (RBC) [Mass/Vol] 31.1 g/dL 32-36 [facility] Work Phone: No Panel Informationon 10-10 Estimated GFR (MDRD) Amer 88 mL/min >60 [facility] Work Phone: Comment on above: GFR Calc Estimated GFR (MDRD) Non-Af Amer 73 mL/min >60 [facility] Work Phone: Comment on above: Non- GFR Calc Free Triiodothyronine (T3) pg/dL 2.3 pg/mL 2.18-3.98 [facility] Work Phone: Thyroid Stimulating Hormone (TSH) 8.05 uIU/mL 0.358-3.74 [facility] Work Phone: Platelets bldon 10-10-2021 Platelets (Bld) [#/Vol] 249 10*3/uL 150-450 [facility] Work Phone: Serum or plasma calcium danilo urement (mass/volume)on 10-10-2021 Calcium [Mass/Vol] 8.9 mg/dL 8.5-10.1 [facility] Work Phone: Serum or plasma creatinine m easurement (mass/volume)on 10-10-2021 Creatinine [Mass/Vol] 0.88 mg/dL 0.55-1.02 [facility] Work Phone: Comment on above: The validity of the calculated GFR & GFRAA in patients over 70 years has not been determined. Clinical correlation is essential. Serum or plasma urea nitroge n measurement (mass/volume)on 10-10-2021 Urea nitrogen [Mass/Vol] 10 mg/dL 7-18 [facility] Work Phone: Thin prep Papanicolaou smear with manual screeningon 05-04-2022 Thin prep Papanicolaou smear with manual screening 4 5-15 [facility] Work Phone: Laboratory - Microbiology an d Antimicrobial susceptibilityon 06-19-2021 SARS-CoV-2 (COVID-19) RNA SHILA+probe Ql (Unsp spec) Not detected Not Detect [facility] Work Phone: Comment on above: Normal Reference Ran ge: Not DetectedMethod:(RT-PCR) real-time reverse transcriptase PCRLuminex Hastify Instrument*The Food and Drug Administration (FDA) has issued an Emergency Use Authorization (EAU) for the Hastify SARS-CoV-2 Assay for the rapid detection of the virus that causes COVID-19. This test has been validated, but the FDAs independent review of this validation is pending.*Negative results do not preclude infection and should not be used as the sole basis for treatment or patient management. Optimum specimen types and timing for peak viral levels during infections caused by SARS-CoV-2 have not been determined. Collection of multiple specimens from the same patient may be necessary to detect the virus. The possibility of a false negative result should be considered if the patient has clinical presentation or has had recent exposure. .Urinalysis Microscopic (AO) on 07-27-2017 UA Squam Epithelial None Seen Normal None Seen [facility] ([place]) Comment on above: Performed By: #### C BC, ADIFF, ANEU, TROP, PBNP, GFR, CMP ####[address] [place], [place] [address] UA WBC None Seen Normal None Seen [facility] ([place]) Comment on above: Performed By: #### C BC, ADIFF, ANEU, TROP, PBNP, GFR, CMP ####[address] [place], [place] [address] Urine, erythrocytes None Seen Normal None Seen [facility] ([place]) Comment on above: Performed By: #### C BC, ADIFF, ANEU, TROP, PBNP, GFR, CMP ####[address] [place], [place] [address] [facility] Note on 07-27-2017 [facility] Note Normal [facility] ([place]) Pat Eduon 07-27-2017 Pat Edu Normal [facility] ([place]) Patient Summary Documentson 07-27-2017 Patient Summary Documents Normal [facility] ([place]) UAon 07-27-2017 UA Appear CLEAR [facility] ([place]) Comment on above: Performed By: #### C BC, ADIFF, ANEU, TROP, PBNP, GFR, CMP ####[address] [place], [place] [address] UA Blood Negative [facility] ([place]) Comment on above: Performed By: #### C BC, ADIFF, ANEU, TROP, PBNP, GFR, CMP ####[address] [place], [place] [address] UA Leuk Est Negative [facility] ([place]) Comment on above: Performed By: #### C BC, ADIFF, ANEU, TROP, PBNP, GFR, CMP ####[address] [place], [place] [address] UA Nitrite Negative [facility] ([place]) Comment on above: Performed By: #### C BC, ADIFF, ANEU, TROP, PBNP, GFR, CMP ####[address] [place], [place] [address] UA pH 6.0 [facility] ([place]) Comment on above: Performed By: #### C BC, ADIFF, ANEU, TROP, PBNP, GFR, CMP ####[address] [place], [place] [address] UA Protein Negative [facility] ([place]) Comment on above: Performed By: #### C BC, ADIFF, ANEU, TROP, PBNP, GFR, CMP ####[address] [place], [place] [address] UA Spec Grav 1.010 Abnormal [facility] ([place]) Comment on above: Performed By: #### C BC, ADIFF, ANEU, TROP, PBNP, GFR, CMP ####[address] [place], [place] [address] UA Specimen Type Clean Catch [facility] ([place]) Comment on above: Performed By: #### C BC, ADIFF, ANEU, TROP, PBNP, GFR, CMP ####[address] [place], [place] [address] UA Urobilinogen 0.2 E.U./dL Normal [facility] ([place]) Comment on above: Performed By: #### C BC, ADIFF, ANEU, TROP, PBNP, GFR, CMP ####[address] [place], [place] [address] Urine, color YELLOW Normal [facility] ([place]) Comment on above: Performed By: #### C BC, ADIFF, ANEU, TROP, PBNP, GFR, CMP ####[address] [place], [place] [address] Urine, glucose Negative Normal [facility] ([place]) Comment on above: Performed By: #### C BC, ADIFF, ANEU, TROP, PBNP, GFR, CMP ####[address] [place], [place] [address] Urine, ketones presence Negative Normal [facility] ([place]) Comment on above: Performed By: #### C BC, ADIFF, ANEU, TROP, PBNP, GFR, CMP ####[address] [place], [place] [address] Urine, urobilinogen Negative Normal [facility] ([place]) Comment on above: Performed By: #### C BC, ADIFF, ANEU, TROP, PBNP, GFR, CMP ####[address] [place], [place] [address] XR CHEST 2 VIEWSon 8 XR CHEST 2 VIEWS ORIGINALXR CHEST 2 V IEWS, 07/27/2017 9:55 AM INDICATION: SOB/Cough/Fever COMPARISON: 16 June 2017 FINDINGS: There is a hazy opacification in the infrahilar right lung. The left lung is clear. The cardiac silhouette is within normal size limits. The pulmonary vasculature is unremarkable in appearance. IMPRESSION: Mild right lung consolidation. Interpreted By: Cody Ferroreliminary Report By: Cody Ferro MDElectronically Signed By: Cody Ferro MD Dictated Date: 07/27/2017 10:01:40 AM Prelim Date: 07/27/2017 10:01:40 AM Sign Date: 07/27/2017 10:02:43 AM Normal [facility] ([place]) .Auto Diffon 06-16-2017 Basophils Auto #/vol (Bld) 0.10 10 3/mcL Normal 0.00-0.19 [facility] ([place]) Comment on above: Performed By: #### C BC, ADIFF, ANEU, TROP, PBNP, GFR, CMP ####[address] [place], [place] [address] Basophils/100 WBC Auto (Bld) 0.6 % Normal 0.0-2.5 [facility] ([place]) Comment on above: Performed By: #### C BC, ADIFF, ANEU, TROP, PBNP, GFR, CMP ####[address] [place], [place] [address] Eosinophils 0.40 10 3/mcL Normal 0.00-0.40 [facility] ([place]) Comment on above: Performed By: #### C BC, ADIFF, ANEU, TROP, PBNP, GFR, CMP ####[address] [place], [place] [address] Eosinophils/100 leukocytes 3.9 % Normal 0.0-7.0 [facility] ([place]) Comment on above: Performed By: #### C BC, ADIFF, ANEU, TROP, PBNP, GFR, CMP ####[address] [place], [place] [address] Lymphocytes 2.30 10 3/mcL Normal 0.77-3.85 [facility] ([place]) Comment on above: Performed By: #### C BC, ADIFF, ANEU, TROP, PBNP, GFR, CMP ####[address] [place], [place] [address] Lymphocytes/100 leukocytes 23.8 % Normal 10.0-50.0 [facility] ([place]) Comment on above: Performed By: #### C BC, ADIFF, ANEU, TROP, PBNP, GFR, CMP ####[address] [place], [place] [address] Monocytes 0.40 10 3/mcL Normal 0.15-1.00 [facility] ([place]) Comment on above: Performed By: #### C BC, ADIFF, ANEU, TROP, PBNP, GFR, CMP ####[address] [place], [place] [address] Monocytes/100 leukocytes 4.4 % Normal 1.7-13.0 [facility] ([place]) Comment on above: Performed By: #### C BC, ADIFF, ANEU, TROP, PBNP, GFR, CMP ####[address] [place], [place] [address] Neutrophils/100 WBC Auto (Bld) 67.3 % Normal 37.0-80.0 [facility] ([place]) Comment on above: Performed By: #### C BC, ADIFF, ANEU, TROP, PBNP, GFR, CMP ####[address] [place], [place] [address] .GFRon 06-16-2017 eGFR (non-black) mL/min/{1.73_m2} Normal [facility] ([place]) Comment on above: Result Comment: GFR Population mean for , Non- Americans Ages 20-29 = 116 mL/min/1.73 sq.m. Ages 30-39 = 107 mL/min/1.73 sq.m. Ages 40-49 = 99 mL/min/1.73 sq.m. Ages 50-59 = 93 mL/min/1.73 sq.m. Ages 60-69 = 85 mL/min/1.73 sq.m. Ages 70+ = 75 mL/min/1.73 sq.m.Chronic Kidney Disease: Less than 60 mL/min/1.73 square metersEnd Stage Renal Disease: Less than 15 mL/min/1.73 square meters Performed By: #### C BC, ADIFF, ANEU, TROP, PBNP, GFR, CMP ####[address] [place], [place] [address] eGFR (non-black) 85 ml/min/1.73sqm Normal A [facility] ([place]) Comment on above: Result Comment: GFR Population mean for , Non- Americans Ages 20-29 = 116 mL/min/1.73 sq.m. Ages 30-39 = 107 mL/min/1.73 sq.m. Ages 40-49 = 99 mL/min/1.73 sq.m. Ages 50-59 = 93 mL/min/1.73 sq.m. Ages 60-69 = 85 mL/min/1.73 sq.m. Ages 70+ = 75 mL/min/1.73 sq.m.Chronic Kidney Disease: Less than 60 mL/min/1.73 square metersEnd Stage Renal Disease: Less than 15 mL/min/1.73 square meters Performed By: #### C BC, ADIFF, ANEU, TROP, PBNP, GFR, CMP ####[address] [place], [place] [address] .NEUABSon 06-16-2017 Neutrophils 6.50 10 3/mcL High 2.85-6.16 [facility] ([place]) Comment on above: Performed By: #### C BC, ADIFF, ANEU, TROP, PBNP, GFR, CMP ####[address] [place], [place] [address] CBCon 06-16-2017 Erythrocyte distribution width Auto Ratio (RBC) 14.8 % High 11.5-14.5 [facility] ([place]) Comment on above: Performed By: #### C BC, ADIFF, ANEU, TROP, PBNP, GFR, CMP ####[address] [place], [place] [address] Erythrocytes (RBC) 4.31 10 6/mcL Normal 4.20-5.40 [facility] ([place]) Comment on above: Performed By: #### C BC, ADIFF, ANEU, TROP, PBNP, GFR, CMP ####[address] [place], [place] [address] Hematocrit (HCT) 39.7 % Normal 37.0-47.0 [facility] ([place]) Comment on above: Performed By: #### C BC, ADIFF, ANEU, TROP, PBNP, GFR, CMP ####[address] [place], [place] [address] Hemoglobin mass conc (Bld) 13.0 G/dL Normal 12.0-16.0 [facility] ([place]) Comment on above: Performed By: #### C BC, ADIFF, ANEU, TROP, PBNP, GFR, CMP ####[address] [place], [place] [address] MCH 30.1 pg Normal 27.0-31.2 [facility] ([place]) Comment on above: Performed By: #### C BC, ADIFF, ANEU, TROP, PBNP, GFR, CMP ####[address] [place], [place] [address] MCHC mass conc (RBC) 32.7 G/dL Low 33.0-37.0 [facility] ([place]) Comment on above: Performed By: #### C BC, ADIFF, ANEU, TROP, PBNP, GFR, CMP ####[address] [place], [place] [address] MCV 92.0 fL Normal 80.0-94.0 [facility] ([place]) Comment on above: Performed By: #### C BC, ADIFF, ANEU, TROP, PBNP, GFR, CMP ####[address] [place], [place] [address] Platelet mean volume (PMV) 8.0 fL Normal 7.4-10.4 [facility] ([place]) Comment on above: Performed By: #### C BC, ADIFF, ANEU, TROP, PBNP, GFR, CMP ####[address] [place], [place] [address] Platelets 269 10 3/mcL Normal 130-400 [facility] ([place]) Comment on above: Performed By: #### C BC, ADIFF, ANEU, TROP, PBNP, GFR, CMP ####[address] [place], [place] [address] WBC (Leukocytes) 9.70 10 3/mcL Normal 4.60-10.80 [facility] ([place]) Comment on above: Performed By: #### C BC, ADIFF, ANEU, TROP, PBNP, GFR, CMP ####[address] [place], [place] [address] CMPon 06-16-2017 Alanine aminotransferase (ALT) 16 U/L Normal 10-35 [facility] ([place]) Comment on above: Performed By: #### C BC, ADIFF, ANEU, TROP, PBNP, GFR, CMP ####[address] [place], [place] [address] Albumin/Globulin Ratio 1.5 {ratio} Normal 1.1-2.5 A [facility] ([place]) Comment on above: Performed By: #### C BC, ADIFF, ANEU, TROP, PBNP, GFR, CMP ####[address] [place], [place] [address] Alk Phos 72 IU/L Normal 40-135 [facility] ([place]) Comment on above: Performed By: #### C BC, ADIFF, ANEU, TROP, PBNP, GFR, CMP ####[address] [place], [place] [address] Aspartate aminotransferase (AST) 16 U/L Normal 10-40 [facility] ([place]) Comment on above: Performed By: #### C BC, ADIFF, ANEU, TROP, PBNP, GFR, CMP ####[address] [place], [place] [address] Bili Total 0.2 mg/dL Normal 0.2-1.0 [facility] ([place]) Comment on above: Performed By: #### C BC, ADIFF, ANEU, TROP, PBNP, GFR, CMP ####[address] [place], [place] [address] Globulin 2.6 G/dL Normal [facility] ([place]) Comment on above: Performed By: #### C BC, ADIFF, ANEU, TROP, PBNP, GFR, CMP ####[address] [place], [place] [address] Glucose mass conc 110 mg/dL High 70-105 [facility] ([place]) Comment on above: Performed By: #### C BC, ADIFF, ANEU, TROP, PBNP, GFR, CMP ####[address] [place], [place] [address] Protein 6.6 G/dL Normal 6.0-8.3 [facility] ([place]) Comment on above: Performed By: #### C BC, ADIFF, ANEU, TROP, PBNP, GFR, CMP ####[address] [place], [place] [address] Chloride 102 mmol/L Normal 98-107 [facility] ([place]) Comment on above: Performed By: #### C BC, ADIFF, ANEU, TROP, PBNP, GFR, CMP ####[address] [place], [place] [address] Electrolyte Balance 8.0 mEq/L Normal [facility] ([place]) Comment on above: Performed By: #### C BC, ADIFF, ANEU, TROP, PBNP, GFR, CMP ####[address] [place], [place] [address] Potassium molar conc 3.7 mmol/L Normal 3.5-5.1 [facility] ([place]) Comment on above: Performed By: #### C BC, ADIFF, ANEU, TROP, PBNP, GFR, CMP ####[address] [place], [place] [address] BUN/Creatinine Ratio 8 ratio Normal 7-27 [facility] ([place]) Comment on above: Performed By: #### C BC, ADIFF, ANEU, TROP, PBNP, GFR, CMP ####[address] [place], [place] [address] Calcium 8.8 mg/dL Normal 8.4-10.2 [facility] ([place]) Comment on above: Performed By: #### C BC, ADIFF, ANEU, TROP, PBNP, GFR, CMP ####[address] [place], [place] [address] Creatinine 0.9 mg/dL Normal 0.6-1.2 [facility] ([place]) Comment on above: Performed By: #### C BC, ADIFF, ANEU, TROP, PBNP, GFR, CMP ####[address] [place], [place] [address] Albumin 4.0 G/dL Normal 3.5-5.0 [facility] ([place]) Comment on above: Performed By: #### C BC, ADIFF, ANEU, TROP, PBNP, GFR, CMP ####[address] [address] CO2 29 mmol/L Normal 22-29 [facility] ([place]) Comment on above: Performed By: #### C BC, ADIFF, ANEU, TROP, PBNP, GFR, CMP ####[address] [place], [place] [address] Sodium 139 mmol/L Normal 136-146 [facility] ([place]) Comment on above: Performed By: #### C BC, ADIFF, ANEU, TROP, PBNP, GFR, CMP ####[address] [place], [place] [address] Urea nitrogen 6.8 mg/dL Low 7.0-18.0 [facility] ([place]) Comment on above: Performed By: #### C BC, ADIFF, ANEU, TROP, PBNP, GFR, CMP ####[address] [place], [place] [address] [facility] Note on 06-16-2017 [facility] Note Normal [facility]) PBNPon 06-16-2017 BNP pg/mL Normal 5.0-300.0 [facility] ([place]) Comment on above: Result Comment: Belo w measuring rangeIn the presence of acute dyspnea, CHF likely if:Age <50 years: >450 pg/mLAge 50-75 years: >900 pg/mLAge >75 years: >1800 pg/mL Performed By: #### C BC, ADIFF, ANEU, TROP, PBNP, GFR, CMP ####[address] [place], [place] [address] Patient Summary Documentson 06-16-2017 Patient Summary Documents Normal [facility]) TROPon 06-16-2017 Troponin I.cardiac mass conc ng/mL Normal 0.00-0.30 [facility] ([place]) Comment on above: Result Comment: Belo w measuring range>=0.30 Consistent with cardiac damage, increased clinical risk and possibility of myocardial infarction. Serial measurements, clinical history, appropriate symptoms and/or ECG changes may help assess possibility of TX.*Other non-acute coronary syndrome conditions such as CHF, myocarditis, pulmonary emboli, sepsis and cardiac surgery could result in myocardial damage and increased troponin levels. Performed By: #### C BC, ADIFF, ANEU, TROP, PBNP, GFR, CMP ####[address] [place], [place] [address] XR CHEST 2 VIEWSon 8 XR CHEST 2 VIEWS ORIGINALXR CHEST 2 V IEWS CLINICAL STATEMENT: SOB, CP COMPARISON: None FINDINGS:Cardiac contours are normal. There is no acute infiltrate or consolidation noted. No vascular congestion is present. The bony thorax is intact IMPRESSION:No acute process Interpreted By: Elissa Rudd MDPreliminary Report By: Elissa Rudd MDElectronically Signed By: Elissa Rudd MD Dictated Date: 06/16/2017 3:07:18 PM Prelim Date: 06/16/2017 3:07:18 PM Sign Date: 06/16/2017 3:11:26 PM Normal [facility] ([place]) [facility] 04-24-2017 [facility] Letter TextPhone: Healuisa [address] [id number] #: [id number] ,Due to a change in the provider's schedule it has been necessary toreschedule your Appointment.Your original appointment was scheduled for 08/29/2017 at 9:00 AM with Parminder Sandoval MD.Your new appointment is now scheduled on 08/29/2017 at 2:00 PM with Parminder Sandoval MD.If this new appointment is not convenient for you, please contact our officeat [phone].Thank you for choosing the [facility] as your Healthcare Provider.Sincerely,Family MedicineAppointment Office Normal [facility] 04-08-2017 [facility] HNO ID: [id number] thor: Mammography CoordinatorService: (none)Author Type: PhysicianType: LetterFiled: 04/10/2017 11:35 PMNote Text:April 08, 2017 PID: [id number] [address], [place] [address]Ectf Ms. Aldridge,We are pleased to inform you that the results of your recent breastimaging exam on 04/07/2017 are normal. Early detection of cancer is veryimportant. We also understand recommendations regarding breast cancerscreening are controversial. Please discuss with your primary careprovider which strategy is best for you and whether a mammogram is rightfor you.Your imaging studies and report will be [facility] part of [facility] permanent medical record and are available for yourcontinuing care.Thank you for allowing us to help in meeting your health care needs.Sincerely,Dr. Reevesterpreting RadiologistWSilver Lake Medical Center, [facility] (Normal over 40) Normal [facility] SCREENINGon 04-07-2017 [facility] SCREENING * * *Final Report* * * * SEE BOTTOM OF REPORT FOR ADDENDED TEXT * * *DATE OF EXAM: Apr 07 2017 4:24PM [facility] [id number] - [facility] SCREENING / REASON: Encounter for screening mammogram for malignant neoplasm of breast * * * * Physician Interpretation * * * *RESULT: #[id number] - JYOTI SCREENINGBILATERAL DIGITAL SCREENING MAMMOGRAM WITH CAD: 04/07/2017HISTORY: Encounter For Screening Mammogram For Malignant Neoplasm Of Breast\\ Screening Mammogram - patient reports NO breast symptoms /priors available for comparison /SEE TECH NOTE.RESULT:TECHNIQUE: The study was acquired using full field digital technology and interpreted from soft copy.Current study was also evaluated with a Computer Aided Detection (CAD).Comparison is made to exam dated: 07/02/2012 mammogram.The tissue of both breasts is predominantly fatty.No significant masses, calcifications, or other findings are seen in either breast.There has been no significant interval change.IMPRESSION: NEGATIVEThere is no mammographic evidence of malignancy.A 1 year screening mammogram is recommended.Macey Velez/renee:04/08/2017 08:24:14Imaging Technologist: Rema CRAIN(Radha)(Елена), [facility] Hospitalletter sent: Normal over 40Mammogram BI-RADS: 1 NegativeTranscriptionist: ReneeTranscribduy Date/Time: Apr 07 2017 4:25PDictated by: Dinora GALEAS examination was interpreted and the report reviewed and electronically signed by: MACEY BAUTISTA MD on Apr 08 2017 8:24AM ESTThis document has been addended by: MACEY BAUTISTA MD on Apr 08 2017 8:24AM [id number] Normal [facility] CNOVon 03-03-2017 CNOV Office Visit (FAMPWS) KATHARINE ALDRIDGE ([id number]) 1975 FDate Time Provider Department03/03/17 8:00 AM WICHO SANTOS (CHIP) FAMPWS During your visit today, we recorded the following information about you: Temperature Pulse Respiration Blood pressure 98.6 degrees 88/minute 20/minute 132/84 Weight Height 142 kg 1.727 J Luis Santos CNP, CHIP 03/03/2017 8:57 AM SignedChief ComplaintPatient presents with:Refill RequestHPIHbernardaluisa ALDRIDGE is a 41 year old female who presents here today for AboveComplaints..Patient of Dr. Walker. Recently retired. Wants to establish with Dr. Hensley. History is documented below. Doing well overall. States that he had afibromyalgia flare recently, but it improved by today's appointment.Requesting Cymbalta refill. Needs mammogram order. Would like for me to lookat skin lesions today.Past medical history, appointments, medications, allergies reviewed.Previous Medical HistoryPAST MEDICAL HISTORYDiagnosis Date- Depression- Fibromyalgia- Hypoglycemia, unspecified Hypoglycemia- Mixed hyperlipidemia HyperlipidemiaPrevious Surgical HistoryPAST SURGICAL HISTORYProcedure Laterality Date- DEBRIDE SKIN AND SUBQ TISSU 11/08/05- INCISE/DRAIN TEAR SAC 1984 I ANDamp; d lacrimal sac- LIGATE FALLOPIAN TUBE 2000 Tubal ligation- REMOVAL GALLBLADDER 1993 CholecystectomyFamily HistoryFAMILY HISTORYProblem Relation Age of Onset- Hypertension Mother- Cancer Mother- Stroke Father 2008- Heart Father- Other [OTHER] Brother MVA 1991Patient AllergiesALLERGIESNo Known AllergiesCurrent MedicationsNo current outpatient prescriptions on file prior to visit.No current facility-administered medications on file prior to visit.Social HistorySocial History Marital status: Single Spouse name: Years of education: Number of children:Social History Main Topics Smoking status: Current Every Day Smoker Packs/day: 1.00 Years: 26.00 Types: Cigarettes Smokeless status: Never Used Alcohol use: No Drug use: No Sexual activity: NoReview of SymptomsREVIEW OF SYSTEMSPAIN ASSESSMENT: HISTORY OF CHRONIC PAIN OR CURRENTLY BEING TREATED FOR ACHRONIC PAIN CONDITION: NoGENERAL: No weight loss, malaise or feversSkin: See HPINECK: Negative for lumps, goiter, pain and significant neck swellingRESPIRATORY: Negative for cough, hemoptysis, wheezing, COPD, dyspnea orshortness of breathCARDIOVASCULAR: Negative for chest pain, hypertension, CHF or palpitations;Intermittent leg swelling.GI: No nausea, vomiting, or diarrheaPSYCH: See HPINEURO: No history of syncope, paralysis, seizures or tremors; IntermittentheadachesEXAM :BP 132/84 Pulse 88 Temp 37 ?C (98.6 ?F) (Tympanic) Resp 20 Ht 172.7 cm(5' 8ANDquot;) Wt (!) 142 kg (313 lb) BMI 47.59 kg/u7Xgiwwjb Appearance: Well appearing, alert, in no acute distress, well-hydrated,well nourished..Skin: Large common wart on the medial aspect of the right 5th digit. Numerouslesion representing seborrheic keratosis located on the right and leg forearm.Right forearm has a small area of dry skin.Head: Normocephalic, no masses, lesions, tenderness or abnormalities.Neck: Supple, no adenopathy; thyroid symmetric, normal size, no bruits.Lungs: Lungs clear to auscultation. No wheezing, rhonchi, rales.Heart: RRR without murmur, gallop, or rubs. No ectopy.Abdomen: Normal abdominal exam, Abdomen soft, non-tender. Bowel sounds normal.No masses, organomegaly.Extremities: No deformities, edema.Lymph Nodes: No cervical lymphadenopathy and No supraclavicular lymphadenopathy.Health Maintenance ListTETANUS due on 1985ONE PNEUMOVAX PRIOR TO AGE 65 due on 1993PAP EVERY 5 YEARS due on 2004HPV EVERY 5 YEARS due on 2004MAMMOGRAM due on 2014RAE StrongData reviewedNone available for review.ASSESSMENT/PLAN:1. Bipolar affective disorder, remission status unspecified (HCC) - ICD9:296.80, ICD10: F31.9 (primary diagnosis)- Stable. Continue current medication- FLUOXETINE 20 MG CAPSULE2. Fibromyalgia - ICD9: 729.1, ICD10: M79.7- Stable. Minimal pain today. Will continue current medication.- DULOXETINE 30 MG CAPSULE,DELAYED RELEASE3. Skin lesion - ICD9: 709.9, ICD10: L98.9- Multiple areas of seborrheic keratosis, patient requesting to see adermatologist for further evaluation.- CONSULT TO DERMATOLOGY4. Screening for breast cancer - ICD9: V76.10, ICD10: Z12.31- JYOTI SCREENING5. Hypothyroidism, acquired - ICD9: 244.9, ICD10: E03.9- Instructed patient on importance of taking on an empty stomach either firstthing in the morning or at bedtime.- LEVOTHYROXINE 150 MCG TABLET6. Bipolar affective disorder in remission (HCC) - ICD9: 296.80, ICD10: F31.70- Stable continue current medications7. Dry skin - ICD9: 701.1, ICD10: L85.3- Will start with mild potency steroid cream.- TRIAMCINOLONE ACETONIDE 0.1 % TOPICAL CREAM8. Common wart - ICD9: 078.19, ICD10: B07.8- 2 rounds of Cryotherapy to the right 5th digit with 45 second break.Patient tolerated with minimal pain.Follow up in 6 months. Sooner if problems arise. Patient states that sherecently had lab work completed. Patient signed records request. Patient willmake an establishing appointment with Dr. Hensley.Mariana Reyes CNP, CNP 03/03/2017 10:01 AM SignedAddended by: WICHO SANTOS CNP on: 03/03/2017 10:01 AM Modules accepted: OrdersReferring Provider: SELF [[id number]]Allergies As of Date: 03/03/2017(No Known Allergies)Date Reviewed: 03/03/2017Reviewed by: Wicho (Chip) CHIP Santos - Fully AssessedReason for Visit: Refill Request [508]Primary Visit Diagnosis:Bipolar affective disorder, remission status unspecified (HCC) [F31.9] Other Visit Diagnoses:Fibromyalgia [M79.7] Skin lesion [L98.9] Screening for breast cancer [Z12.31] Hypothyroidism, acquired [E03.9] Bipolar affective disorder in remission (HCC) [F31.70] Dry skin [L85.3] Common wart [B07.8]Order(s):FLUoxetin e (PROZAC) 20 mg capsuleTake 3 capsules by mouth once daily. 60 mg at bedtimeDisp: Rfl: 0 levothyroxine (SYNTHROID) 150 mcg tabletTake 1 tablet by mouth daily before breakfast.Disp: Rfl: 0 JYOTI SCREENING [[id number]] Order #: [id number] FUTURE CONSULT TO DERMATOLOGY [9006] Order #: [id number]: 1 DULoxetine (CYMBALTA) 30 mg capsuleTake 1 capsule by mouth once daily.Disp: 30 capsuleRfl: 5 triamcinolone acetonide (KENALOG) 0.1 % creamApply 1 application to affected area twice daily. Apply sparingly to area for rash/itching.Disp: 15 gRfl: 1Prescriptions as of 03/03/2017 Sig: FLUOXETINE 20 MG CAPSULE Take 3 capsules by mouth once* LEVOTHYROXINE 150 MCG TABLET Take 1 tablet by mouth daily * DULOXETINE 30 MG CAPSULE,JARRELL* Take 1 capsule by mouth once * TRIAMCINOLONE ACETONIDE 0.1 %* Apply 1 application to affect*Problem List As Of Date 03/03/2017 Noted Resolved HYPOGLYCEMIA NOS [E16.2] More... MIXED HYPERLIPIDEMIA [E78.2] More... BREAST ABSCESS [N61.0] INVALID FOR* Hypothyroidism, acquired [E03.9] INVALID FOR* Fibromyalgia [M79.7] INVALID FOR* Bipolar affective disorder in remission (HCC) [*INVALID FOR*Prescriptions ordered this encounter Disp Refills Start End FLUOXETINE 20 MG CAPSULE 0 03/03/2017 Class: Med Update Route: ORAL Sig: Take 3 capsules by mouth once daily. 60 mg at bedtime DULOXETINE 30 MG CAPSULE,DELAYED REL* 30 c* 5 03/03/2017 03/03/2017 Route: ORAL Sig: Take 1 capsule by mouth once daily. LEVOTHYROXINE 150 MCG TABLET 0 03/03/2017 Class: Med Update Route: ORAL Sig: Take 1 tablet by mouth daily before breakfast. TRIAMCINOLONE ACETONIDE 0.1 % TOPICA* 15 g 1 03/03/2017 03/03/2017 Route: TOPICAL Sig: Apply 1 application to affected area twice daily. Apply sparingly to area for rash/itching. DULOXETINE 30 MG CAPSULE,DELAYED REL* 30 c* 5 03/03/2017 Route: ORAL Sig: Take 1 capsule by mouth once daily. TRIAMCINOLONE ACETONIDE 0.1 % TOPICA* 15 g 1 03/03/2017 Route: TOPICAL Sig: Apply 1 application to affected area twice daily. Apply sparingly to area for rash/itching.Medications Discontinued During This Encounter DULoxetine (CYMBALTA) 30 mg capsule 30 c* 5 03/03/2017 03/03/2017 Route: ORAL Sig: Take 1 capsule by mouth once daily. Disc: Reason for discontinue is not on file. triamcinolone acetonide (KENALOG) 0.* 15 g 1 03/03/2017 03/03/2017 Route: TOPICAL Sig: Apply 1 application to affected area twice daily. Apply sparingly to area for rash/itching. Disc: Reason for discontinue is not on file.Disposition: Return in about 6 months (around 08/31/2017).Follow-up and Disposition History Recorded Questionnair e: PHQ-9Little interest or pleasure in doing things -> 3 NEARLY EVERY DAYFeeling down, depressed, or hopeless -> 3Trouble falling or staying asleep, or sleeping too much -> 3Feeling tired or having little energy -> 3Poor appetite or overeating -> 3Feeling bad yourself-you are a failure or have let yourself or others -> 3Trouble concentrating, like reading the paper or watching TV -> 1Moving/speaking slowly (others notice) OR being more fidgety/restless -> 0Thoughts that you would be better off or of hurting yourself -> 1PHQ TOTAL SCORE = -> 20PHQ problems effect on difficulty of work, home, and social activity: -> 1 - NOT DIFFICULT AT Irina Number: [id number] Status:Closed by WICHO SANTOS CNP on 03/03/17 [facility] PROGRESSon 03-03-2017 PROGRESS HNO ID: [id number] thor: Wicho (Chip) Jax Santos: (none)Author Type: Nurse PractitionerType: Progress NotesFiled: 03/03/2017 8:57 AMNote Text:Chief ComplaintPatient presents with:Refill RequestHPIHbernardaluisa ALDRIDGE is a 41 year old female who presents here today for AboveComplaints..Patient of Dr. Walker. Recently retired. Wants to establish with . History is documented below. Doing well overall. Statesthat he had a fibromyalgia flare recently, but it improved by today'sappointment. Requesting Cymbalta refill. Needs mammogram order. Wouldlike for me to look at skin lesions today.Past medical history, appointments, medications, allergies reviewed.Previous Medical HistoryPAST MEDICAL HISTORYDiagnosis Date- Depression- Fibromyalgia- Hypoglycemia, unspecified Hypoglycemia- Mixed hyperlipidemia HyperlipidemiaPrevious Surgical HistoryPAST SURGICAL HISTORYProcedure Laterality Date- DEBRIDE SKIN AND SUBQ TISSU 11/08/05- INCISE/DRAIN TEAR SAC 1984 I AND d lacrimal sac- LIGATE FALLOPIAN TUBE 2000 Tubal ligation- REMOVAL GALLBLADDER 1993 CholecystectomyFamily HistoryFAMILY HISTORYProblem Relation Age of Onset- Hypertension Mother- Cancer Mother- Stroke Father 2009- Heart Father- Other [OTHER] Brother MVA 1991Patient AllergiesALLERGIESNo Known AllergiesCurrent MedicationsNo current outpatient prescriptions on file prior to visit.No current facility-administered medications on file prior to visit.Social HistorySocial History Marital status: Single Spouse name: Years of education: Number of children:Social History Main Topics Smoking status: Current Every Day Smoker Packs/day: 1.00 Years: 26.00 Types: Cigarettes Smokeless status: Never Used Alcohol use: No Drug use: No Sexual activity: NoReview of SymptomsREVIEW OF SYSTEMSPAIN ASSESSMENT: HISTORY OF CHRONIC PAIN OR CURRENTLY BEING TREATED FOR ACHRONIC PAIN CONDITION: NoGENERAL: No weight loss, malaise or feversSkin: See HPINECK: Negative for lumps, goiter, pain and significant neck swellingRESPIRATORY: Negative for cough, hemoptysis, wheezing, COPD, dyspnea orshortness of breathCARDIOVASCULAR: Negative for chest pain, hypertension, CHF orpalpitations; Intermittent leg swelling.GI: No nausea, vomiting, or diarrheaPSYCH: See HPINEURO: No history of syncope, paralysis, seizures or tremors;Intermittent headachesEXAM:BP 132/84 Pulse 88 Temp 37 ?C (98.6 ?F) (Tympanic) Resp 20 Ht172.7 cm (5' 8") Wt (!) 142 kg (313 lb) BMI 47.59 kg/d9Mlkvqip Appearance: Well appearing, alert, in no acute distress,well-hydrated, well nourished..Skin: Large common wart on the medial aspect of the right 5th digit.Numerous lesion representing seborrheic keratosis located on the right andleg forearm. Right forearm has a small area of dry skin.Head: Normocephalic, no masses, lesions, tenderness or abnormalities.Neck: Supple, no adenopathy; thyroid symmetric, normal size, no bruits.Lungs: Lungs clear to auscultation. No wheezing, rhonchi, rales.Heart: RRR without murmur, gallop, or rubs. No ectopy.Abdomen: Normal abdominal exam, Abdomen soft, non-tender. Bowel soundsnormal. No masses, organomegaly.Extremities: No deformities, edema.Lymph Nodes: No cervical lymphadenopathy and No supraclavicularlymphadeno joya.Health Maintenance ListTETANUS due on 1985ONE PNEUMOVAX PRIOR TO AGE 65 due on 1993PAP EVERY 5 YEARS due on 2004HPV EVERY 5 YEARS due on 2004MAMMOGRAM due on 2014INFLUENZA CompletedData reviewedNone available for review.ASSESSMENT/PLAN:1. Bipolar affective disorder, remission status unspecified (HCC) - ICD9:296.80, ICD10: F31.9 (primary diagnosis)- Stable. Continue current medication- FLUOXETINE 20 MG CAPSULE2. Fibromyalgia - ICD9: 729.1, ICD10: M79.7- Stable. Minimal pain today. Will continue current medication.- DULOXETINE 30 MG CAPSULE,DELAYED RELEASE3. Skin lesion - ICD9: 709.9, ICD10: L98.9- Multiple areas of seborrheic keratosis, patient requesting to see adermatologist for further evaluation.- CONSULT TO DERMATOLOGY4. Screening for breast cancer - ICD9: V76.10, ICD10: Z12.31- JYOTI SCREENING5. Hypothyroidism, acquired - ICD9: 244.9, ICD10: E03.9- Instructed patient on importance of taking on an empty stomach eitherfirst thing in the morning or at bedtime.- LEVOTHYROXINE 150 MCG TABLET6. Bipolar affective disorder in remission (HCC) - ICD9: 296.80, ICD10:F31.70- Stable continue current medications7. Dry skin - ICD9: 701.1, ICD10: L85.3- Will start with mild potency steroid cream.- TRIAMCINOLONE ACETONIDE 0.1 % TOPICAL CREAM8. Common wart - ICD9: 078.19, ICD10: B07.8- 2 rounds of Cryotherapy to the right 5th digit with 45 second break.Patient tolerated with minimal pain.Follow up in 6 months. Sooner if problems arise. Patient states that sherecently had lab work completed. Patient signed records request. Arlene make an establishing appointment with Dr. Hensley.Wicho Santos, CHIP Normal [facility] Office Visiton 01-09-2017 Documentation of current medications (procedure) Done Invalid Interpretation Code [facility] Work Phone: Tobacco use [facility] Current every day smoker Invali d Interpretation Code [facility] Work Phone: Office Visiton 12-30-2016 Protein mass conc Done [facility] Work Phone: Tobacco smoking status NHIS Current every day smoker [facility] Work Phone: Office Visiton 09-02-2016 Protein mass conc Done [facility] Work Phone: Tobacco smoking status NHIS Current every day smoker [facility] Work Phone: Vital Signs Date Time Vital Sign Value Performing Clinician Facility 12-23-2024 13:39-0400 Body temperature 98.3 [degF] Dr. Talon Enciso MD Work Phone: [facility] 12-23-2024 13:39-0400 Diastolic blood pressure 88 mm[Hg] Dr. Talon Enciso MD Work Phone: [facility] 12-23-2024 13:39-0400 Heart rate 71 /min Dr. Talon Enciso MD Work Phone: [facility] 12-23-2024 13:39-0400 Respiratory rate 16 /min Dr. Talon Enciso MD Work Phone: [facility] 12-23-2024 13:39-0400 SaO2% (BldA) [Mass fraction] 99 % Dr. Talon Enciso MD Work Phone: [facility] 12-23-2024 13:39-0400 Systolic blood pressure 131 mm[Hg] Dr. Talon Enciso MD Work Phone: [facility] 12-23-2024 10:42-0400 Body height 172.[address] Talon Enciso MD Work Phone: [facility] 12-23-2024 10:42-0400 Body mass index (BMI) [Ratio] 44 kg/m2 Dr. Talon Enciso MD Work Phone: [facility] 12-23-2024 10:42-0400 Body weight 131.[address] Talon Enciso MD Work Phone: [facility] 08-26-2023 08:31-0400 Body height 172.[address] Talon Enciso Work Phone: [facility] 08-26-2023 08:31-0400 Body mass index (BMI) [Ratio] 44.6 kg/m2 Dr. Talon Enciso Work Phone: [facility] 08-26-2023 08:31-0400 Body weight 133.[address] Talon Enciso Work Phone: [facility] 08-26-2023 08:31-0400 Diastolic blood pressure 94 mm[Hg] Dr. Talon Enciso Work Phone: [facility] 08-26-2023 08:31-0400 Respiratory rate 18 /min Dr. Talon Enciso Work Phone: [facility] 08-26-2023 08:31-0400 Systolic blood pressure 164 mm[Hg] Dr. Talon Enciso Work Phone: [facility] 06-07-2016 15:11-0500 BMI (Body Mass Index) 48.65 kg/m2 [facility] Work Phone: 06-07-2016 15:11-0500 Height 172.72 cm [facility] Work Phone: 06-07-2016 15:11-0500 Weight 145.15 kg [facility] Work Phone: Encounters Encounter Date Encounter Type Care Provider Facility Start: 12-23-2024 End: 12-23-2024 Emergency department patient visit Dr. Talon Enciso MD Work Phone: -Emergency Department Work Phone: Start: 12-22-2024 End: 12-22-[address] Talon Enciso MD Work Phone: -[facility] Start: 12-22-2024 End: 12-22-[address] Talon Enciso MD -[facility] Work Phone: Start: 12-22-2024 End: 12-22-2024 ambulatory Talon Enciso Facility:[facility] Start: 11-18-2024 End: 11-18-[address] Talon Enciso MD Work Phone: [facility] Work Phone: Start: 11-18-2024 End: 11-18-[address] Talon Enciso MD -Laboratory [facility] Quinn Start: 11-18-2024 End: 11-18-2024 ambulatory Talon Enciso Facility:[facility] Start: 06-22-2024 End: 06-22-2024 ambulatory Jw Lionel SIEGEL Facility:[facility] Start: 06-01-2024 End: 06-01-2024 ambulatory Rodolfo Linares Facility:[facility] Start: 04-14-2024 Encounter for other specified special examinations Vladimir WAYNE [facility] Start: 04-14-[address] Danish Enciso MD Work Phone: [facility] Start: 04-14-2024 End: 04-14-2024 ambulatory Vladimir WAYNE Facility:[facility] Start: 02-02-2024 End: 02-02-2024 ambulatory Talon Enciso Facility:[facility] Start: 01-07-2024 End: 01-07-2024 ambulatory Talon Enciso Facility:[facility] Start: 08-26-2023 End: 08-26-[address] Talon Enciso Work Phone: [facility] Work Phone: Start: 08-23-2023 End: 08-23-[address] Talon Enciso Work Phone: [facility] Work Phone: Start: 08-23-2023 End: 08-23-[address] Talon Enciso Work Phone: [facility]Labor[facility] Work Phone: Start: 08-06-2023 End: 08-06-2023 ambulatory [facility] Work Phone: Start: 08-06-2023 End: 08-06-2023 Patient encounter procedure [facility] Work Phone: Start: 07-25-2023 End: 07-25-2023 ambulatory [facility] Work Phone: Start: 07-25-2023 End: 07-25-2023 Patient encounter procedure [facility] Work Phone: Start: 06-25-2023 End: 06-25-2023 ambulatory [facility] Work Phone: Start: 06-25-2023 End: 06-25-2023 Patient encounter procedure [facility] Start: 04-19-2022 End: 04-19-2022 ambulatory [facility] Work Phone: Start: 04-19-2022 End: 04-19-2022 Patient encounter procedure [facility] Start: 10-26-2021 End: 10-26-2021 Patient encounter procedure [facility], Specimen Start: 10-10-2021 End: 10-10-[address] Talon Enciso Work Phone: [facility] Start: 06-19-2021 End: 06-19-[address] [facility] Start: 07-27-2017 End: 07-27-2017 Emergency department patient visit LANDRY RAMIREZ Facility:B Start: 06-16-2017 End: 06-16-2017 Emergency department patient visit EVANGELINA INTERIANO Facility:[facility] Start: 04-07-2017 End: 04-07-2017 Ambulatory WICHO ([facility]) [facility] Start: 03-03-2017 End: 03-03-2017 Ambulatory WICHO ([employer]) [facility] Procedures Date Procedure Procedure Detail Performing Clinician Start: 12-23-[address] Talon Enciso MD Work Phone: Start: 12-22-2024 Plain x-ray of pelvis and lower extremity Dr. Talon Enciso MD Work Phone: Start: 08-06-2023 Bilateral mammography Start: 08-06-2023 Ultrasonography of breast Start: 09-02-2016 End: 09-15-2016 Drain/inject, joint/bursa Rodolfo Sheth Work Phone: Start: 06-07-2016 End: 06-17-2016 Drain/inject, joint/bursa Rodolfo Sheth Work Phone: H/O: tubal ligation History of tubal liga tion Dr. Talon Enciso Work Phone: History of cholecystectomy History of cholecystectomy Dr. Talon Enciso Work Phone: Plan of Treatment Date Care Activity Detail Author Start: 12-23-2024 [facility] Start: 01-09-2017 End: 01-09-2017 Appointment Appointment [facility] Work Phone: Start: 12-30-2016 End: 12-30-2016 Mri joint upr extrem w/o dye MRI Joint Upper Extremity [facility] Work Phone: Start: 07-31-2016 End: 07-31-2016 Physical Therapy General Physical Therapy [facility], [address] [place] [address], [id number] [facility] Work Phone: Start: 07-22-2016 End: 07-22-2016 X-ray exam of shoulder X-Ray, Shoulder [facility] Work Phone: Patient Education [facility] Work Phone: Payers Date Payer Category Payer Self-pay [id number] 2023 Unknown [id number] 2016 Unknown [id number] Unknown [id number] 2.16.8 [id number] Unknown [id number] 2.16.8 [id number] Unknown [id number] 2.16.8 [id number] Unknown [id number] 2.16.8 [id number] Unknown [id number] 2.16.8 [id number] Unknown [id number] 2.16.8 [id number] Unknown [id number] 2.16.8 [id number] Unknown [id number] 2.16.8 [id number] Unknown [id number] 2.16.8 [id number] Social History Date Type Detail Facility Start: 11-02-2020 End: 08-26-2023 Tobacco smoking status [facility] Unknown if ever smoked [facility] Start: 11-02-2020 Cigarettes [facility] Start: 1975 Sex Assigned At Female [facility] Start: 08-26-2023 End: 12-23-2024 Tobacco smoking status VAIS Smokes tobacco daily (finding) [facility] Medical Equipment Procedure Code Equipment Code Equipment Origin al Text Equipment Identifier Dates Repair, hernia, incisional, with mesh insertion MESH,VENTLEX [facility] 6.4CM FDA Start: 10-19-2020 Repair, hernia, incisional, with mesh insertion MESH,VENTLEX ST MED 6.4CM FDA Start: 10-19-2020 Repair, hernia, incisional, with mesh insertion MESH,VENTLEX ST MED 6.4CM FDA Start: 10-19-2020 Repair, hernia, incisional, with mesh insertion MESH,VENTLEX ST MED 6.4CM FDA Start: 10-19-2020 Repair, hernia, incisional, with mesh insertion MESH,VENTLEX [facility] MED 6.4CM FDA Start: 10-19-2020 Repair, hernia, incisional, with mesh insertion MESH,VENTLEX ST MED 6.4CM FDA Start: 10-19-2020 Repair, hernia, incisional, with mesh insertion MESH,VENTLEX ST MED 6.4CM FDA Start: 10-19-2020 Repair, hernia, incisional, with mesh insertion MESH,VENTLEX ST MED 6.4CM FDA Start: 10-19-2020 Repair, hernia, incisional, with mesh insertion MESH,VENTLEX [facility] MED 6.4CM FDA Start: 10-19-2020 Repair, hernia, incisional, with mesh insertion MESH,VENTLEX ST MED 6.4CM FDA Start: 10-19-2020 Mental Status Date Assessment Result Facility 12-23-2024 Cognitive function Level Of Cons ciousness Awake;Alert;Appropriate [facility] Work Phone: Radiology Diagnostic study note 12-23-2024 Note Date & Type Note Facility 12-23-2024 Radiology Diagnostic study note [facility] Imaging Services [address] [place], [place] [address] Hips B/L min 2 views w/ Pelvis MR#: [id number] Acct: [id number] Name: SO ALDRIDGE Rep #: [id number] : 1975 F 48 From: Sonia Christianson MD PCP: Dr. Talon Enciso MD Status: REG C LI Study:Hips B/L min 2 views w/ Pelvis Date of Exam: 12/22/24 Exam# [id number] Ordering Dr: Talon Enciso MD EXAM: XR Bilateral Hips With Pelvis When Performed, 2 or 3 Views CLINICAL INDICATION: PAIN TECHNIQUE: Three or four views of the bilateral hips with pelvis when performed. COMPARISON: No relevant prior studies available. FINDINGS: BONES/JOINTS: Mild degenerative change of the hip joints, bilaterally. No acute fracture. No dislocation. SOFT TISSUES: Unremarkable. RAD/Hips B/L min 2 views w/ Pelvis IMPRESSION: Degenerative changes as above. Reading [facility] CC: Dr. Talon Enciso MD ~ Clothing Pattern Preparer: Signed [facility] Evaluation note Note Date & Type Note Facility Evaluation note No assessment information availa ble [facility] Work Phone: Hospital Discharge instructions Note Date & Type Note Facility Hospital Discharge instructions Additional Instructions All of your blood work and EKG look normal. I suspect you may have been dehydrated. Rest, drink plenty fluids, return if any symptoms worsen. [facility] Work Phone: Reason for referral (narrative) Note Date & Type Note Facility Reason for referral (narrative) No reason for referral information available [facility] Work Phone: Summary Purpose Family History No Family History Records Found Relationship Condition Age at Onset Recorded Date/T benjamin father Cardiac disease Unknown Hypertension Unknown aunt Cardiac disease Unknown uncle Cardiac disease Unknown mother Malignant neoplasm Unknown Advance Directives No Advanced Directives Records Found Advance Directive Response Recorded Date/ Time Advance Directives No November 02 9:00am Living Will No November 02, 2020 9 :00am Power of Drug Safety Associate No November 02, 2020 9:00am Advance Directive Response Recorded Date/ Time Advance Directives No November 02 8:00am Living Will No November 02, 2020 8 :00am Power of Drug Safety Associate No November 02, 2020 8:00am Advance Directive Response Recorded Date/ Time Advance Directives No November 02 9:00am Advance Directive Response Recorded Date/ Time Do you have a Healthcare Power of Drug Safety Associate? No December 23, 2024 10:46am Advance Directives No November 02 9:00am Chief Complaint and Reason for Visit Chief Complaint COVID TEST Chief Complaint DISCHARGE Chief Complaint DISCHARGE cyst on breast Chief Complaint Admit Date XRAY BOTH HIPS 2 VIEWS December 22, 2024 4 :40pm dizziness December 23, 2024 10:4 1am Additional Source Comments INFORMATION SOURCE (unrecogn ized section and content) DATE CREATED AUTHOR 11/28/2017 [facility] ([place]) DATE CREATED AUTHOR AUTHOR'S ORGANIZ ATION 12/02/2017 [facility] DATE CREATED AUTHOR AUTHOR'S ORGANIZ ATION 2024 [facility] Goals (unrecognized section and content) Goals may be documented in a n alternate sectionGoals may be documented in an alternate sectionGoals may be documented in an alternate sectionGoals may be documented in an alternate sectionGoals may be documented in an alternate sectionGoals may be documented in an alternate sectionGoals may be documented in an alternate sectionGoals may be documented in an alternate sectionGoals may be documented in an alternate sectionGoals may be documented in an alternate section Care Teams (unrecognized sec tion and content) Team Status: Active Member Role Status Dates Dr. Talon Enciso MD Family Provider Active Dr. Talon Enciso MD Primary Care Provider Active Team Status: Inactive Member Role Status Dates Dr. Talon Enciso MD Primary Care Provider, Attending Provider Active Team Status: Inactive Member Role Status Dates Dr. Talon Enciso MD Primary Care Provi buzz, Attending Provider, Referring Provider Active Team Status: Inactive Member Role Status Dates Dr. Talon Enciso MD Primary Care Provider, Referring Provider Active Dr. Lillian Gallo MD Attending Provider Active Team Status: Inactive Member Role Status Dates Dr. Talon Enciso MD Primary Care Provider Active Start: November 18, 2024 End: November 18, 2024 Dr. Talon Enciso MD Attending Provider Active Start: November 18, 2024 End: November 18, 2024 Dr. Talon Enciso MD Referring Provider Active Start: November 18, 2024 End: November 18, 2024 Team Status: Active Member Role/Relationship Status Dates Dr. Talon Enciso MD Primary Care Provider Active Team Status: Inactive Member Role/Relationship Status Dates Dr. Talon Enciso MD Primary Care Provider Active Start: November 18, 2024 End: November 18, 2024 Dr. Talon Enciso MD Attending Provider Active Start: November 18, 2024 End: November 18, 2024 Dr. Talon Enciso MD Referring Provider Active Start: November 18, 2024 End: November 18, 2024 Team Status: Active Member Role/Relationship Status Dates Dr. Talon Enciso MD Primary Care Provider Active Start: December 22, 2024 Dr. Talon Enciso MD Attending Provider Active Start: December 22, 2024 Dr. Talon Enciso MD Referring Provider Active Start: December 22, 2024 Team Status: Inactive Member Role/Relationship Status Dates Dr. Talon Enciso MD Primary Care Provider Active Start: December 23, 2024 End: December 23, 2024 Dr. Erick Hunt DO Emergency Provider Active Start: December 23, 2024 End: December 23, 2024 Team Status: Inactive Member Role/Relationship Status Dates Dr. Talon Enciso MD Primary Care Provider Active Start: December 22, 2024 End: December 22, 2024 Dr. Talon Enciso MD Attending Provider Active Start: December 22, 2024 End: December 22, 2024 Dr. Talon Enciso MD Referring Provider Active Start: December 22, 2024 End: December 22, 2024 FOR RECORDS PERTAINING TO PATIENTS WHO ARE [...] BE BASED ON THE PRIMARY CLINICAL RECORDS. [facility] provides no warranty or guarantee of the accuracy or completeness of information in this document.
[2025-03-01 10:58] LABS: T3 Total - Triiodothyronine 1.01 ng/mL (0.80-2.00)
[2025-03-02 13:02] LABS: Free T3 2.3 pg/mL (2.18-3.98)
== END | disposition home or self-care (01) ==
LOC: MTLAB 07:07
PROVIDERS: PCP Family Medicine; Referring Provider Family Medicine; Visit Provider Family Medicine
DX: E03.9 Hypothyroidism, unspecified (principal)
CPT/HCPCS: 36415; 84439; 84443; 84480; 84481